=== PATIENT | male | born 1960 | race Caucasian/White ===

== ENCOUNTER 2021-11-17 09:05 | Inpatient (IN) | payer OTHER ==
[2021-11-17 09:16] VITALS: BMI 24.0
[2021-11-17] MEDS ORDERED: ACETAMINOPHEN 1000 MG/100 ML BAG IVPB ONE (09:31)
[2021-11-17] MEDS ORDERED: ALBUTEROL SO4 2.5/IPRATROPIUM 0.5 INH SOL 3 ML VIAL.NEB. NEB ONE (10:02)
[2021-11-17 10:58] LABS: HEMATOCRIT 15.7 % (35.4-49); MCHC 32.1 g/dl (32.0-35.9); MEAN CELL VOLUME 93.3 fl (80-96); MEAN PLT VOLUME 7.9 fl (7.5-11.1); PLATELET COUNT 224 10^3/uL (134-434); RBC 1.69 M/mm3 (4.00-5.60); RDW 16.6 % (11.9-15.9); WHITE BLOOD COUNT 16.8 K/mm3 (4.0-10.0)
[2021-11-17 11:05] LABS: HEMOGLOBIN 5.1 GM/dL (11.7-16.9)
[2021-11-17 11:12] LABS: CHLORIDE 110 mmol/L (98-107); SODIUM 139 mmol/L (136-145)
[2021-11-17 11:15] LABS: ANION GAP 19 MMOL/L (8-16); CO2 11 mmol/L (21-32); GLUCOSE,RANDOM 141 mg/dL (74-106)
[2021-11-17 11:16] LABS: ALBUMIN 2.5 g/dl (3.4-5.0)
[2021-11-17 11:18] LABS: SGPT/ALT 25 U/L (13-61)
[2021-11-17 11:19] LABS: SGOT/AST 21 U/L (15-37)
[2021-11-17 11:20] LABS: BILIRUBIN,TOTAL 0.4 mg/dL (0.2-1); TOT PROT 6.2 g/dl (6.4-8.2)
[2021-11-17 11:21] LABS: ALK PHOS 97 U/L (45-117); BLOOD UREA NITROGEN 132.3 mg/dL (7-18); CALCIUM 6.9 mg/dL (8.5-10.1); CREATININE 11.6 mg/dL (0.55-1.3)
[2021-11-17] MEDS ORDERED: LACTATED RINGERS SOLUTION 1000 ML INFUS.BAG IV ONE (11:25)
[2021-11-17] MEDS ORDERED: VANCOMYCIN 1 GM in D5W (PRE-DOCKED) 1,000 MG/250 ML IVPB ONE (11:25)
[2021-11-17] MEDS ORDERED: CEFEPIME HCL/D5W 2 GM/50 ML BAG IVPB ONE (11:25)
[2021-11-17] MEDS ORDERED: VANCOMYCIN/WATER FOR INJ (PEG) 1,000 MG/200 ML BAG IVPB ONE ×2 (11:27→11:29)
[2021-11-17] MEDS ORDERED: CEFEPIME 2 GM/100 ML BAG IVPB ONE (11:28)
[2021-11-17] MEDS ORDERED: CALCIUM GLUCONATE 10% - 1,000 MG/10 ML VIAL IVPUSH ONE ×2 (11:53→15:20)
[2021-11-17] MEDS ORDERED: SODIUM BICARBONATE 8.4% 50 MEQ/50 ML DISP.SYRIN IVPUSH ONE ×2 (11:54→15:54)
[2021-11-17 11:55] LABS: ERYTHROCYTE SEDIMENTATION RATE 107 mm/hr (0-20)
[2021-11-17] MEDS ORDERED: SODIUM BICARBONATE 8.4% - 50 ML ONE ×2 (12:28→17:28)
[2021-11-17] MEDS ORDERED: CALCIUM GLUCONATE 10% - 1,000 MG/10 ML VIAL ONE ×2 (12:28→16:39)
[2021-11-17 12:29] LABS: ANISOCYTOSIS 2+; MACROCYTOSIS 1+; OVALOCYTE 2+; TEAR DROP CELLS 1+
[2021-11-17] MEDS ORDERED: LACTATED RINGERS SOLUTION 1,000 ML/1,000 ML INFUS.BAG IV STA (12:55)
[2021-11-17] MEDS ORDERED: SODIUM BICARBONATE 8.4% - 50 MEQ in SODIUM CHLORIDE 0.45% 1,000 ML IV SCH (14:00)
[2021-11-17] MEDS ORDERED: SODIUM BICARBONATE 8.4% 50 MEQ/50 ML VIAL ONE ×2 (14:03→17:27)
[2021-11-17 14:05] LABS: HEMATOCRIT 14.6 % (35.4-49); MCH 29.2 pg (25.7-33.7); MCHC 31.2 g/dl (32.0-35.9); MEAN CELL VOLUME 93.7 fl (80-96); MEAN PLT VOLUME 8.3 fl (7.5-11.1); PLATELET COUNT 174 10^3/uL (134-434); RBC 1.56 M/mm3 (4.00-5.60); WHITE BLOOD COUNT 16.9 K/mm3 (4.0-10.0)
[2021-11-17] MEDS ORDERED: ONDANSETRON 4 MG/2 ML VIAL IVPB ONE (14:06)
[2021-11-17 14:11] LABS: HEMOGLOBIN 4.6 GM/dL (11.7-16.9)
[2021-11-17 14:12] LABS: INR 1.25 (0.83-1.09); PROTHROMBIN TIME (PATIENT) 14.4 SEC (9.7-13.0)
[2021-11-17 14:14] LABS: ACTIVATED PTT 30.8 SECONDS (25.2-36.5)
[2021-11-17] MEDS ORDERED: ONDANSETRON 4 MG/2 ML VIAL ONE (14:21)
[2021-11-17 14:23] LABS: CHLORIDE 110 mmol/L (98-107); SODIUM 141 mmol/L (136-145)
[2021-11-17 14:26] LABS: ANION GAP 19 MMOL/L (8-16); CO2 11 mmol/L (21-32); GLUCOSE,RANDOM 154 mg/dL (74-106)
[2021-11-17 15:09] LABS: BLOOD UREA NITROGEN 127.6 mg/dL (7-18); CALCIUM 6.8 mg/dL (8.5-10.1); CREATININE 11.1 mg/dL (0.55-1.3); LDH 225 U/L (87-246)
[2021-11-17 16:02] LABS: HIV INTERPRETATION NEGATIVE (NEGATIVE)
[2021-11-17] MEDS: SODIUM BICARBONATE 8.4% - 75 MEQ in SODIUM CHLORIDE 0.45% 1,000 ML IV SCH (17:30)
[2021-11-17 17:50] LABS: IRON SERUM 10 ug/dL (50-175); TOTAL IRON BINDING CAPACITY 170 ug/dL (250-450)
[2021-11-17] MEDS ORDERED: CLINDAMYCIN 600MG PREMIX IVPB 600 MG/50 ML BAG IVPB SCH (18:00)
[2021-11-17] MEDS: CALCITRIOL 0.25 MCG CAPSULE (FP) PO SCH (18:29)
[2021-11-17] MEDS: CALCIUM 500MG/VIT-D 200 UNITS COMBO TABLET (FP) PO SCH (18:29)
[2021-11-18] MEDS: CALCITRIOL 0.25 MCG CAPSULE (FP) PO SCH ×2 (01:23→10:19)
[2021-11-18] MEDS: SODIUM BICARBONATE 8.4% - 75 MEQ in SODIUM CHLORIDE 0.45% 1,000 ML IV SCH ×3 (01:23→18:17)
[2021-11-18 02:20] LABS: HEMATOCRIT 18.9 % (35.4-49); MCH 29.7 pg (25.7-33.7); MCHC 33.1 g/dl (32.0-35.9); MEAN CELL VOLUME 89.7 fl (80-96); MEAN PLT VOLUME 7.6 fl (7.5-11.1); PLATELET COUNT 186 10^3/uL (134-434); RBC 2.11 M/mm3 (4.00-5.60); RDW 15.3 % (11.9-15.9); WHITE BLOOD COUNT 18.9 K/mm3 (4.0-10.0)
[2021-11-18 02:33] LABS: HEMOGLOBIN 6.3 GM/dL (11.7-16.9)
[2021-11-18] MEDS ORDERED: ALBUTEROL SO4 2.5/IPRATROPIUM 0.5 INH SOL 3 ML VIAL.NEB. NEB ONE (03:18)
[2021-11-18] MEDS ORDERED: ACETAMINOPHEN 1000 MG/100 ML BAG IVPB ONE (03:18)
[2021-11-18] MEDS: CALCIUM 500MG/VIT-D 200 UNITS COMBO TABLET (FP) PO SCH (10:19)
[2021-11-18] MEDS: PANTOPRAZOLE 40 MG TABLET PO SCH (10:19)
[2021-11-18] MEDS: CEFEPIME 0.5 GM in DEXTROSE 5%-WATER - 100 ML IVPB SCH (10:21)
[2021-11-18 10:48] LABS: EPI CELLS 8 /uL (0-25.1); HYALINE CASTS 1 /uL (0-3.1); PH,URINE 7.5 (5.0-8.0); URINE APPEARANCE CLEAR; URINE BACTERIA 20 /uL (0-1359); URINE BILIRUBIN NEGATIVE (NEGATIVE); URINE COLOR YELLOW; URINE GLUCOSE (UA) NEGATIVE (NEGATIVE); URINE KETONE NEGATIVE (NEGATIVE); URINE LEUK ESTERASE NEGATIVE (NEGATIVE); URINE NITRITE NEGATIVE (NEGATIVE); URINE PROTEIN 2+ (NEGATIVE); URINE RBC 34 /uL (0-23.9); URINE UROBILINOGEN 0.2 mg/dL (0.2-1.0); URINE WBC 18 /uL (0-25.8)
[2021-11-18 13:20] LABS: INR 1.22 (0.83-1.09); PROTHROMBIN TIME (PATIENT) 14.1 SEC (9.7-13.0)
[2021-11-18 13:26] LABS: HEMATOCRIT 23.5 % (35.4-49); MCH 31.4 pg (25.7-33.7); MCHC 33.8 g/dl (32.0-35.9); MEAN CELL VOLUME 92.7 fl (80-96); MEAN PLT VOLUME 8.1 fl (7.5-11.1); PLATELET COUNT 204 10^3/uL (134-434); RBC 2.53 M/mm3 (4.00-5.60); RDW 15.5 % (11.9-15.9); WHITE BLOOD COUNT 19.3 K/mm3 (4.0-10.0)
[2021-11-18 13:36] LABS: CHLORIDE 111 mmol/L (98-107); SODIUM 143 mmol/L (136-145)
[2021-11-18 13:38] LABS: CALCIUM 7.2 mg/dL (8.5-10.1)
[2021-11-18 13:39] LABS: ALBUMIN 2.3 g/dl (3.4-5.0); ANION GAP 18 MMOL/L (8-16); CO2 14 mmol/L (21-32); GLUCOSE,RANDOM 116 mg/dL (74-106)
[2021-11-18 13:42] LABS: PHOSPHOROUS 7.8 mg/dL (2.5-4.9); SGOT/AST 20 U/L (15-37); SGPT/ALT 23 U/L (13-61)
[2021-11-18 13:43] LABS: BILIRUBIN,TOTAL 0.6 mg/dL (0.2-1); TOT PROT 5.9 g/dl (6.4-8.2)
[2021-11-18 13:45] LABS: ALK PHOS 87 U/L (45-117)
[2021-11-18 13:46] LABS: BLOOD UREA NITROGEN 125.9 mg/dL (7-18); CREATININE 10.8 mg/dL (0.55-1.3)
[2021-11-18] MEDS ORDERED: SODIUM BICARBONATE 8.4% 50 MEQ/50 ML VIAL IVPUSH ONE (13:54)
[2021-11-18] MEDS ORDERED: CALCIUM GLUCONATE 10% - 1,000 MG/10 ML VIAL IVPUSH ONE (13:54)
[2021-11-18] MEDS: ONDANSETRON 4 MG/2 ML VIAL IVPUSH PRN ×2 (14:26→22:56)
[2021-11-18] MEDS: SODIUM BICARBONATE 650 MG TABLET PO SCH ×2 (14:32→22:55)
[2021-11-18 14:47] LABS: ANISOCYTOSIS 2+; MACROCYTOSIS 0; OVALOCYTE 0
[2021-11-18 16:15] LABS: CHLORIDE 110 mmol/L (98-107); SODIUM 143 mmol/L (136-145)
[2021-11-18 16:17] LABS: ALBUMIN 2.1 g/dl (3.4-5.0); ANION GAP 17 MMOL/L (8-16); CALCIUM 7.1 mg/dL (8.5-10.1); CO2 16 mmol/L (21-32)
[2021-11-18 16:18] LABS: GLUCOSE,RANDOM 176 mg/dL (74-106)
[2021-11-18 16:20] LABS: SGOT/AST 22 U/L (15-37)
[2021-11-18 16:21] LABS: SGPT/ALT 24 U/L (13-61)
[2021-11-18 16:22] LABS: BILIRUBIN,TOTAL 0.6 mg/dL (0.2-1); TOT PROT 5.6 g/dl (6.4-8.2)
[2021-11-18 16:23] LABS: ALK PHOS 88 U/L (45-117)
[2021-11-18 16:31] LABS: BLOOD UREA NITROGEN 123.3 mg/dL (7-18)
[2021-11-18] MEDS ORDERED: PANTOPRAZOLE SODIUM 40 MG VIAL IVPUSH ONE (21:31)
[2021-11-18] MEDS ORDERED: LIDOCAINE HCL 2% JELLY (30 ML/TUBE) TP PRN (21:33)
[2021-11-19] MEDS: SODIUM BICARBONATE 8.4% - 75 MEQ in SODIUM CHLORIDE 0.45% 1,000 ML IV SCH (03:13)
[2021-11-19] MEDS ORDERED: VANCOMYCIN/WATER FOR INJ (PEG) 1,000 MG/200 ML BAG IVPB ONE (06:38)
[2021-11-19] MEDS ORDERED: METOPROLOL TARTRATE 5 MG/5 ML VIAL IVPUSH ONE (06:56)
[2021-11-19 08:12] LABS: HEMATOCRIT 24.2 % (35.4-49); MCH 29.2 pg (25.7-33.7); MCHC 33.1 g/dl (32.0-35.9); MEAN CELL VOLUME 88.4 fl (80-96); MEAN PLT VOLUME 7.5 fl (7.5-11.1); PLATELET COUNT 211 10^3/uL (134-434); RBC 2.74 M/mm3 (4.00-5.60); RDW 15.9 % (11.9-15.9); WHITE BLOOD COUNT 17.5 K/mm3 (4.0-10.0)
[2021-11-19 08:29] LABS: CHLORIDE 107 mmol/L (98-107); SODIUM 142 mmol/L (136-145)
[2021-11-19 08:35] LABS: INR 1.13 (0.83-1.09)
[2021-11-19 08:36] LABS: ANION GAP 17 MMOL/L (8-16); CO2 19 mmol/L (21-32); GLUCOSE,RANDOM 116 mg/dL (74-106); MAGNESIUM 1.9 mg/dL (1.8-2.4)
[2021-11-19 08:37] LABS: ACTIVATED PTT 29.8 SECONDS (25.2-36.5)
[2021-11-19 08:39] LABS: BLOOD UREA NITROGEN 126.5 mg/dL (7-18); CALCIUM 6.9 mg/dL (8.5-10.1); CREATININE 10.5 mg/dL (0.55-1.3)
[2021-11-19] MEDS: CALCIUM ACETATE 667 MG CAPSULE (FP) PO SCH ×3 (09:42→18:38)
[2021-11-19] MEDS: CALCIUM 500MG/VIT-D 200 UNITS COMBO TABLET (FP) PO SCH ×2 (09:44→22:02)
[2021-11-19] MEDS: SODIUM BICARBONATE 650 MG TABLET PO SCH ×2 (09:44→22:02)
[2021-11-19] MEDS: PANTOPRAZOLE 40 MG TABLET PO SCH (09:44)
[2021-11-19] MEDS ORDERED: MIDAZOLAM HCL 2 MG/2 ML SINGLE DOSE VIAL ONE (09:47)
[2021-11-19 10:40] LABS: ANISOCYTOSIS 0; HELMET CELLS 0; HOWELL-JOLLY BODIES 0; MACROCYTOSIS 0; OVALOCYTE 0; ROULEAU 0; SICKELED CELLS 0; TARGET CELLS 0; TEAR DROP CELLS 0; TOXIC GRANULATION 0
[2021-11-19] MEDS: CEFEPIME 0.5 GM in DEXTROSE 5%-WATER - 100 ML IVPB SCH (10:45)
[2021-11-19] MEDS ORDERED: METOPROLOL TARTRATE 25 MG TABLET (FP) PO SCH (11:45)
[2021-11-19] MEDS ORDERED: CALCIUM GLUCONATE 10% - 1,000 MG/10 ML VIAL IVPB ONE (11:59)
[2021-11-19] MEDS ORDERED: SODIUM CHLORIDE 0.45% 1,000 ML IV SCH (12:04)
[2021-11-19] MEDS ORDERED: PROPOFOL 20 ML ONE (14:08)
[2021-11-19] MEDS ORDERED: ROCURONIUM BROMIDE 50 MG/5 ML SYRINGE ONE (14:11)
[2021-11-19] MEDS ORDERED: DEXAMETHASONE SOD PHOSPHATE 4 MG/1 ML VIAL ONE (16:00)
[2021-11-19] MEDS ORDERED: ONDANSETRON 4 MG/2 ML VIAL IVPUSH PRN ×2 (16:03→17:03)
[2021-11-19] MEDS ORDERED: NEOSTIGMINE METHYLSULFATE 0.5 MG/1 ML - 10 ML MDV ONE (16:16)
[2021-11-19] MEDS ORDERED: oxyCODONE HCL 5 MG TABLET PO PRN ×2 (16:36→16:37)
[2021-11-19] MEDS ORDERED: morphine CARPU-JECT 4 MG/1 ML DISP.SYRIN IVPUSH PRN (16:37)
[2021-11-19] MEDS ORDERED: morphine SULFATE 4 MG/ML VIAL IVPUSH PRN (16:58)
[2021-11-19 17:06] LABS: HEMATOCRIT 22.8 % (35.4-49); HEMOGLOBIN 7.5 GM/dL (11.7-16.9); MCH 29.1 pg (25.7-33.7); MCHC 32.7 g/dl (32.0-35.9); MEAN PLT VOLUME 7.3 fl (7.5-11.1); PLATELET COUNT 235 10^3/uL (134-434); RBC 2.56 M/mm3 (4.00-5.60); RDW 15.8 % (11.9-15.9); WHITE BLOOD COUNT 22.7 K/mm3 (4.0-10.0)
[2021-11-19 17:34] LABS: ANISOCYTOSIS 1+; MACROCYTOSIS 1+
[2021-11-19] MEDS ORDERED: CALCIUM 500MG/VIT-D 200 UNITS COMBO TABLET (FP) PO SCH (22:00)
[2021-11-19] MEDS: METOPROLOL TARTRATE 25 MG TABLET (FP) PO SCH (22:03)
[2021-11-19] MEDS: SODIUM CHLORIDE 0.45% 1,000 ML IV SCH (22:03)
[2021-11-19] MEDS: ACETAMINOPHEN 1000 MG/100 ML BAG IVPB SCH (23:52)
[2021-11-20 01:34] LABS: HEMATOCRIT 26.1 % (35.4-49); HEMOGLOBIN 8.3 GM/dL (11.7-16.9); MCH 29.8 pg (25.7-33.7); MCHC 31.7 g/dl (32.0-35.9); MEAN CELL VOLUME 94.1 fl (80-96); MEAN PLT VOLUME 7.9 fl (7.5-11.1); PLATELET COUNT 210 10^3/uL (134-434); RBC 2.77 M/mm3 (4.00-5.60); WHITE BLOOD COUNT 23.4 K/mm3 (4.0-10.0)
[2021-11-20] MEDS: SODIUM CHLORIDE 0.45% 1,000 ML IV SCH ×3 (05:10→21:57)
[2021-11-20] MEDS: ACETAMINOPHEN 1000 MG/100 ML BAG IVPB SCH ×2 (05:11→09:59)
[2021-11-20] MEDS ORDERED: METOPROLOL TARTRATE 5 MG/5 ML VIAL IVPUSH PRN (08:38)
[2021-11-20] MEDS: CALCIUM ACETATE 667 MG CAPSULE (FP) PO SCH ×3 (09:49→17:11)
[2021-11-20] MEDS: CALCIUM 500MG/VIT-D 200 UNITS COMBO TABLET (FP) PO SCH ×2 (09:50→22:11)
[2021-11-20] MEDS: METOPROLOL TARTRATE 25 MG TABLET (FP) PO SCH ×2 (09:50→22:04)
[2021-11-20] MEDS: SODIUM BICARBONATE 650 MG TABLET PO SCH ×2 (09:50→22:11)
[2021-11-20] MEDS: PANTOPRAZOLE 40 MG TABLET PO SCH (09:50)
[2021-11-20] MEDS: CEFEPIME 0.5 GM in DEXTROSE 5%-WATER - 100 ML IVPB SCH (11:00)
[2021-11-20] MEDS: CLINDAMYCIN 600MG PREMIX IVPB 600 MG/50 ML BAG IVPB SCH (18:54)
[2021-11-21] MEDS: CLINDAMYCIN 600MG PREMIX IVPB 600 MG/50 ML BAG IVPB SCH ×2 (01:27→11:38)
[2021-11-21] MEDS: SODIUM CHLORIDE 0.45% 1,000 ML IV SCH (06:02)
[2021-11-21] MEDS: COLLAGENASE CLOSTRIDIUM HIST. 30 GRAMS TUBE TP SCH (09:44)
[2021-11-21] MEDS: CEFEPIME 0.5 GM in DEXTROSE 5%-WATER - 100 ML IVPB SCH (09:45)
[2021-11-21] MEDS: METOPROLOL TARTRATE 25 MG TABLET (FP) PO SCH ×2 (09:55→21:16)
[2021-11-21] MEDS: SODIUM BICARBONATE 650 MG TABLET PO SCH ×2 (10:01→21:16)
[2021-11-21] MEDS: CALCIUM ACETATE 667 MG CAPSULE (FP) PO SCH ×3 (10:02→17:11)
[2021-11-21] MEDS: PANTOPRAZOLE 40 MG TABLET PO SCH (10:02)
[2021-11-21] MEDS: CALCIUM 500MG/VIT-D 200 UNITS COMBO TABLET (FP) PO SCH ×2 (10:02→21:16)
[2021-11-21] MEDS: DAPTOMYCIN 400 MG in SODIUM CHLORIDE 50 ML IVPB SCH (15:54)
[2021-11-21] MEDS: TAMSULOSIN HCL 0.4 MG CAP PO SCH (15:54)
[2021-11-21 16:50] LABS: HEMATOCRIT 21.4 % (35.4-49); MCH 29.3 pg (25.7-33.7); MCHC 32.9 g/dl (32.0-35.9); MEAN CELL VOLUME 88.9 fl (80-96); MEAN PLT VOLUME 6.9 fl (7.5-11.1); PLATELET COUNT 223 10^3/uL (134-434); RDW 16.1 % (11.9-15.9); WHITE BLOOD COUNT 22.9 K/mm3 (4.0-10.0)
[2021-11-21 17:07] LABS: ATYPICAL pANCA <1:20 titer (Neg:<1:20); C-ANCA <1:20 titer (Neg:<1:20)
[2021-11-21 17:07] LABS: ATYPICAL pANCA <1:20 titer (Neg:<1:20); C-ANCA <1:20 titer (Neg:<1:20)
[2021-11-21 17:15] LABS: CHLORIDE 99 mmol/L (98-107); SODIUM 133 mmol/L (136-145)
[2021-11-21 17:17] LABS: ALBUMIN 2.2 g/dl (3.4-5.0); ANION GAP 19 MMOL/L (8-16); CO2 16 mmol/L (21-32); GLUCOSE,RANDOM 185 mg/dL (74-106)
[2021-11-21 17:20] LABS: SGOT/AST 13 U/L (15-37); SGPT/ALT 18 U/L (13-61)
[2021-11-21 17:22] LABS: BILIRUBIN,TOTAL 0.3 mg/dL (0.2-1); TOT PROT 5.8 g/dl (6.4-8.2)
[2021-11-21 17:23] LABS: ALK PHOS 81 U/L (45-117); BLOOD UREA NITROGEN 131.8 mg/dL (7-18); CALCIUM 6.4 mg/dL (8.5-10.1); CREATININE 10.8 mg/dL (0.55-1.3)
[2021-11-21 18:00] LABS: ANISOCYTOSIS 1+; MACROCYTOSIS 1+; OVALOCYTE 1+
[2021-11-22 04:14] LABS: OPIATES, URI NEGATIVE (NEGATIVE); PHENCYCLIDINE,URINE NEGATIVE (NEGATIVE); URINE BARBITURATES NEGATIVE (NEGATIVE)
[2021-11-22 04:15] LABS: METHADONE, UR NEGATIVE (NEGATIVE)
[2021-11-22 04:45] LABS: COCAINE, UR NEGATIVE (NEGATIVE); URINE AMPHETAMINES NEGATIVE (NEGATIVE); URINE BENZODIAZEPINES POSITIVE (NEGATIVE)
[2021-11-22] MEDS ORDERED: CALCIUM GLUCONATE 10% - 1,000 MG/10 ML VIAL IVPUSH ONE (07:55)
[2021-11-22] MEDS ORDERED: LORazepam 1 MG TABLET PO PRN (09:40)
[2021-11-22] MEDS: SODIUM BICARBONATE 650 MG TABLET PO SCH ×2 (10:05→23:30)
[2021-11-22] MEDS: TAMSULOSIN HCL 0.4 MG CAP PO SCH (10:05)
[2021-11-22] MEDS: COLLAGENASE CLOSTRIDIUM HIST. 30 GRAMS TUBE TP SCH (10:05)
[2021-11-22] MEDS: CALCIUM ACETATE 667 MG CAPSULE (FP) PO SCH ×3 (10:05→18:31)
[2021-11-22] MEDS: CALCIUM 500MG/VIT-D 200 UNITS COMBO TABLET (FP) PO SCH ×2 (10:05→23:31)
[2021-11-22] MEDS: PANTOPRAZOLE 40 MG TABLET PO SCH (10:05)
[2021-11-22] MEDS: METOPROLOL TARTRATE 25 MG TABLET (FP) PO SCH ×2 (10:05→23:31)
[2021-11-22] MEDS: LORazepam 2 MG TABLET PO SCH ×3 (11:43→23:41)
[2021-11-22] MEDS ORDERED: SODIUM CHLORIDE 250 ML IV PRN ×2 (12:55→12:56)
[2021-11-22 15:27] LABS: HEMATOCRIT 17.4 % (35.4-49); MCH 29.5 pg (25.7-33.7); MCHC 32.7 g/dl (32.0-35.9); MEAN CELL VOLUME 90.3 fl (80-96); MEAN PLT VOLUME 7.5 fl (7.5-11.1); PLATELET COUNT 150 10^3/uL (134-434); RBC 1.92 M/mm3 (4.00-5.60); RDW 15.7 % (11.9-15.9)
[2021-11-22 15:38] LABS: HEMOGLOBIN 5.7 GM/dL (11.7-16.9)
[2021-11-22 15:56] LABS: CHLORIDE 103 mmol/L (98-107); SODIUM 136 mmol/L (136-145)
[2021-11-22 15:58] LABS: ANION GAP 16 MMOL/L (8-16); CO2 17 mmol/L (21-32); GLUCOSE,RANDOM 193 mg/dL (74-106)
[2021-11-22 16:01] LABS: SGOT/AST 13 U/L (15-37); SGPT/ALT 16 U/L (13-61)
[2021-11-22 16:02] LABS: TOT PROT 5.1 g/dl (6.4-8.2)
[2021-11-22 16:03] LABS: BILIRUBIN,TOTAL 0.3 mg/dL (0.2-1)
[2021-11-22 16:04] LABS: ALK PHOS 70 U/L (45-117)
[2021-11-22 16:05] LABS: BLOOD UREA NITROGEN 135.9 mg/dL (7-18); CALCIUM 5.8 mg/dL (8.5-10.1); CREATININE 11.1 mg/dL (0.55-1.3)
[2021-11-22] MEDS ORDERED: CALCIUM GLUC IN NACL, ISO-OSM 1 GM/50 ML BAG IVPB ONE (16:30)
[2021-11-22] MEDS ORDERED: CALCIUM GLUCONATE 10% - 1,000 MG/10 ML VIAL IVPB ONE (16:45)
[2021-11-22] MEDS: SODIUM CHLORIDE 1,000 ML IV SCH (18:43)
[2021-11-22] MEDS ORDERED: LORazepam 1 MG TABLET PO SCH (23:18)
[2021-11-22] MEDS: LORazepam 1 MG TABLET PO SCH (23:29)
[2021-11-22] MEDS: OLANZapine 5 MG TABLET PO SCH (23:30)
[2021-11-22] MEDS: PANTOPRAZOLE SODIUM 40 MG VIAL IVPUSH SCH (23:30)
[2021-11-23] MEDS: LORazepam 1 MG TABLET PO SCH ×4 (04:24→22:32)
[2021-11-23] MEDS: CALCIUM ACETATE 667 MG CAPSULE (FP) PO SCH ×3 (08:55→18:46)
[2021-11-23] MEDS: TAMSULOSIN HCL 0.4 MG CAP PO SCH (08:55)
[2021-11-23] MEDS: LORazepam 2 MG/ML SDV VIAL IVPUSH PRN (10:46)
[2021-11-23] MEDS: CALCIUM 500MG/VIT-D 200 UNITS COMBO TABLET (FP) PO SCH ×2 (10:50→21:12)
[2021-11-23] MEDS: OLANZapine 5 MG TABLET PO SCH ×2 (10:50→21:12)
[2021-11-23] MEDS: PANTOPRAZOLE SODIUM 40 MG VIAL IVPUSH SCH ×2 (10:55→21:12)
[2021-11-23] MEDS: METOPROLOL TARTRATE 25 MG TABLET (FP) PO SCH ×2 (10:55→21:12)
[2021-11-23] MEDS: COLLAGENASE CLOSTRIDIUM HIST. 30 GRAMS TUBE TP SCH (11:15)
[2021-11-23] MEDS: SODIUM BICARBONATE 650 MG TABLET PO SCH ×2 (12:35→21:12)
[2021-11-23] MEDS: DAPTOMYCIN 400 MG in SODIUM CHLORIDE 50 ML IVPB SCH (13:45)
[2021-11-23 14:44] LABS: HEMATOCRIT 19.6 % (35.4-49); MCH 29.6 pg (25.7-33.7); MCHC 32.6 g/dl (32.0-35.9); MEAN CELL VOLUME 90.8 fl (80-96); MEAN PLT VOLUME 7.4 fl (7.5-11.1); PLATELET COUNT 142 10^3/uL (134-434); RBC 2.16 M/mm3 (4.00-5.60); RDW 16.1 % (11.9-15.9); WHITE BLOOD COUNT 11.3 K/mm3 (4.0-10.0)
[2021-11-23] MEDS ORDERED: SODIUM CHLORIDE 250 ML IV PRN (14:45)
[2021-11-23 14:53] LABS: HEMOGLOBIN 6.4 GM/dL (11.7-16.9)
[2021-11-23 15:31] LABS: ANISOCYTOSIS 1+; MACROCYTOSIS 0; OVALOCYTE 1+; TEAR DROP CELLS 1+
[2021-11-23 16:47] LABS: CHLORIDE 106 mmol/L (98-107); SODIUM 140 mmol/L (136-145)
[2021-11-23 16:51] LABS: ALBUMIN 1.9 g/dl (3.4-5.0); ANION GAP 13 MMOL/L (8-16); CO2 22 mmol/L (21-32); GLUCOSE,RANDOM 89 mg/dL (74-106)
[2021-11-23 16:54] LABS: SGOT/AST 22 U/L (15-37); SGPT/ALT 13 U/L (13-61)
[2021-11-23 16:55] LABS: BILIRUBIN,TOTAL 0.6 mg/dL (0.2-1)
[2021-11-23 16:57] LABS: ALK PHOS 58 U/L (45-117)
[2021-11-23 17:01] LABS: BLOOD UREA NITROGEN 98.6 mg/dL (7-18); CALCIUM 6.4 mg/dL (8.5-10.1); CREATININE 8.3 mg/dL (0.55-1.3)
[2021-11-23] MEDS ORDERED: CALCIUM GLUCONATE 10% - 1,000 MG/10 ML VIAL IVPB ONE ×2 (17:07→20:30)
[2021-11-23] MEDS ORDERED: IRON SUCROSE INJECTION 200 MG in SODIUM CHLORIDE 90 ML IVPB ONE (19:00)
[2021-11-23] MEDS: SODIUM CHLORIDE 1,000 ML IV SCH (21:12)
[2021-11-23] MEDS ORDERED: ALBUTEROL SO4 HFA INHALER IH PRN (21:19)
[2021-11-23] MEDS ORDERED: ALBUTEROL SO4 2.5/IPRATROPIUM 0.5 INH SOL 3 ML VIAL.NEB. NEB ONE (22:12)
[2021-11-24] MEDS ORDERED: ALBUTEROL SO4 2.5/IPRATROPIUM 0.5 INH SOL 3 ML VIAL.NEB. NEB ONE ×2 (03:19→03:30)
[2021-11-24] MEDS: LORazepam 2 MG/ML SDV VIAL IVPUSH PRN ×4 (05:00→22:18)
[2021-11-24] MEDS: LORazepam 1 MG TABLET PO SCH ×5 (05:00→22:07)
[2021-11-24] MEDS: TAMSULOSIN HCL 0.4 MG CAP PO SCH (08:04)
[2021-11-24] MEDS: CALCIUM ACETATE 667 MG CAPSULE (FP) PO SCH ×3 (08:04→18:41)
[2021-11-24] MEDS: PANTOPRAZOLE SODIUM 40 MG VIAL IVPUSH SCH ×2 (10:05→21:03)
[2021-11-24] MEDS: SODIUM BICARBONATE 650 MG TABLET PO SCH ×2 (10:05→21:03)
[2021-11-24] MEDS: CALCIUM 500MG/VIT-D 200 UNITS COMBO TABLET (FP) PO SCH ×2 (10:05→21:03)
[2021-11-24] MEDS: METOPROLOL TARTRATE 25 MG TABLET (FP) PO SCH ×2 (10:05→21:03)
[2021-11-24] MEDS: OLANZapine 5 MG TABLET PO SCH ×2 (10:06→21:03)
[2021-11-24] MEDS: COLLAGENASE CLOSTRIDIUM HIST. 30 GRAMS TUBE TP SCH (10:50)
[2021-11-24 13:10] LABS: HEMATOCRIT 25.3 % (35.4-49); HEMOGLOBIN 8.4 GM/dL (11.7-16.9); MCH 29.5 pg (25.7-33.7); MCHC 33.2 g/dl (32.0-35.9); MEAN PLT VOLUME 7.3 fl (7.5-11.1); PLATELET COUNT 158 10^3/uL (134-434); RBC 2.84 M/mm3 (4.00-5.60); RDW 17.5 % (11.9-15.9); WHITE BLOOD COUNT 13.6 K/mm3 (4.0-10.0)
[2021-11-24 13:27] LABS: CHLORIDE 108 mmol/L (98-107); SODIUM 142 mmol/L (136-145)
[2021-11-24 13:30] LABS: ANION GAP 14 MMOL/L (8-16); BLOOD UREA NITROGEN 84.9 mg/dL (7-18); CO2 21 mmol/L (21-32); GLUCOSE,RANDOM 69 mg/dL (74-106); MAGNESIUM 1.9 mg/dL (1.8-2.4)
[2021-11-24 13:33] LABS: PHOSPHOROUS 5.8 mg/dL (2.5-4.9); SGOT/AST 19 U/L (15-37); SGPT/ALT 15 U/L (13-61)
[2021-11-24 13:35] LABS: BILIRUBIN,TOTAL 0.6 mg/dL (0.2-1); TOT PROT 5.4 g/dl (6.4-8.2)
[2021-11-24 13:36] LABS: ALK PHOS 68 U/L (45-117)
[2021-11-24 13:37] LABS: CALCIUM 6.3 mg/dL (8.5-10.1); CREATININE 8.4 mg/dL (0.55-1.3)
[2021-11-24] MEDS ORDERED: CALCIUM GLUCONATE 10% - 1,000 MG/10 ML VIAL IVPUSH ONE ×2 (14:08→18:30)
[2021-11-24 14:25] LABS: ANISOCYTOSIS 0; MACROCYTOSIS 0
[2021-11-24] MEDS: SODIUM CHLORIDE 1,000 ML IV SCH (17:13)
[2021-11-24] MEDS ORDERED: SODIUM CHLORIDE 250 ML IV PRN (17:41)
[2021-11-25] MEDS ORDERED: LORazepam 0.5 MG TABLET PO PRN
[2021-11-25] MEDS: LORazepam 2 MG/ML SDV VIAL IVPUSH PRN ×4 (02:34→23:11)
[2021-11-25] MEDS ORDERED: HALOPERIDOL LACTATE 5 MG/ML IM ONE (04:57)
[2021-11-25] MEDS: LORazepam 0.5 MG TABLET PO SCH ×4 (05:15→22:32)
[2021-11-25] MEDS: TAMSULOSIN HCL 0.4 MG CAP PO SCH (07:49)
[2021-11-25] MEDS: CALCIUM ACETATE 667 MG CAPSULE (FP) PO SCH ×3 (07:49→18:42)
[2021-11-25] MEDS: METOPROLOL TARTRATE 25 MG TABLET (FP) PO SCH ×2 (09:03→22:32)
[2021-11-25] MEDS: CALCIUM 500MG/VIT-D 200 UNITS COMBO TABLET (FP) PO SCH ×2 (09:03→22:32)
[2021-11-25 09:06] LABS: BASO % 0.1 % (0-2.0); EOS % 0.9 % (0-4.5); HEMATOCRIT 26.1 % (35.4-49); HEMOGLOBIN 8.9 GM/dL (11.7-16.9); LYMPH % 3.8 % (8-40); MCHC 34.1 g/dl (32.0-35.9); MEAN PLT VOLUME 7.1 fl (7.5-11.1); MONO % 4.8 % (3.8-10.2); NEUT % 90.4 % (42.8-82.8); PLATELET COUNT 159 10^3/uL (134-434); RBC 2.97 M/mm3 (4.00-5.60); RDW 17.2 % (11.9-15.9); WHITE BLOOD COUNT 11.8 K/mm3 (4.0-10.0)
[2021-11-25] MEDS: SODIUM BICARBONATE 650 MG TABLET PO SCH ×2 (09:09→22:33)
[2021-11-25] MEDS: OLANZapine 5 MG TABLET PO SCH ×2 (09:09→22:32)
[2021-11-25] MEDS: COLLAGENASE CLOSTRIDIUM HIST. 30 GRAMS TUBE TP SCH (09:15)
[2021-11-25] MEDS: PANTOPRAZOLE SODIUM 40 MG VIAL IVPUSH SCH ×2 (09:16→21:58)
[2021-11-25 09:22] LABS: CHLORIDE 108 mmol/L (98-107); SODIUM 145 mmol/L (136-145)
[2021-11-25 09:28] LABS: ANION GAP 9 MMOL/L (8-16); CO2 27 mmol/L (21-32); GLUCOSE,RANDOM 82 mg/dL (74-106); MAGNESIUM 1.8 mg/dL (1.8-2.4)
[2021-11-25 09:30] LABS: PHOSPHOROUS 4.2 mg/dL (2.5-4.9); SGOT/AST 26 U/L (15-37)
[2021-11-25 09:31] LABS: CREATININE 5.1 mg/dL (0.55-1.3); SGPT/ALT 16 U/L (13-61)
[2021-11-25 09:32] LABS: BILIRUBIN,TOTAL 0.6 mg/dL (0.2-1); TOT PROT 5.3 g/dl (6.4-8.2)
[2021-11-25 09:33] LABS: ALK PHOS 69 U/L (45-117)
[2021-11-25 10:09] LABS: BLOOD UREA NITROGEN 46.3 mg/dL (7-18); CALCIUM 6.7 mg/dL (8.5-10.1)
[2021-11-25 12:01] LABS: ANISOCYTOSIS 1+; MACROCYTOSIS 0
[2021-11-25] MEDS: DAPTOMYCIN 400 MG in SODIUM CHLORIDE 50 ML IVPB SCH (12:56)
[2021-11-25] MEDS ORDERED: EPOETIN ALFA-EPBX 10,000 UNIT/ML VIAL IVPUSH ONE (14:00)
[2021-11-25] MEDS ORDERED: PARICALCITOL 5 MCG/ML VIAL IVPUSH ONE (14:30)
[2021-11-26] MEDS ORDERED: LORazepam 2 MG/ML SDV VIAL IVPUSH ONE (00:31)
[2021-11-26 01:28] LABS: HEMATOCRIT 24.5 % (35.4-49); HEMOGLOBIN 8.2 GM/dL (11.7-16.9); MCH 29.8 pg (25.7-33.7); MCHC 33.2 g/dl (32.0-35.9); MEAN CELL VOLUME 89.7 fl (80-96); MEAN PLT VOLUME 7.1 fl (7.5-11.1); PLATELET COUNT 150 10^3/uL (134-434); RBC 2.74 M/mm3 (4.00-5.60); RDW 17.1 % (11.9-15.9); WHITE BLOOD COUNT 13.3 K/mm3 (4.0-10.0)
[2021-11-26] MEDS ORDERED: LORazepam 0.5 MG TABLET PO ONE (05:00)
[2021-11-26] MEDS: CALCIUM ACETATE 667 MG CAPSULE (FP) PO SCH ×3 (09:56→16:51)
[2021-11-26] MEDS: SODIUM BICARBONATE 650 MG TABLET PO SCH ×2 (09:57→21:22)
[2021-11-26] MEDS: OLANZapine 5 MG TABLET PO SCH ×2 (09:57→21:22)
[2021-11-26] MEDS: PANTOPRAZOLE SODIUM 40 MG VIAL IVPUSH SCH ×2 (09:57→21:22)
[2021-11-26] MEDS: METOPROLOL TARTRATE 25 MG TABLET (FP) PO SCH ×2 (09:57→21:22)
[2021-11-26] MEDS: TAMSULOSIN HCL 0.4 MG CAP PO SCH (09:58)
[2021-11-26] MEDS: CALCIUM 500MG/VIT-D 200 UNITS COMBO TABLET (FP) PO SCH ×2 (09:58→21:21)
[2021-11-26] MEDS: COLLAGENASE CLOSTRIDIUM HIST. 30 GRAMS TUBE TP SCH (10:00)
[2021-11-27] MEDS: CALCIUM ACETATE 667 MG CAPSULE (FP) PO SCH ×3 (09:24→16:56)
[2021-11-27] MEDS: TAMSULOSIN HCL 0.4 MG CAP PO SCH (09:24)
[2021-11-27] MEDS: COLLAGENASE CLOSTRIDIUM HIST. 30 GRAMS TUBE TP SCH (09:24)
[2021-11-27] MEDS: PANTOPRAZOLE SODIUM 40 MG VIAL IVPUSH SCH ×2 (09:24→22:21)
[2021-11-27] MEDS: CALCIUM 500MG/VIT-D 200 UNITS COMBO TABLET (FP) PO SCH ×2 (09:24→22:21)
[2021-11-27] MEDS: METOPROLOL TARTRATE 25 MG TABLET (FP) PO SCH ×2 (09:24→22:21)
[2021-11-27] MEDS: SODIUM BICARBONATE 650 MG TABLET PO SCH ×2 (09:26→22:21)
[2021-11-27] MEDS: OLANZapine 5 MG TABLET PO SCH ×2 (09:26→22:21)
[2021-11-27 09:35] LABS: HEMATOCRIT 24.4 % (35.4-49); HEMOGLOBIN 8.1 GM/dL (11.7-16.9); MCH 29.8 pg (25.7-33.7); MCHC 33.2 g/dl (32.0-35.9); MEAN CELL VOLUME 89.5 fl (80-96); MEAN PLT VOLUME 7.3 fl (7.5-11.1); PLATELET COUNT 156 10^3/uL (134-434); RBC 2.73 M/mm3 (4.00-5.60); RDW 17.3 % (11.9-15.9); WHITE BLOOD COUNT 13.1 K/mm3 (4.0-10.0)
[2021-11-27 10:03] LABS: ALBUMIN 2.2 g/dl (3.4-5.0); BLOOD UREA NITROGEN 34.9 mg/dL (7-18); MAGNESIUM 1.9 mg/dL (1.8-2.4)
[2021-11-27 10:06] LABS: PHOSPHOROUS 3.5 mg/dL (2.5-4.9)
[2021-11-27 10:07] LABS: BILIRUBIN,TOTAL 0.7 mg/dL (0.2-1); TOT PROT 5.5 g/dl (6.4-8.2)
[2021-11-27 10:08] LABS: ANISOCYTOSIS 1+; CALCIUM 7.8 mg/dL (8.5-10.1); MACROCYTOSIS 1+; OVALOCYTE 1+
[2021-11-27] MEDS: DAPTOMYCIN 400 MG in SODIUM CHLORIDE 50 ML IVPB SCH (13:05)
[2021-11-27 18:07] LABS: KAPPA/LAMBDA RATIO, UR 2.2 (1.83-14.26)
[2021-11-28 07:10] LABS: HEMATOCRIT 21.1 % (35.4-49); MCH 30.1 pg (25.7-33.7); MCHC 33.1 g/dl (32.0-35.9); MEAN CELL VOLUME 90.8 fl (80-96); MEAN PLT VOLUME 7.4 fl (7.5-11.1); PLATELET COUNT 142 10^3/uL (134-434); RBC 2.33 M/mm3 (4.00-5.60); RDW 18.4 % (11.9-15.9); WHITE BLOOD COUNT 11.9 K/mm3 (4.0-10.0)
[2021-11-28 07:32] LABS: BLOOD UREA NITROGEN 44.5 mg/dL (7-18); CALCIUM 7.1 mg/dL (8.5-10.1); MAGNESIUM 1.9 mg/dL (1.8-2.4)
[2021-11-28 07:35] LABS: CREATININE 5.4 mg/dL (0.55-1.3); PHOSPHOROUS 3.9 mg/dL (2.5-4.9)
[2021-11-28 07:37] LABS: BILIRUBIN,TOTAL 0.5 mg/dL (0.2-1); TOT PROT 5.2 g/dl (6.4-8.2)
[2021-11-28 08:51] LABS: ANISOCYTOSIS 1+; MACROCYTOSIS 0
[2021-11-28] MEDS: METOPROLOL TARTRATE 25 MG TABLET (FP) PO SCH ×3 (10:02→21:04)
[2021-11-28] MEDS: CALCIUM 500MG/VIT-D 200 UNITS COMBO TABLET (FP) PO SCH ×3 (10:02→21:04)
[2021-11-28] MEDS: OLANZapine 5 MG TABLET PO SCH ×3 (10:02→21:10)
[2021-11-28] MEDS: SODIUM BICARBONATE 650 MG TABLET PO SCH ×4 (10:02→21:04)
[2021-11-28] MEDS: PANTOPRAZOLE SODIUM 40 MG VIAL IVPUSH SCH ×4 (10:03→21:52)
[2021-11-28] MEDS: CALCIUM ACETATE 667 MG CAPSULE (FP) PO SCH ×4 (10:03→18:52)
[2021-11-28] MEDS: TAMSULOSIN HCL 0.4 MG CAP PO SCH ×2 (10:03→10:29)
[2021-11-28] MEDS: COLLAGENASE CLOSTRIDIUM HIST. 30 GRAMS TUBE TP SCH (10:03)
[2021-11-28] MEDS ORDERED: oxyCODONE HCL 5 MG TABLET PO PRN (12:23)
[2021-11-28] MEDS ORDERED: ACETAMINOPHEN 1000 MG/100 ML BAG IVPB PRN (12:23)
[2021-11-28] MEDS ORDERED: EPOETIN ALFA 10,000 UNIT/1 ML VIAL SQ ONE (12:27)
[2021-11-28] MEDS ORDERED: SODIUM CHLORIDE 0.45% 1,000 ML IV SCH (12:30)
[2021-11-28] MEDS ORDERED: IRON SUCROSE INJECTION 100 MG in SODIUM CHLORIDE 95 ML IVPB ONE (12:31)
[2021-11-28] MEDS: FERROUS SO4 325 MG TABLET (FP) PO SCH ×2 (12:50→21:04)
[2021-11-28] MEDS ORDERED: ONDANSETRON 4 MG/2 ML VIAL IVPUSH PRN (19:08)
[2021-11-28] MEDS ORDERED: ALBUTEROL SO4 HFA INHALER IH PRN (19:08)
[2021-11-28] MEDS ORDERED: LORazepam 2 MG/ML SDV VIAL IVPUSH PRN (19:08)
[2021-11-28] MEDS ORDERED: METOPROLOL TARTRATE 5 MG/5 ML VIAL IVPUSH PRN (19:08)
[2021-11-29] MEDS: SODIUM BICARBONATE 650 MG TABLET PO SCH ×3 (05:00→21:59)
[2021-11-29 08:11] LABS: HEMATOCRIT 22.9 % (35.4-49); HEMOGLOBIN 7.6 GM/dL (11.7-16.9); MCH 30.9 pg (25.7-33.7); MCHC 33.3 g/dl (32.0-35.9); MEAN PLT VOLUME 7.6 fl (7.5-11.1); PLATELET COUNT 136 10^3/uL (134-434); RBC 2.46 M/mm3 (4.00-5.60); RDW 18.5 % (11.9-15.9); WHITE BLOOD COUNT 10.2 K/mm3 (4.0-10.0)
[2021-11-29 08:35] LABS: ALBUMIN 2.1 g/dl (3.4-5.0); BLOOD UREA NITROGEN 53.7 mg/dL (7-18); CALCIUM 7.2 mg/dL (8.5-10.1)
[2021-11-29 08:38] LABS: CREATININE 5.9 mg/dL (0.55-1.3); PHOSPHOROUS 4.7 mg/dL (2.5-4.9)
[2021-11-29 08:40] LABS: BILIRUBIN,TOTAL 0.7 mg/dL (0.2-1); TOT PROT 5.4 g/dl (6.4-8.2)
[2021-11-29] MEDS: CALCIUM ACETATE 667 MG CAPSULE (FP) PO SCH ×3 (10:35→18:01)
[2021-11-29] MEDS: TAMSULOSIN HCL 0.4 MG CAP PO SCH (10:36)
[2021-11-29] MEDS: OLANZapine 5 MG TABLET PO SCH ×2 (10:38→21:58)
[2021-11-29] MEDS: METOPROLOL TARTRATE 25 MG TABLET (FP) PO SCH ×2 (10:38→21:59)
[2021-11-29] MEDS: COLLAGENASE CLOSTRIDIUM HIST. 30 GRAMS TUBE TP SCH (10:39)
[2021-11-29] MEDS: PANTOPRAZOLE SODIUM 40 MG VIAL IVPUSH SCH ×2 (10:39→21:59)
[2021-11-29 10:46] LABS: ANISOCYTOSIS 0; HELMET CELLS 0; HOWELL-JOLLY BODIES 0; MACROCYTOSIS 0; OVALOCYTE 0; ROULEAU 0; SICKELED CELLS 0; TARGET CELLS 0; TEAR DROP CELLS 0; TOXIC GRANULATION 0
[2021-11-29] MEDS: FERROUS SO4 325 MG TABLET (FP) PO SCH ×2 (10:55→21:59)
[2021-11-29] MEDS: CALCIUM 500MG/VIT-D 200 UNITS COMBO TABLET (FP) PO SCH ×2 (10:56→21:59)
[2021-11-29] MEDS ORDERED: DAPTOMYCIN 400 MG in SODIUM CHLORIDE 50 ML IVPB SCH (13:00)
[2021-11-30] MEDS: SODIUM BICARBONATE 650 MG TABLET PO SCH ×3 (06:04→21:38)
[2021-11-30] MEDS: METOPROLOL TARTRATE 25 MG TABLET (FP) PO SCH ×3 (06:27→21:37)
[2021-11-30 06:43] LABS: BASO % 0.6 % (0-2.0); EOS % 0.7 % (0-4.5); HEMATOCRIT 21.5 % (35.4-49); HEMOGLOBIN 7.1 GM/dL (11.7-16.9); LYMPH % 6.1 % (8-40); MCH 30.9 pg (25.7-33.7); MCHC 32.9 g/dl (32.0-35.9); MEAN CELL VOLUME 93.7 fl (80-96); MEAN PLT VOLUME 8.1 fl (7.5-11.1); MONO % 4.7 % (3.8-10.2); NEUT % 87.9 % (42.8-82.8); PLATELET COUNT 123 10^3/uL (134-434); RBC 2.29 M/mm3 (4.00-5.60); RDW 18.4 % (11.9-15.9); WHITE BLOOD COUNT 10.3 K/mm3 (4.0-10.0)
[2021-11-30 07:05] LABS: BLOOD UREA NITROGEN 61.6 mg/dL (7-18); CALCIUM 7.2 mg/dL (8.5-10.1)
[2021-11-30 07:06] LABS: MAGNESIUM 2.1 mg/dL (1.8-2.4)
[2021-11-30 07:09] LABS: CREATININE 6.1 mg/dL (0.55-1.3); PHOSPHOROUS 4.6 mg/dL (2.5-4.9)
[2021-11-30] MEDS: CALCIUM ACETATE 667 MG CAPSULE (FP) PO SCH ×3 (09:30→18:16)
[2021-11-30] MEDS: TAMSULOSIN HCL 0.4 MG CAP PO SCH (09:30)
[2021-11-30] MEDS: FERROUS SO4 325 MG TABLET (FP) PO SCH ×2 (09:30→21:38)
[2021-11-30] MEDS: CALCIUM 500MG/VIT-D 200 UNITS COMBO TABLET (FP) PO SCH ×2 (09:31→21:37)
[2021-11-30] MEDS: PANTOPRAZOLE SODIUM 40 MG VIAL IVPUSH SCH ×2 (09:31→21:37)
[2021-11-30] MEDS: OLANZapine 5 MG TABLET PO SCH ×2 (09:31→21:38)
[2021-11-30] MEDS ORDERED: EPOETIN ALFA 10,000 UNIT/1 ML VIAL SQ ONE (11:00)
[2021-11-30] MEDS: KCL 10 MEQ IVPB 10 MEQ/100 ML INFUS.BAG IVPB SCH ×3 (11:05→14:03)
[2021-11-30] MEDS: COLLAGENASE CLOSTRIDIUM HIST. 30 GRAMS TUBE TP SCH (11:13)
[2021-11-30] MEDS ORDERED: IRON SUCROSE INJECTION 100 MG in SODIUM CHLORIDE 95 ML IVPB ONE (11:30)
[2021-11-30] MEDS ORDERED: LIDOCAINE HCL 1%, 10 MG/ML (20ML VIAL) ONE (14:20)
[2021-11-30] MEDS ORDERED: HEPARIN NA (PORCINE) 5,000 UNITS/ML 1ML VIAL ONE (14:21)
[2021-11-30] MEDS ORDERED: PROPOFOL 20 ML ONE (15:34)
[2021-11-30] MEDS ORDERED: MIDAZOLAM HCL 2 MG/2 ML SINGLE DOSE VIAL ONE (15:34)
[2021-11-30] MEDS ORDERED: ceFAZolin SODIUM 1 GM VIAL IVPB ONE (15:52)
[2021-11-30] MEDS ORDERED: ONDANSETRON 4 MG/2 ML VIAL ONE (15:56)
[2021-11-30] MEDS ORDERED: ceFAZolin SODIUM 1 GM VIAL ONE (15:56)
[2021-11-30] MEDS ORDERED: LIDOCAINE HCL 1%, 10 MG/ML (20ML VIAL) NR ONE (16:00)
[2021-11-30] MEDS ORDERED: ONDANSETRON 4 MG/2 ML VIAL IVPUSH PRN ×3 (16:24→16:29)
[2021-11-30] MEDS ORDERED: LORazepam 2 MG/ML SDV VIAL IVPUSH PRN (16:29)
[2021-11-30] MEDS ORDERED: METOPROLOL TARTRATE 5 MG/5 ML VIAL IVPUSH PRN (16:29)
[2021-11-30] MEDS ORDERED: ALBUTEROL SO4 HFA INHALER IH PRN (16:29)
[2021-11-30] MEDS ORDERED: oxyCODONE HCL 5 MG TABLET PO PRN (16:29)
[2021-12-01] MEDS ORDERED: EPOETIN ALFA-EPBX 10,000 UNIT/ML VIAL SQ ONE ×2 (01:16→10:00)
[2021-12-01] MEDS: SODIUM BICARBONATE 650 MG TABLET PO SCH ×3 (05:29→21:20)
[2021-12-01] MEDS ORDERED: SODIUM CHLORIDE 250 ML IV PRN (07:59)
[2021-12-01 09:17] LABS: BASO % 0.7 % (0-2.0); EOS % 0.9 % (0-4.5); HEMATOCRIT 19.9 % (35.4-49); LYMPH % 8.2 % (8-40); MCH 30.6 pg (25.7-33.7); MCHC 33.4 g/dl (32.0-35.9); MEAN CELL VOLUME 91.5 fl (80-96); MONO % 5.8 % (3.8-10.2); NEUT % 84.4 % (42.8-82.8); PLATELET COUNT 115 10^3/uL (134-434); RBC 2.18 M/mm3 (4.00-5.60); RDW 18.5 % (11.9-15.9); WHITE BLOOD COUNT 8.1 K/mm3 (4.0-10.0)
[2021-12-01 09:21] LABS: HEMOGLOBIN 6.7 GM/dL (11.7-16.9)
[2021-12-01 09:36] LABS: CALCIUM 7.5 mg/dL (8.5-10.1)
[2021-12-01] MEDS: CALCIUM 500MG/VIT-D 200 UNITS COMBO TABLET (FP) PO SCH ×2 (09:36→21:20)
[2021-12-01] MEDS: PANTOPRAZOLE SODIUM 40 MG VIAL IVPUSH SCH ×2 (09:36→21:20)
[2021-12-01 09:37] LABS: BLOOD UREA NITROGEN 66.6 mg/dL (7-18)
[2021-12-01] MEDS: CALCIUM ACETATE 667 MG CAPSULE (FP) PO SCH ×3 (09:37→18:46)
[2021-12-01] MEDS: FERROUS SO4 325 MG TABLET (FP) PO SCH ×2 (09:37→21:20)
[2021-12-01] MEDS: TAMSULOSIN HCL 0.4 MG CAP PO SCH (09:37)
[2021-12-01] MEDS: OLANZapine 5 MG TABLET PO SCH ×2 (09:37→21:20)
[2021-12-01] MEDS: METOPROLOL TARTRATE 25 MG TABLET (FP) PO SCH ×2 (09:37→21:20)
[2021-12-01 09:40] LABS: PHOSPHOROUS 4.5 mg/dL (2.5-4.9)
[2021-12-01 09:41] LABS: CREATININE 6.3 mg/dL (0.55-1.3)
[2021-12-01] MEDS: COLLAGENASE CLOSTRIDIUM HIST. 30 GRAMS TUBE TP SCH (10:09)
[2021-12-01] MEDS ORDERED: DAPTOMYCIN 400 MG in SODIUM CHLORIDE 50 ML IVPB SCH (13:00)
[2021-12-02] MEDS: SODIUM BICARBONATE 650 MG TABLET PO SCH ×3 (05:09→21:20)
[2021-12-02 08:50] LABS: BASO % 0.8 % (0-2.0); EOS % 0.9 % (0-4.5); HEMATOCRIT 22.3 % (35.4-49); HEMOGLOBIN 7.3 GM/dL (11.7-16.9); LYMPH % 7.8 % (8-40); MCH 29.4 pg (25.7-33.7); MCHC 32.9 g/dl (32.0-35.9); MEAN CELL VOLUME 89.4 fl (80-96); MEAN PLT VOLUME 8.4 fl (7.5-11.1); MONO % 6.8 % (3.8-10.2); NEUT % 83.7 % (42.8-82.8); PLATELET COUNT 104 10^3/uL (134-434); RDW 17.9 % (11.9-15.9); WHITE BLOOD COUNT 8.7 K/mm3 (4.0-10.0)
[2021-12-02] MEDS: CALCIUM 500MG/VIT-D 200 UNITS COMBO TABLET (FP) PO SCH ×2 (09:10→21:19)
[2021-12-02] MEDS: TAMSULOSIN HCL 0.4 MG CAP PO SCH (09:10)
[2021-12-02] MEDS: FERROUS SO4 325 MG TABLET (FP) PO SCH ×2 (09:10→21:20)
[2021-12-02] MEDS: METOPROLOL TARTRATE 25 MG TABLET (FP) PO SCH ×2 (09:10→21:20)
[2021-12-02] MEDS: OLANZapine 5 MG TABLET PO SCH ×2 (09:10→21:20)
[2021-12-02] MEDS: PANTOPRAZOLE SODIUM 40 MG VIAL IVPUSH SCH ×2 (09:11→21:19)
[2021-12-02] MEDS: CALCIUM ACETATE 667 MG CAPSULE (FP) PO SCH ×3 (09:11→17:01)
[2021-12-02 09:17] LABS: CALCIUM 7.4 mg/dL (8.5-10.1)
[2021-12-02 09:18] LABS: BLOOD UREA NITROGEN 51.6 mg/dL (7-18); MAGNESIUM 1.9 mg/dL (1.8-2.4)
[2021-12-02] MEDS: COLLAGENASE CLOSTRIDIUM HIST. 30 GRAMS TUBE TP SCH (09:18)
[2021-12-02 09:21] LABS: PHOSPHOROUS 3.1 mg/dL (2.5-4.9)
[2021-12-02 09:22] LABS: TOT PROT 5.1 g/dl (6.4-8.2)
[2021-12-02 09:23] LABS: BILIRUBIN,TOTAL 0.7 mg/dL (0.2-1)
[2021-12-03] MEDS: SODIUM BICARBONATE 650 MG TABLET PO SCH ×3 (06:18→21:12)
[2021-12-03] MEDS: METOPROLOL TARTRATE 25 MG TABLET (FP) PO SCH ×2 (09:04→21:12)
[2021-12-03] MEDS: OLANZapine 5 MG TABLET PO SCH ×2 (09:04→21:12)
[2021-12-03] MEDS: CALCIUM 500MG/VIT-D 200 UNITS COMBO TABLET (FP) PO SCH ×2 (09:04→21:12)
[2021-12-03] MEDS: FERROUS SO4 325 MG TABLET (FP) PO SCH ×2 (09:04→21:12)
[2021-12-03] MEDS: CALCIUM ACETATE 667 MG CAPSULE (FP) PO SCH ×3 (09:04→17:10)
[2021-12-03] MEDS: TAMSULOSIN HCL 0.4 MG CAP PO SCH (09:04)
[2021-12-03] MEDS: PANTOPRAZOLE SODIUM 40 MG VIAL IVPUSH SCH ×2 (09:04→21:54)
[2021-12-03] MEDS: COLLAGENASE CLOSTRIDIUM HIST. 30 GRAMS TUBE TP SCH (09:05)
[2021-12-03] MEDS ORDERED: SODIUM CHLORIDE 250 ML IV PRN (20:30)
[2021-12-03] MEDS: PANTOPRAZOLE 40 MG TABLET PO SCH (22:22)
[2021-12-04] MEDS: SODIUM BICARBONATE 650 MG TABLET PO SCH ×3 (05:19→21:24)
[2021-12-04] MEDS: CALCIUM ACETATE 667 MG CAPSULE (FP) PO SCH ×3 (07:54→17:47)
[2021-12-04] MEDS: TAMSULOSIN HCL 0.4 MG CAP PO SCH (07:54)
[2021-12-04 09:18] LABS: BASO % 0.9 % (0-2.0); EOS % 1.5 % (0-4.5); HEMATOCRIT 21.9 % (35.4-49); HEMOGLOBIN 7.3 GM/dL (11.7-16.9); LYMPH % 9.7 % (8-40); MCH 30.9 pg (25.7-33.7); MCHC 33.4 g/dl (32.0-35.9); MEAN CELL VOLUME 92.4 fl (80-96); MEAN PLT VOLUME 8.7 fl (7.5-11.1); MONO % 5.4 % (3.8-10.2); NEUT % 82.5 % (42.8-82.8); PLATELET COUNT 117 10^3/uL (134-434); RBC 2.37 M/mm3 (4.00-5.60); WHITE BLOOD COUNT 6.9 K/mm3 (4.0-10.0)
[2021-12-04] MEDS: CALCIUM 500MG/VIT-D 200 UNITS COMBO TABLET (FP) PO SCH ×2 (09:50→21:24)
[2021-12-04] MEDS: COLLAGENASE CLOSTRIDIUM HIST. 30 GRAMS TUBE TP SCH (09:50)
[2021-12-04] MEDS: OLANZapine 5 MG TABLET PO SCH ×2 (09:50→21:24)
[2021-12-04] MEDS: METOPROLOL TARTRATE 25 MG TABLET (FP) PO SCH ×2 (09:50→21:24)
[2021-12-04] MEDS: PANTOPRAZOLE 40 MG TABLET PO SCH ×2 (09:50→21:24)
[2021-12-04] MEDS: FERROUS SO4 325 MG TABLET (FP) PO SCH ×2 (09:50→21:24)
[2021-12-04 09:54] LABS: BLOOD UREA NITROGEN 69.3 mg/dL (7-18)
[2021-12-04 09:55] LABS: CALCIUM 7.5 mg/dL (8.5-10.1); MAGNESIUM 1.9 mg/dL (1.8-2.4)
[2021-12-04 09:58] LABS: CREATININE 6.3 mg/dL (0.55-1.3); PHOSPHOROUS 3.5 mg/dL (2.5-4.9)
[2021-12-04 09:59] LABS: BILIRUBIN,TOTAL 0.5 mg/dL (0.2-1)
[2021-12-04 10:00] LABS: TOT PROT 5.3 g/dl (6.4-8.2)
[2021-12-05] MEDS: SODIUM BICARBONATE 650 MG TABLET PO SCH ×3 (05:50→21:04)
[2021-12-05] MEDS: TAMSULOSIN HCL 0.4 MG CAP PO SCH (09:13)
[2021-12-05] MEDS: FERROUS SO4 325 MG TABLET (FP) PO SCH ×2 (09:13→21:03)
[2021-12-05] MEDS: PANTOPRAZOLE 40 MG TABLET PO SCH ×2 (09:13→21:02)
[2021-12-05] MEDS: OLANZapine 5 MG TABLET PO SCH ×2 (09:14→21:04)
[2021-12-05] MEDS: CALCIUM ACETATE 667 MG CAPSULE (FP) PO SCH ×3 (09:14→16:36)
[2021-12-05] MEDS: COLLAGENASE CLOSTRIDIUM HIST. 30 GRAMS TUBE TP SCH (09:14)
[2021-12-05] MEDS: CALCIUM 500MG/VIT-D 200 UNITS COMBO TABLET (FP) PO SCH ×2 (09:14→21:03)
[2021-12-05] MEDS: METOPROLOL TARTRATE 25 MG TABLET (FP) PO SCH ×2 (09:15→21:03)
[2021-12-05 10:11] LABS: HEMATOCRIT 21.5 % (35.4-49); HEMOGLOBIN 7.2 GM/dL (11.7-16.9); MCH 30.3 pg (25.7-33.7); MCHC 33.4 g/dl (32.0-35.9); MEAN CELL VOLUME 90.9 fl (80-96); PLATELET COUNT 98 10^3/uL (134-434); RBC 2.36 M/mm3 (4.00-5.60); RDW 18.4 % (11.9-15.9); WHITE BLOOD COUNT 6.4 K/mm3 (4.0-10.0)
[2021-12-05 10:39] LABS: BLOOD UREA NITROGEN 48.9 mg/dL (7-18); CALCIUM 7.5 mg/dL (8.5-10.1); MAGNESIUM 1.8 mg/dL (1.8-2.4)
[2021-12-05 10:41] LABS: CREATININE 4.5 mg/dL (0.55-1.3); PHOSPHOROUS 3.1 mg/dL (2.5-4.9)
[2021-12-05] MEDS ORDERED: NIFEdipine E.R. 30 MG TABLET PO PRN (11:30)
[2021-12-05] MEDS ORDERED: NIFEdipine E.R. 30 MG TABLET PO SCH (11:30)
[2021-12-06] MEDS: SODIUM BICARBONATE 650 MG TABLET PO SCH ×3 (05:44→21:14)
[2021-12-06 08:38] LABS: HEMATOCRIT 19.6 % (35.4-49); MCH 30.4 pg (25.7-33.7); MCHC 32.9 g/dl (32.0-35.9); MEAN CELL VOLUME 92.3 fl (80-96); MEAN PLT VOLUME 9.2 fl (7.5-11.1); PLATELET COUNT 108 10^3/uL (134-434); RBC 2.13 M/mm3 (4.00-5.60); RDW 18.6 % (11.9-15.9); WHITE BLOOD COUNT 5.7 K/mm3 (4.0-10.0)
[2021-12-06] MEDS ORDERED: EPOETIN ALFA-EPBX 10,000 UNIT/ML VIAL IVPUSH ONE (09:00)
[2021-12-06] MEDS ORDERED: IRON SUCROSE INJECTION 100 MG in SODIUM CHLORIDE 95 ML IVPB ONE (09:00)
[2021-12-06] MEDS ORDERED: SODIUM CHLORIDE 250 ML IV PRN (09:00)
[2021-12-06 09:02] LABS: HEMOGLOBIN 6.5 GM/dL (11.7-16.9)
[2021-12-06 09:18] LABS: BLOOD UREA NITROGEN 51.8 mg/dL (7-18); CALCIUM 7.5 mg/dL (8.5-10.1)
[2021-12-06 09:22] LABS: CREATININE 5.2 mg/dL (0.55-1.3)
[2021-12-06] MEDS: PANTOPRAZOLE 40 MG TABLET PO SCH ×2 (11:08→21:14)
[2021-12-06] MEDS: OLANZapine 5 MG TABLET PO SCH ×2 (11:08→21:14)
[2021-12-06] MEDS: FERROUS SO4 325 MG TABLET (FP) PO SCH ×2 (11:08→21:14)
[2021-12-06] MEDS: CALCIUM 500MG/VIT-D 200 UNITS COMBO TABLET (FP) PO SCH ×2 (11:09→21:14)
[2021-12-06] MEDS: NIFEdipine E.R. 30 MG TABLET PO SCH (11:09)
[2021-12-06] MEDS: TAMSULOSIN HCL 0.4 MG CAP PO SCH (11:09)
[2021-12-06] MEDS: METOPROLOL TARTRATE 25 MG TABLET (FP) PO SCH ×2 (11:09→21:14)
[2021-12-06] MEDS: COLLAGENASE CLOSTRIDIUM HIST. 30 GRAMS TUBE TP SCH (11:13)
[2021-12-06] MEDS: CALCIUM ACETATE 667 MG CAPSULE (FP) PO SCH ×3 (12:31→18:12)
[2021-12-06 18:39] LABS: HEMATOCRIT 23.7 % (35.4-49); MCH 30.3 pg (25.7-33.7); MCHC 34.2 g/dl (32.0-35.9); MEAN CELL VOLUME 88.7 fl (80-96); MEAN PLT VOLUME 8.7 fl (7.5-11.1); PLATELET COUNT 95 10^3/uL (134-434); RBC 2.67 M/mm3 (4.00-5.60); RDW 18.3 % (11.9-15.9); WHITE BLOOD COUNT 7.6 K/mm3 (4.0-10.0)
[2021-12-06 18:44] LABS: HEMOGLOBIN 8.1 GM/dL (11.7-16.9)
[2021-12-06] MEDS ORDERED: ALBUTEROL SO4 HFA INHALER IH PRN (23:57)
[2021-12-06] MEDS ORDERED: ONDANSETRON 4 MG/2 ML VIAL IVPUSH PRN (23:57)
[2021-12-06] MEDS ORDERED: METOPROLOL TARTRATE 5 MG/5 ML VIAL IVPUSH PRN (23:57)
[2021-12-07] MEDS: SODIUM BICARBONATE 650 MG TABLET PO SCH ×3 (07:30→22:10)
[2021-12-07] MEDS: CALCIUM ACETATE 667 MG CAPSULE (FP) PO SCH ×3 (07:30→17:13)
[2021-12-07 10:35] LABS: BASO % 0.6 % (0-2.0); EOS % 1.6 % (0-4.5); HEMATOCRIT 24.5 % (35.4-49); HEMOGLOBIN 8.3 GM/dL (11.7-16.9); MCH 30.7 pg (25.7-33.7); MCHC 33.9 g/dl (32.0-35.9); MEAN CELL VOLUME 90.4 fl (80-96); MEAN PLT VOLUME 9.3 fl (7.5-11.1); MONO % 5.8 % (3.8-10.2); PLATELET COUNT 111 10^3/uL (134-434); RBC 2.71 M/mm3 (4.00-5.60); RDW 18.6 % (11.9-15.9); WHITE BLOOD COUNT 7.4 K/mm3 (4.0-10.0)
[2021-12-07] MEDS: FERROUS SO4 325 MG TABLET (FP) PO SCH ×2 (10:47→22:10)
[2021-12-07] MEDS: TAMSULOSIN HCL 0.4 MG CAP PO SCH (10:47)
[2021-12-07] MEDS: OLANZapine 5 MG TABLET PO SCH ×2 (10:48→22:11)
[2021-12-07] MEDS: CALCIUM 500MG/VIT-D 200 UNITS COMBO TABLET (FP) PO SCH ×2 (10:48→22:10)
[2021-12-07] MEDS: PANTOPRAZOLE 40 MG TABLET PO SCH ×2 (10:48→22:10)
[2021-12-07] MEDS: NIFEdipine E.R. 30 MG TABLET PO SCH (10:48)
[2021-12-07] MEDS: METOPROLOL TARTRATE 25 MG TABLET (FP) PO SCH ×2 (10:48→22:10)
[2021-12-07 10:57] LABS: BLOOD UREA NITROGEN 36.3 mg/dL (7-18); MAGNESIUM 1.9 mg/dL (1.8-2.4)
[2021-12-07 11:00] LABS: CREATININE 3.8 mg/dL (0.55-1.3)
[2021-12-07] MEDS: COLLAGENASE CLOSTRIDIUM HIST. 30 GRAMS TUBE TP SCH (11:56)
[2021-12-07] MEDS ORDERED: EPOETIN ALFA-EPBX 10,000 UNIT/ML VIAL SQ ONE (16:22)
[2021-12-08] MEDS: SODIUM BICARBONATE 650 MG TABLET PO SCH ×3 (06:00→21:24)
[2021-12-08] MEDS ORDERED: SODIUM CHLORIDE 250 ML IV PRN (08:30)
[2021-12-08] MEDS ORDERED: EPOETIN ALFA-EPBX 10,000 UNIT, EPOETIN ALFA-EPBX 4,000 UNIT IVPUSH ONE (09:00)
[2021-12-08 09:10] LABS: HEMATOCRIT 22.7 % (35.4-49); HEMOGLOBIN 7.5 GM/dL (11.7-16.9); MCHC 33.2 g/dl (32.0-35.9); MEAN CELL VOLUME 90.3 fl (80-96); MEAN PLT VOLUME 9.4 fl (7.5-11.1); PLATELET COUNT 129 10^3/uL (134-434); RBC 2.52 M/mm3 (4.00-5.60); RDW 18.2 % (11.9-15.9); WHITE BLOOD COUNT 10.1 K/mm3 (4.0-10.0)
[2021-12-08 09:47] LABS: CALCIUM 7.5 mg/dL (8.5-10.1)
[2021-12-08 09:51] LABS: CREATININE 4.9 mg/dL (0.55-1.3)
[2021-12-08] MEDS: VANCOMYCIN 1 GM/200 ML PREMIX BAG IVPB SCH (10:28)
[2021-12-08] MEDS: FERROUS SO4 325 MG TABLET (FP) PO SCH ×2 (10:54→21:23)
[2021-12-08] MEDS: CALCIUM ACETATE 667 MG CAPSULE (FP) PO SCH ×3 (10:54→17:17)
[2021-12-08] MEDS: TAMSULOSIN HCL 0.4 MG CAP PO SCH (10:54)
[2021-12-08] MEDS: CALCIUM 500MG/VIT-D 200 UNITS COMBO TABLET (FP) PO SCH ×2 (10:55→21:23)
[2021-12-08] MEDS: PANTOPRAZOLE 40 MG TABLET PO SCH ×2 (10:55→21:23)
[2021-12-08] MEDS: NIFEdipine E.R. 30 MG TABLET PO SCH (10:55)
[2021-12-08] MEDS: METOPROLOL TARTRATE 25 MG TABLET (FP) PO SCH ×2 (10:55→21:24)
[2021-12-08] MEDS: OLANZapine 5 MG TABLET PO SCH ×2 (10:56→21:24)
[2021-12-08] MEDS: COLLAGENASE CLOSTRIDIUM HIST. 30 GRAMS TUBE TP SCH (10:56)
[2021-12-08] MEDS ORDERED: VANCOMYCIN/WATER 1,250 MG/250 ML BAG IVPB SCH (14:39)
[2021-12-08] MEDS ORDERED: VANCOMYCIN 1 GM/200 ML PREMIX BAG IVPB SCH (15:44)
[2021-12-09] MEDS: SODIUM BICARBONATE 650 MG TABLET PO SCH ×3 (05:49→22:18)
[2021-12-09] MEDS: CALCIUM 500MG/VIT-D 200 UNITS COMBO TABLET (FP) PO SCH ×2 (09:25→22:18)
[2021-12-09] MEDS: PANTOPRAZOLE 40 MG TABLET PO SCH ×2 (09:25→22:18)
[2021-12-09] MEDS: CALCIUM ACETATE 667 MG CAPSULE (FP) PO SCH ×3 (09:25→18:25)
[2021-12-09] MEDS: NIFEdipine E.R. 30 MG TABLET PO SCH (09:26)
[2021-12-09] MEDS: OLANZapine 5 MG TABLET PO SCH ×2 (09:27→22:18)
[2021-12-09] MEDS: TAMSULOSIN HCL 0.4 MG CAP PO SCH (09:27)
[2021-12-09] MEDS: FERROUS SO4 325 MG TABLET (FP) PO SCH ×2 (09:27→22:18)
[2021-12-09] MEDS: METOPROLOL TARTRATE 25 MG TABLET (FP) PO SCH ×2 (09:27→22:18)
[2021-12-09] MEDS: COLLAGENASE CLOSTRIDIUM HIST. 30 GRAMS TUBE TP SCH (10:09)
[2021-12-09 10:47] LABS: BILIRUBIN,TOTAL 0.6 mg/dL (0.2-1)
[2021-12-09 10:48] LABS: ALBUMIN 2.2 g/dl (3.4-5.0); CALCIUM 7.9 mg/dL (8.5-10.1); TOT PROT 5.8 g/dl (6.4-8.2)
[2021-12-09 10:50] LABS: MAGNESIUM 1.6 mg/dL (1.8-2.4)
[2021-12-09 10:51] LABS: PHOSPHOROUS 1.8 mg/dL (2.5-4.9)
[2021-12-09 12:24] LABS: HEMATOCRIT 23.9 % (35.4-49); HEMOGLOBIN 8.1 GM/dL (11.7-16.9); MCH 31.2 pg (25.7-33.7); MCHC 33.8 g/dl (32.0-35.9); MEAN CELL VOLUME 92.4 fl (80-96); MEAN PLT VOLUME 8.9 fl (7.5-11.1); PLATELET COUNT 119 10^3/uL (134-434); RBC 2.58 M/mm3 (4.00-5.60); RDW 17.8 % (11.9-15.9); WHITE BLOOD COUNT 8.2 K/mm3 (4.0-10.0)
[2021-12-09] MEDS ORDERED: MAGNESIUM OXIDE 400 MG TABLET (FP) PO ONE (12:31)
[2021-12-09] MEDS ORDERED: INSULIN (NOVOLOG) ASPART 100 UNITS/ML 10ML VIAL ONE (16:30)
[2021-12-10] MEDS: SODIUM BICARBONATE 650 MG TABLET PO SCH ×4 (06:37→21:06)
[2021-12-10] MEDS: TAMSULOSIN HCL 0.4 MG CAP PO SCH (08:30)
[2021-12-10] MEDS: CALCIUM ACETATE 667 MG CAPSULE (FP) PO SCH ×3 (08:30→17:19)
[2021-12-10] MEDS: CALCIUM 500MG/VIT-D 200 UNITS COMBO TABLET (FP) PO SCH ×3 (09:56→21:06)
[2021-12-10] MEDS: PANTOPRAZOLE 40 MG TABLET PO SCH ×3 (09:56→21:06)
[2021-12-10] MEDS: NIFEdipine E.R. 30 MG TABLET PO SCH (09:56)
[2021-12-10] MEDS: METOPROLOL TARTRATE 25 MG TABLET (FP) PO SCH ×3 (09:56→21:06)
[2021-12-10] MEDS: FERROUS SO4 325 MG TABLET (FP) PO SCH ×3 (09:56→21:06)
[2021-12-10] MEDS: OLANZapine 5 MG TABLET PO SCH ×3 (09:56→21:06)
[2021-12-10] MEDS: COLLAGENASE CLOSTRIDIUM HIST. 30 GRAMS TUBE TP SCH (09:59)
[2021-12-10 10:34] LABS: BASO % 1.1 % (0-2.0); EOS % 2.8 % (0-4.5); HEMATOCRIT 27.1 % (35.4-49); HEMOGLOBIN 9.1 GM/dL (11.7-16.9); MCH 31.6 pg (25.7-33.7); MCHC 33.4 g/dl (32.0-35.9); MEAN CELL VOLUME 94.5 fl (80-96); MEAN PLT VOLUME 9.2 fl (7.5-11.1); MONO % 5.6 % (3.8-10.2); NEUT % 82.5 % (42.8-82.8); PLATELET COUNT 154 10^3/uL (134-434); RBC 2.87 M/mm3 (4.00-5.60); RDW 18.9 % (11.9-15.9); WHITE BLOOD COUNT 7.3 K/mm3 (4.0-10.0)
[2021-12-10 10:36] LABS: ALBUMIN 2.2 g/dl (3.4-5.0); CALCIUM 7.7 mg/dL (8.5-10.1); MAGNESIUM 1.9 mg/dL (1.8-2.4)
[2021-12-10 10:37] LABS: BLOOD UREA NITROGEN 44.2 mg/dL (7-18)
[2021-12-10 10:39] LABS: CREATININE 5.1 mg/dL (0.55-1.3)
[2021-12-10 10:40] LABS: PHOSPHOROUS 2.2 mg/dL (2.5-4.9)
[2021-12-10 10:41] LABS: BILIRUBIN,TOTAL 0.5 mg/dL (0.2-1); TOT PROT 5.8 g/dl (6.4-8.2)
[2021-12-11] MEDS: SODIUM BICARBONATE 650 MG TABLET PO SCH ×3 (06:49→21:27)
[2021-12-11 09:13] LABS: HEMATOCRIT 23.2 % (35.4-49); HEMOGLOBIN 7.7 GM/dL (11.7-16.9); MCH 31.7 pg (25.7-33.7); MCHC 33.2 g/dl (32.0-35.9); MEAN CELL VOLUME 95.5 fl (80-96); MEAN PLT VOLUME 9.1 fl (7.5-11.1); PLATELET COUNT 179 10^3/uL (134-434); RBC 2.43 M/mm3 (4.00-5.60); RDW 18.2 % (11.9-15.9); WHITE BLOOD COUNT 6.9 K/mm3 (4.0-10.0)
[2021-12-11 09:31] LABS: CALCIUM 7.6 mg/dL (8.5-10.1)
[2021-12-11 09:32] LABS: BLOOD UREA NITROGEN 48.3 mg/dL (7-18)
[2021-12-11 09:35] LABS: CREATININE 5.7 mg/dL (0.55-1.3)
[2021-12-11] MEDS: TAMSULOSIN HCL 0.4 MG CAP PO SCH ×2 (09:41→12:22)
[2021-12-11] MEDS: CALCIUM ACETATE 667 MG CAPSULE (FP) PO SCH ×3 (09:41→16:53)
[2021-12-11] MEDS: FERROUS SO4 325 MG TABLET (FP) PO SCH ×2 (09:41→21:26)
[2021-12-11] MEDS: PANTOPRAZOLE 40 MG TABLET PO SCH ×2 (09:42→21:29)
[2021-12-11] MEDS: CALCIUM 500MG/VIT-D 200 UNITS COMBO TABLET (FP) PO SCH ×2 (09:42→21:27)
[2021-12-11] MEDS: NIFEdipine E.R. 30 MG TABLET PO SCH ×2 (09:42→15:46)
[2021-12-11] MEDS: METOPROLOL TARTRATE 25 MG TABLET (FP) PO SCH ×2 (09:42→21:27)
[2021-12-11] MEDS: OLANZapine 5 MG TABLET PO SCH ×2 (09:43→21:26)
[2021-12-11] MEDS: VANCOMYCIN 1 GM/200 ML PREMIX BAG IVPB SCH (10:30)
[2021-12-11] MEDS ORDERED: EPOETIN ALFA-EPBX 10,000 UNIT/ML VIAL IVPUSH ONE (12:00)
[2021-12-11] MEDS ORDERED: SODIUM CHLORIDE 250 ML IV PRN (12:00)
[2021-12-11] MEDS: COLLAGENASE CLOSTRIDIUM HIST. 30 GRAMS TUBE TP SCH (12:10)
[2021-12-12] MEDS: SODIUM BICARBONATE 650 MG TABLET PO SCH ×3 (05:56→21:50)
[2021-12-12] MEDS: TAMSULOSIN HCL 0.4 MG CAP PO SCH (08:22)
[2021-12-12] MEDS: CALCIUM ACETATE 667 MG CAPSULE (FP) PO SCH ×3 (08:22→17:21)
[2021-12-12] MEDS: FERROUS SO4 325 MG TABLET (FP) PO SCH ×2 (09:07→21:46)
[2021-12-12] MEDS: METOPROLOL TARTRATE 25 MG TABLET (FP) PO SCH ×2 (09:08→21:47)
[2021-12-12] MEDS: NIFEdipine E.R. 30 MG TABLET PO SCH (09:08)
[2021-12-12] MEDS: CALCIUM 500MG/VIT-D 200 UNITS COMBO TABLET (FP) PO SCH ×2 (09:08→21:49)
[2021-12-12] MEDS: OLANZapine 5 MG TABLET PO SCH ×2 (09:08→21:50)
[2021-12-12] MEDS: PANTOPRAZOLE 40 MG TABLET PO SCH ×2 (09:09→21:50)
[2021-12-12] MEDS: COLLAGENASE CLOSTRIDIUM HIST. 30 GRAMS TUBE TP SCH (09:09)
[2021-12-12 09:18] LABS: HEMATOCRIT 23.2 % (35.4-49); HEMOGLOBIN 7.8 GM/dL (11.7-16.9); MCH 31.5 pg (25.7-33.7); MCHC 33.7 g/dl (32.0-35.9); MEAN CELL VOLUME 93.3 fl (80-96); MEAN PLT VOLUME 8.8 fl (7.5-11.1); PLATELET COUNT 155 10^3/uL (134-434); RBC 2.48 M/mm3 (4.00-5.60); RDW 18.3 % (11.9-15.9); WHITE BLOOD COUNT 7.5 K/mm3 (4.0-10.0)
[2021-12-12 09:57] LABS: ALBUMIN 2.2 g/dl (3.4-5.0); BLOOD UREA NITROGEN 32.1 mg/dL (7-18); CALCIUM 7.7 mg/dL (8.5-10.1)
[2021-12-12 09:58] LABS: MAGNESIUM 1.7 mg/dL (1.8-2.4)
[2021-12-12 10:00] LABS: CREATININE 4.4 mg/dL (0.55-1.3)
[2021-12-12 10:01] LABS: TOT PROT 5.6 g/dl (6.4-8.2)
[2021-12-12 10:02] LABS: BILIRUBIN,TOTAL 0.4 mg/dL (0.2-1)
[2021-12-12] MEDS ORDERED: MAGNESIUM SULF 50% (8.12 MEQ/2 ML-1 GM VIAL) IVPB ONE (15:07)
[2021-12-13] MEDS: SODIUM BICARBONATE 650 MG TABLET PO SCH ×2 (06:35→12:52)
[2021-12-13 08:36] LABS: HEMATOCRIT 23.1 % (35.4-49); HEMOGLOBIN 7.9 GM/dL (11.7-16.9); MCH 32.1 pg (25.7-33.7); MCHC 34.3 g/dl (32.0-35.9); MEAN CELL VOLUME 93.6 fl (80-96); MEAN PLT VOLUME 8.3 fl (7.5-11.1); PLATELET COUNT 151 10^3/uL (134-434); RBC 2.47 M/mm3 (4.00-5.60); RDW 17.5 % (11.9-15.9); WHITE BLOOD COUNT 7.6 K/mm3 (4.0-10.0)
[2021-12-13 09:11] LABS: ALBUMIN 2.3 g/dl (3.4-5.0); CALCIUM 7.7 mg/dL (8.5-10.1)
[2021-12-13 09:12] LABS: BLOOD UREA NITROGEN 39.6 mg/dL (7-18)
[2021-12-13 09:14] LABS: PHOSPHOROUS 2.2 mg/dL (2.5-4.9)
[2021-12-13 09:16] LABS: BILIRUBIN,TOTAL 0.5 mg/dL (0.2-1); TOT PROT 5.8 g/dl (6.4-8.2)
[2021-12-13] MEDS: CALCIUM 500MG/VIT-D 200 UNITS COMBO TABLET (FP) PO SCH ×2 (09:29→21:37)
[2021-12-13] MEDS: CALCIUM ACETATE 667 MG CAPSULE (FP) PO SCH ×3 (09:29→17:37)
[2021-12-13] MEDS: FERROUS SO4 325 MG TABLET (FP) PO SCH ×2 (09:29→21:37)
[2021-12-13] MEDS: OLANZapine 5 MG TABLET PO SCH ×2 (09:29→21:37)
[2021-12-13] MEDS: TAMSULOSIN HCL 0.4 MG CAP PO SCH (09:29)
[2021-12-13] MEDS: PANTOPRAZOLE 40 MG TABLET PO SCH ×2 (09:30→21:37)
[2021-12-13] MEDS: VANCOMYCIN 1 GM/200 ML PREMIX BAG IVPB SCH ×2 (09:30→15:28)
[2021-12-13] MEDS: METOPROLOL TARTRATE 25 MG TABLET (FP) PO SCH ×2 (09:34→21:37)
[2021-12-13] MEDS: NIFEdipine E.R. 30 MG TABLET PO SCH (09:34)
[2021-12-13] MEDS: COLLAGENASE CLOSTRIDIUM HIST. 30 GRAMS TUBE TP SCH (12:38)
[2021-12-13] MEDS ORDERED: SODIUM CHLORIDE 250 ML IV PRN (14:00)
[2021-12-13] MEDS ORDERED: EPOETIN ALFA-EPBX 10,000 UNIT/ML VIAL SQ ONE (14:00)
[2021-12-13] MEDS: ACETAMINOPHEN 325 MG TABLET (FP) PO PRN (21:38)
[2021-12-14] MEDS: TAMSULOSIN HCL 0.4 MG CAP PO SCH (08:44)
[2021-12-14] MEDS: CALCIUM ACETATE 667 MG CAPSULE (FP) PO SCH ×3 (08:44→16:49)
[2021-12-14 09:03] LABS: HEMATOCRIT 25.6 % (35.4-49); HEMOGLOBIN 8.8 GM/dL (11.7-16.9); MCH 32.1 pg (25.7-33.7); MCHC 34.3 g/dl (32.0-35.9); MEAN CELL VOLUME 93.7 fl (80-96); MEAN PLT VOLUME 8.2 fl (7.5-11.1); PLATELET COUNT 132 10^3/uL (134-434); RBC 2.74 M/mm3 (4.00-5.60); RDW 18.2 % (11.9-15.9); WHITE BLOOD COUNT 8.6 K/mm3 (4.0-10.0)
[2021-12-14 09:35] LABS: CALCIUM 7.8 mg/dL (8.5-10.1)
[2021-12-14 09:36] LABS: ALBUMIN 2.4 g/dl (3.4-5.0); BLOOD UREA NITROGEN 31.5 mg/dL (7-18)
[2021-12-14] MEDS: PANTOPRAZOLE 40 MG TABLET PO SCH ×2 (09:40→22:02)
[2021-12-14] MEDS: CALCIUM 500MG/VIT-D 200 UNITS COMBO TABLET (FP) PO SCH ×2 (09:40→22:02)
[2021-12-14] MEDS: FERROUS SO4 325 MG TABLET (FP) PO SCH ×2 (09:40→22:02)
[2021-12-14] MEDS: OLANZapine 5 MG TABLET PO SCH ×2 (09:40→22:02)
[2021-12-14] MEDS: METOPROLOL TARTRATE 25 MG TABLET (FP) PO SCH ×2 (09:40→22:02)
[2021-12-14] MEDS: NIFEdipine E.R. 30 MG TABLET PO SCH (09:40)
[2021-12-14] MEDS: COLLAGENASE CLOSTRIDIUM HIST. 30 GRAMS TUBE TP SCH (09:40)
[2021-12-14 09:46] LABS: BILIRUBIN,TOTAL 0.4 mg/dL (0.2-1); CREATININE 4.1 mg/dL (0.55-1.3); PHOSPHOROUS 2.1 mg/dL (2.5-4.9); TOT PROT 6.2 g/dl (6.4-8.2)
[2021-12-14 17:06] LABS: EPI CELLS 10 /uL (0-25.1); HYALINE CASTS 1 /uL (0-3.1); URINE APPEARANCE CLEAR; URINE BACTERIA 131 /uL (0-1359); URINE BILIRUBIN NEGATIVE (NEGATIVE); URINE COLOR YELLOW; URINE GLUCOSE (UA) TRACE (NEGATIVE); URINE KETONE NEGATIVE (NEGATIVE); URINE LEUK ESTERASE NEGATIVE (NEGATIVE); URINE NITRITE NEGATIVE (NEGATIVE); URINE PROTEIN 3+ (NEGATIVE); URINE RBC 7 /uL (0-23.9); URINE UROBILINOGEN 0.2 mg/dL (0.2-1.0); URINE WBC 9 /uL (0-25.8)
[2021-12-15 09:54] LABS: CALCIUM 7.7 mg/dL (8.5-10.1)
[2021-12-15 09:55] LABS: BLOOD UREA NITROGEN 42.2 mg/dL (7-18); MAGNESIUM 2.1 mg/dL (1.8-2.4)
[2021-12-15 09:58] LABS: CREATININE 4.9 mg/dL (0.55-1.3); PHOSPHOROUS 2.4 mg/dL (2.5-4.9)
[2021-12-15] MEDS: TAMSULOSIN HCL 0.4 MG CAP PO SCH (10:02)
[2021-12-15] MEDS: PANTOPRAZOLE 40 MG TABLET PO SCH ×2 (10:02→22:45)
[2021-12-15] MEDS: CALCIUM ACETATE 667 MG CAPSULE (FP) PO SCH ×3 (10:02→18:35)
[2021-12-15] MEDS: CALCIUM 500MG/VIT-D 200 UNITS COMBO TABLET (FP) PO SCH ×2 (10:03→22:45)
[2021-12-15] MEDS: FERROUS SO4 325 MG TABLET (FP) PO SCH ×2 (10:03→22:45)
[2021-12-15] MEDS: METOPROLOL TARTRATE 25 MG TABLET (FP) PO SCH ×2 (10:03→22:45)
[2021-12-15] MEDS: OLANZapine 5 MG TABLET PO SCH ×2 (10:03→22:45)
[2021-12-15] MEDS: NIFEdipine E.R. 30 MG TABLET PO SCH (10:04)
[2021-12-15 10:13] LABS: HEMATOCRIT 24.6 % (35.4-49); HEMOGLOBIN 8.3 GM/dL (11.7-16.9); MCH 30.3 pg (25.7-33.7); MCHC 33.7 g/dl (32.0-35.9); MEAN PLT VOLUME 8.8 fl (7.5-11.1); PLATELET COUNT 150 10^3/uL (134-434); RBC 2.74 M/mm3 (4.00-5.60); RDW 17.7 % (11.9-15.9)
[2021-12-15] MEDS: COLLAGENASE CLOSTRIDIUM HIST. 30 GRAMS TUBE TP SCH (10:51)
[2021-12-15] MEDS ORDERED: SODIUM CHLORIDE 250 ML IV PRN (13:00)
[2021-12-15] MEDS ORDERED: EPOETIN ALFA-EPBX 10,000 UNIT/ML VIAL SQ ONE (14:06)
[2021-12-15] MEDS: VANCOMYCIN 1 GM/200 ML PREMIX BAG IVPB SCH (15:40)
[2021-12-16] MEDS: NIFEdipine E.R. 30 MG TABLET PO SCH (10:17)
[2021-12-16] MEDS: FERROUS SO4 325 MG TABLET (FP) PO SCH ×2 (10:17→21:36)
[2021-12-16] MEDS: METOPROLOL TARTRATE 25 MG TABLET (FP) PO SCH ×2 (10:17→21:36)
[2021-12-16] MEDS: PANTOPRAZOLE 40 MG TABLET PO SCH ×2 (10:17→21:36)
[2021-12-16] MEDS: CALCIUM 500MG/VIT-D 200 UNITS COMBO TABLET (FP) PO SCH ×2 (10:17→21:36)
[2021-12-16] MEDS: OLANZapine 5 MG TABLET PO SCH ×2 (10:18→21:36)
[2021-12-16] MEDS: TAMSULOSIN HCL 0.4 MG CAP PO SCH (10:18)
[2021-12-16] MEDS: CALCIUM ACETATE 667 MG CAPSULE (FP) PO SCH ×3 (10:18→16:54)
[2021-12-16 11:32] LABS: HEMATOCRIT 27.4 % (35.4-49); HEMOGLOBIN 9.2 GM/dL (11.7-16.9); MCH 30.5 pg (25.7-33.7); MCHC 33.5 g/dl (32.0-35.9); MEAN CELL VOLUME 91.2 fl (80-96); MEAN PLT VOLUME 9.1 fl (7.5-11.1); PLATELET COUNT 133 10^3/uL (134-434); RBC 3.01 M/mm3 (4.00-5.60); RDW 17.9 % (11.9-15.9); WHITE BLOOD COUNT 9.3 K/mm3 (4.0-10.0)
[2021-12-16 11:48] LABS: BLOOD UREA NITROGEN 29.6 mg/dL (7-18); CALCIUM 7.6 mg/dL (8.5-10.1)
[2021-12-16 11:49] LABS: ALBUMIN 2.3 g/dl (3.4-5.0); MAGNESIUM 1.9 mg/dL (1.8-2.4)
[2021-12-16 11:52] LABS: CREATININE 4.2 mg/dL (0.55-1.3); PHOSPHOROUS 1.6 mg/dL (2.5-4.9)
[2021-12-16 11:53] LABS: BILIRUBIN,TOTAL 0.4 mg/dL (0.2-1); TOT PROT 5.8 g/dl (6.4-8.2)
[2021-12-16] MEDS ORDERED: POTASSIUM CHLORIDE TABS 20 MEQ TABLET.ER (FP) PO ONE (12:29)
[2021-12-17] MEDS: CALCIUM ACETATE 667 MG CAPSULE (FP) PO SCH ×3 (08:55→16:54)
[2021-12-17] MEDS: TAMSULOSIN HCL 0.4 MG CAP PO SCH (08:56)
[2021-12-17] MEDS: CALCIUM 500MG/VIT-D 200 UNITS COMBO TABLET (FP) PO SCH ×2 (09:03→21:44)
[2021-12-17] MEDS: PANTOPRAZOLE 40 MG TABLET PO SCH ×2 (09:03→21:44)
[2021-12-17] MEDS: FERROUS SO4 325 MG TABLET (FP) PO SCH ×2 (09:03→21:45)
[2021-12-17] MEDS: OLANZapine 5 MG TABLET PO SCH ×2 (09:03→21:45)
[2021-12-17] MEDS: NIFEdipine E.R. 30 MG TABLET PO SCH (09:04)
[2021-12-17] MEDS: METOPROLOL TARTRATE 25 MG TABLET (FP) PO SCH ×2 (09:04→21:44)
[2021-12-17 09:35] LABS: BASO % 1.2 % (0-2.0); HEMATOCRIT 25.9 % (35.4-49); HEMOGLOBIN 8.6 GM/dL (11.7-16.9); LYMPH % 8.7 % (8-40); MCH 31.2 pg (25.7-33.7); MCHC 33.3 g/dl (32.0-35.9); MEAN CELL VOLUME 93.7 fl (80-96); MEAN PLT VOLUME 9.1 fl (7.5-11.1); MONO % 5.4 % (3.8-10.2); NEUT % 82.7 % (42.8-82.8); PLATELET COUNT 138 10^3/uL (134-434); RBC 2.76 M/mm3 (4.00-5.60); RDW 17.2 % (11.9-15.9); WHITE BLOOD COUNT 10.1 K/mm3 (4.0-10.0)
[2021-12-17 09:54] LABS: CALCIUM 7.6 mg/dL (8.5-10.1)
[2021-12-17 09:55] LABS: BLOOD UREA NITROGEN 37.2 mg/dL (7-18)
[2021-12-17 09:58] LABS: CREATININE 5.1 mg/dL (0.55-1.3)
[2021-12-18] MEDS: OLANZapine 5 MG TABLET PO SCH ×2 (09:23→21:05)
[2021-12-18] MEDS: PANTOPRAZOLE 40 MG TABLET PO SCH ×2 (09:23→21:05)
[2021-12-18] MEDS: CALCIUM ACETATE 667 MG CAPSULE (FP) PO SCH ×3 (09:23→19:09)
[2021-12-18] MEDS: NIFEdipine E.R. 30 MG TABLET PO SCH (09:23)
[2021-12-18] MEDS: TAMSULOSIN HCL 0.4 MG CAP PO SCH (09:23)
[2021-12-18] MEDS: CALCIUM 500MG/VIT-D 200 UNITS COMBO TABLET (FP) PO SCH ×2 (09:24→21:05)
[2021-12-18] MEDS: METOPROLOL TARTRATE 25 MG TABLET (FP) PO SCH ×2 (09:24→21:05)
[2021-12-18] MEDS: FERROUS SO4 325 MG TABLET (FP) PO SCH ×2 (09:24→21:05)
[2021-12-18 10:11] LABS: BLOOD UREA NITROGEN 46.1 mg/dL (7-18); CALCIUM 7.8 mg/dL (8.5-10.1)
[2021-12-18 10:12] LABS: ALBUMIN 2.4 g/dl (3.4-5.0)
[2021-12-18 10:14] LABS: CREATININE 5.9 mg/dL (0.55-1.3)
[2021-12-18 10:16] LABS: BILIRUBIN,TOTAL 0.5 mg/dL (0.2-1); TOT PROT 5.8 g/dl (6.4-8.2)
[2021-12-18] MEDS: VANCOMYCIN 1 GM/200 ML PREMIX BAG IVPB SCH (19:07)
[2021-12-19] MEDS: TAMSULOSIN HCL 0.4 MG CAP PO SCH (08:18)
[2021-12-19] MEDS: CALCIUM ACETATE 667 MG CAPSULE (FP) PO SCH ×3 (08:19→17:40)
[2021-12-19] MEDS ORDERED: SODIUM CHLORIDE 250 ML IV PRN (08:30)
[2021-12-19] MEDS ORDERED: EPOETIN ALFA-EPBX 10,000 UNIT/ML VIAL SQ ONE (09:00)
[2021-12-19] MEDS ORDERED: EPOETIN ALFA-EPBX 10,000 UNIT/ML VIAL IVPUSH ONE (10:00)
[2021-12-19 10:04] LABS: HEMATOCRIT 25.5 % (35.4-49); HEMOGLOBIN 8.3 GM/dL (11.7-16.9); MCH 29.4 pg (25.7-33.7); MCHC 32.7 g/dl (32.0-35.9); MEAN CELL VOLUME 90.1 fl (80-96); MEAN PLT VOLUME 8.7 fl (7.5-11.1); PLATELET COUNT 131 10^3/uL (134-434); RBC 2.83 M/mm3 (4.00-5.60); RDW 17.8 % (11.9-15.9); WHITE BLOOD COUNT 8.5 K/mm3 (4.0-10.0)
[2021-12-19 10:22] LABS: BLOOD UREA NITROGEN 46.5 mg/dL (7-18); CALCIUM 7.6 mg/dL (8.5-10.1)
[2021-12-19 10:26] LABS: CREATININE 5.6 mg/dL (0.55-1.3)
[2021-12-19] MEDS: VANCOMYCIN 1 GM/200 ML PREMIX BAG IVPB SCH (12:12)
[2021-12-19] MEDS: NIFEdipine E.R. 30 MG TABLET PO SCH (13:32)
[2021-12-19] MEDS: PANTOPRAZOLE 40 MG TABLET PO SCH ×2 (13:32→21:28)
[2021-12-19] MEDS: FERROUS SO4 325 MG TABLET (FP) PO SCH ×2 (13:32→21:21)
[2021-12-19] MEDS: METOPROLOL TARTRATE 25 MG TABLET (FP) PO SCH ×2 (13:32→21:22)
[2021-12-19] MEDS: OLANZapine 5 MG TABLET PO SCH ×2 (13:32→21:29)
[2021-12-19] MEDS: CALCIUM 500MG/VIT-D 200 UNITS COMBO TABLET (FP) PO SCH ×2 (13:32→21:28)
[2021-12-20] MEDS: NIFEdipine E.R. 30 MG TABLET PO SCH (10:03)
[2021-12-20] MEDS: METOPROLOL TARTRATE 25 MG TABLET (FP) PO SCH ×2 (10:03→21:46)
[2021-12-20] MEDS: PANTOPRAZOLE 40 MG TABLET PO SCH ×2 (10:03→21:46)
[2021-12-20] MEDS: CALCIUM ACETATE 667 MG CAPSULE (FP) PO SCH ×3 (10:03→16:54)
[2021-12-20] MEDS: TAMSULOSIN HCL 0.4 MG CAP PO SCH (10:03)
[2021-12-20] MEDS: CALCIUM 500MG/VIT-D 200 UNITS COMBO TABLET (FP) PO SCH ×2 (10:03→21:46)
[2021-12-20] MEDS: OLANZapine 5 MG TABLET PO SCH ×2 (10:03→21:46)
[2021-12-20] MEDS: FERROUS SO4 325 MG TABLET (FP) PO SCH ×2 (10:03→21:45)
[2021-12-21] MEDS: CALCIUM ACETATE 667 MG CAPSULE (FP) PO SCH ×3 (08:09→17:54)
[2021-12-21] MEDS: TAMSULOSIN HCL 0.4 MG CAP PO SCH (08:09)
[2021-12-21] MEDS ORDERED: SODIUM CHLORIDE 250 ML IV PRN (09:00)
[2021-12-21] MEDS ORDERED: EPOETIN ALFA-EPBX 10,000 UNIT/ML VIAL SQ ONE (09:00)
[2021-12-21 09:31] LABS: BASO % 1.3 % (0-2.0); EOS % 3.3 % (0-4.5); HEMATOCRIT 25.7 % (35.4-49); HEMOGLOBIN 8.3 GM/dL (11.7-16.9); MCH 29.6 pg (25.7-33.7); MCHC 32.5 g/dl (32.0-35.9); MEAN CELL VOLUME 91.1 fl (80-96); MEAN PLT VOLUME 9.3 fl (7.5-11.1); MONO % 5.3 % (3.8-10.2); NEUT % 82.1 % (42.8-82.8); PLATELET COUNT 113 10^3/uL (134-434); RBC 2.82 M/mm3 (4.00-5.60); RDW 17.1 % (11.9-15.9); WHITE BLOOD COUNT 7.3 K/mm3 (4.0-10.0)
[2021-12-21 09:57] LABS: CALCIUM 7.5 mg/dL (8.5-10.1)
[2021-12-21 09:58] LABS: ALBUMIN 2.2 g/dl (3.4-5.0); BLOOD UREA NITROGEN 44.8 mg/dL (7-18); MAGNESIUM 1.9 mg/dL (1.8-2.4)
[2021-12-21 10:01] LABS: CREATININE 5.5 mg/dL (0.55-1.3); PHOSPHOROUS 3.1 mg/dL (2.5-4.9)
[2021-12-21 10:03] LABS: BILIRUBIN,TOTAL 0.4 mg/dL (0.2-1); TOT PROT 5.5 g/dl (6.4-8.2)
[2021-12-21] MEDS: VANCOMYCIN 1 GM/200 ML PREMIX BAG IVPB SCH (12:40)
[2021-12-21] MEDS: CALCIUM 500MG/VIT-D 200 UNITS COMBO TABLET (FP) PO SCH ×2 (12:45→21:19)
[2021-12-21] MEDS: NIFEdipine E.R. 30 MG TABLET PO SCH (12:45)
[2021-12-21] MEDS: FERROUS SO4 325 MG TABLET (FP) PO SCH ×2 (12:45→21:18)
[2021-12-21] MEDS: PANTOPRAZOLE 40 MG TABLET PO SCH ×2 (12:45→21:20)
[2021-12-21] MEDS: METOPROLOL TARTRATE 25 MG TABLET (FP) PO SCH ×2 (12:46→21:19)
[2021-12-21] MEDS: OLANZapine 5 MG TABLET PO SCH ×2 (12:50→21:20)
[2021-12-22] MEDS: CALCIUM 500MG/VIT-D 200 UNITS COMBO TABLET (FP) PO SCH ×2 (09:45→21:15)
[2021-12-22] MEDS: NIFEdipine E.R. 30 MG TABLET PO SCH (09:46)
[2021-12-22] MEDS: CALCIUM ACETATE 667 MG CAPSULE (FP) PO SCH ×3 (09:46→17:29)
[2021-12-22] MEDS: TAMSULOSIN HCL 0.4 MG CAP PO SCH (09:46)
[2021-12-22] MEDS: PANTOPRAZOLE 40 MG TABLET PO SCH ×2 (09:46→21:15)
[2021-12-22] MEDS: METOPROLOL TARTRATE 25 MG TABLET (FP) PO SCH ×2 (09:46→21:14)
[2021-12-22] MEDS: FERROUS SO4 325 MG TABLET (FP) PO SCH ×2 (09:46→21:13)
[2021-12-22] MEDS ORDERED: SODIUM CHLORIDE 250 ML IV PRN (13:49)
[2021-12-22] MEDS: OLANZapine 5 MG TABLET PO SCH (21:16)
[2021-12-23] MEDS: CALCIUM 500MG/VIT-D 200 UNITS COMBO TABLET (FP) PO SCH ×2 (09:10→21:40)
[2021-12-23] MEDS: NIFEdipine E.R. 30 MG TABLET PO SCH (09:10)
[2021-12-23] MEDS: FERROUS SO4 325 MG TABLET (FP) PO SCH ×2 (09:10→21:40)
[2021-12-23] MEDS: CALCIUM ACETATE 667 MG CAPSULE (FP) PO SCH ×3 (09:10→17:30)
[2021-12-23] MEDS: TAMSULOSIN HCL 0.4 MG CAP PO SCH (09:10)
[2021-12-23] MEDS: PANTOPRAZOLE 40 MG TABLET PO SCH ×2 (09:11→21:40)
[2021-12-23] MEDS: METOPROLOL TARTRATE 25 MG TABLET (FP) PO SCH ×2 (09:11→21:40)
[2021-12-23] MEDS ORDERED: EPOETIN ALFA-EPBX 10,000 UNIT/ML VIAL SQ ONE (15:00)
[2021-12-23 15:30] LABS: HEMATOCRIT 25.4 % (35.4-49); HEMOGLOBIN 8.2 GM/dL (11.7-16.9); MCH 28.9 pg (25.7-33.7); MCHC 32.3 g/dl (32.0-35.9); MEAN CELL VOLUME 89.5 fl (80-96); MEAN PLT VOLUME 9.7 fl (7.5-11.1); PLATELET COUNT 98 10^3/uL (134-434); RBC 2.83 M/mm3 (4.00-5.60); RDW 17.4 % (11.9-15.9); WHITE BLOOD COUNT 7.6 K/mm3 (4.0-10.0)
[2021-12-23 15:51] LABS: CALCIUM 7.3 mg/dL (8.5-10.1)
[2021-12-23 15:52] LABS: BLOOD UREA NITROGEN 29.8 mg/dL (7-18)
[2021-12-23 15:54] LABS: CREATININE 4.6 mg/dL (0.55-1.3)
[2021-12-23] MEDS: OLANZapine 5 MG TABLET PO SCH (21:40)
[2021-12-24] MEDS: CALCIUM 500MG/VIT-D 200 UNITS COMBO TABLET (FP) PO SCH ×2 (09:34→21:45)
[2021-12-24] MEDS: METOPROLOL TARTRATE 25 MG TABLET (FP) PO SCH ×2 (09:35→21:45)
[2021-12-24] MEDS: CALCIUM ACETATE 667 MG CAPSULE (FP) PO SCH ×3 (09:35→17:39)
[2021-12-24] MEDS: FERROUS SO4 325 MG TABLET (FP) PO SCH ×2 (09:35→21:45)
[2021-12-24] MEDS: PANTOPRAZOLE 40 MG TABLET PO SCH ×2 (09:35→21:45)
[2021-12-24] MEDS: TAMSULOSIN HCL 0.4 MG CAP PO SCH (09:35)
[2021-12-24] MEDS: NIFEdipine E.R. 30 MG TABLET PO SCH (09:35)
[2021-12-24] MEDS: OLANZapine 5 MG TABLET PO SCH (21:45)
[2021-12-25] MEDS: CALCIUM ACETATE 667 MG CAPSULE (FP) PO SCH ×3 (08:18→17:26)
[2021-12-25] MEDS: TAMSULOSIN HCL 0.4 MG CAP PO SCH (08:19)
[2021-12-25] MEDS: CALCIUM 500MG/VIT-D 200 UNITS COMBO TABLET (FP) PO SCH ×2 (10:07→21:17)
[2021-12-25] MEDS: FERROUS SO4 325 MG TABLET (FP) PO SCH ×2 (10:07→21:16)
[2021-12-25] MEDS: PANTOPRAZOLE 40 MG TABLET PO SCH ×2 (10:07→21:18)
[2021-12-25] MEDS: METOPROLOL TARTRATE 25 MG TABLET (FP) PO SCH ×2 (10:07→21:17)
[2021-12-25] MEDS: NIFEdipine E.R. 30 MG TABLET PO SCH (10:09)
[2021-12-25] MEDS ORDERED: PHENYLEPHRINE HCL/COCOA BUTTER SUPPOSITORY RC PRN (10:33)
[2021-12-25] MEDS ORDERED: PHENYLEPH/MINERAL OIL/PETROLAT 28 GM OINTMENT RC PRN (10:42)
[2021-12-25] MEDS: OLANZapine 5 MG TABLET PO SCH (21:18)
[2021-12-26] MEDS: CALCIUM ACETATE 667 MG CAPSULE (FP) PO SCH ×3 (08:24→18:05)
[2021-12-26] MEDS: TAMSULOSIN HCL 0.4 MG CAP PO SCH (08:24)
[2021-12-26] MEDS: CALCIUM 500MG/VIT-D 200 UNITS COMBO TABLET (FP) PO SCH ×2 (09:45→21:27)
[2021-12-26] MEDS: PANTOPRAZOLE 40 MG TABLET PO SCH ×2 (09:45→21:27)
[2021-12-26] MEDS: FERROUS SO4 325 MG TABLET (FP) PO SCH ×2 (09:45→21:26)
[2021-12-26] MEDS: NIFEdipine E.R. 30 MG TABLET PO SCH (09:46)
[2021-12-26] MEDS: METOPROLOL TARTRATE 25 MG TABLET (FP) PO SCH ×2 (09:46→21:26)
[2021-12-26 12:52] LABS: HEMOGLOBIN 9.1 GM/dL (11.7-16.9); MCH 28.8 pg (25.7-33.7); MCHC 31.4 g/dl (32.0-35.9); MEAN CELL VOLUME 91.7 fl (80-96); MEAN PLT VOLUME 8.9 fl (7.5-11.1); PLATELET COUNT 105 10^3/uL (134-434); RBC 3.16 M/mm3 (4.00-5.60); RDW 18.2 % (11.9-15.9); WHITE BLOOD COUNT 6.7 K/mm3 (4.0-10.0)
[2021-12-26 13:58] LABS: BLOOD UREA NITROGEN 46.2 mg/dL (7-18); CALCIUM 7.7 mg/dL (8.5-10.1)
[2021-12-26 13:59] LABS: ALBUMIN 2.2 g/dl (3.4-5.0)
[2021-12-26 14:04] LABS: BILIRUBIN,TOTAL 0.3 mg/dL (0.2-1); TOT PROT 5.6 g/dl (6.4-8.2)
[2021-12-26] MEDS ORDERED: EPOETIN ALFA-EPBX 10,000 UNIT/ML VIAL SQ ONE (16:00)
[2021-12-26] MEDS ORDERED: SODIUM CHLORIDE 250 ML IV PRN (16:00)
[2021-12-26] MEDS: OLANZapine 5 MG TABLET PO SCH (21:28)
[2021-12-27] MEDS: PANTOPRAZOLE 40 MG TABLET PO SCH ×2 (10:19→22:25)
[2021-12-27] MEDS: CALCIUM 500MG/VIT-D 200 UNITS COMBO TABLET (FP) PO SCH ×2 (10:19→22:24)
[2021-12-27] MEDS: NIFEdipine E.R. 30 MG TABLET PO SCH (10:19)
[2021-12-27] MEDS: CALCIUM ACETATE 667 MG CAPSULE (FP) PO SCH ×3 (10:20→17:17)
[2021-12-27] MEDS: METOPROLOL TARTRATE 25 MG TABLET (FP) PO SCH ×2 (10:20→22:25)
[2021-12-27] MEDS: FERROUS SO4 325 MG TABLET (FP) PO SCH ×2 (10:26→22:25)
[2021-12-27] MEDS: TAMSULOSIN HCL 0.4 MG CAP PO SCH (10:26)
[2021-12-27] MEDS ORDERED: SODIUM CHLORIDE 250 ML IV PRN (11:36)
[2021-12-27] MEDS: OLANZapine 5 MG TABLET PO SCH (22:25)
[2021-12-28] MEDS: PANTOPRAZOLE 40 MG TABLET PO SCH ×2 (10:19→21:25)
[2021-12-28] MEDS: FERROUS SO4 325 MG TABLET (FP) PO SCH ×2 (10:20→21:22)
[2021-12-28] MEDS: CALCIUM ACETATE 667 MG CAPSULE (FP) PO SCH ×3 (10:20→17:30)
[2021-12-28] MEDS: TAMSULOSIN HCL 0.4 MG CAP PO SCH (10:20)
[2021-12-28] MEDS: CALCIUM 500MG/VIT-D 200 UNITS COMBO TABLET (FP) PO SCH ×2 (10:20→21:23)
[2021-12-28] MEDS ORDERED: EPOETIN ALFA-EPBX 10,000 UNIT/ML VIAL IVPUSH ONE (11:36)
[2021-12-28 13:54] LABS: MCH 28.9 pg (25.7-33.7); MCHC 31.9 g/dl (32.0-35.9); MEAN CELL VOLUME 90.8 fl (80-96); MEAN PLT VOLUME 9.8 fl (7.5-11.1); PLATELET COUNT 96 10^3/uL (134-434); RBC 2.75 M/mm3 (4.00-5.60); RDW 17.8 % (11.9-15.9); WHITE BLOOD COUNT 6.1 K/mm3 (4.0-10.0)
[2021-12-28 14:11] LABS: CALCIUM 7.7 mg/dL (8.5-10.1)
[2021-12-28 14:12] LABS: BLOOD UREA NITROGEN 40.1 mg/dL (7-18)
[2021-12-28 14:15] LABS: CREATININE 5.4 mg/dL (0.55-1.3)
[2021-12-28] MEDS: NIFEdipine E.R. 30 MG TABLET PO SCH (16:21)
[2021-12-28] MEDS: METOPROLOL TARTRATE 25 MG TABLET (FP) PO SCH ×2 (16:21→21:24)
[2021-12-28] MEDS: OLANZapine 5 MG TABLET PO SCH (21:25)
[2021-12-29] MEDS: METOPROLOL TARTRATE 25 MG TABLET (FP) PO SCH ×2 (10:00→22:28)
[2021-12-29] MEDS: FERROUS SO4 325 MG TABLET (FP) PO SCH ×2 (10:00→22:29)
[2021-12-29] MEDS: TAMSULOSIN HCL 0.4 MG CAP PO SCH (10:00)
[2021-12-29] MEDS: NIFEdipine E.R. 30 MG TABLET PO SCH (10:01)
[2021-12-29] MEDS: PANTOPRAZOLE 40 MG TABLET PO SCH ×2 (10:01→22:29)
[2021-12-29] MEDS: CALCIUM ACETATE 667 MG CAPSULE (FP) PO SCH ×3 (10:01→17:09)
[2021-12-29] MEDS: CALCIUM 500MG/VIT-D 200 UNITS COMBO TABLET (FP) PO SCH ×2 (10:01→22:25)
[2021-12-29] MEDS: BACITRACIN 15 GM TUBE TOPICAL OINTMENT TP SCH (12:07)
[2021-12-29] MEDS: OLANZapine 5 MG TABLET PO SCH (22:29)
[2021-12-30] MEDS ORDERED: SODIUM CHLORIDE 250 ML IV PRN (08:00)
[2021-12-30] MEDS: TAMSULOSIN HCL 0.4 MG CAP PO SCH ×2 (08:47→12:16)
[2021-12-30] MEDS: CALCIUM ACETATE 667 MG CAPSULE (FP) PO SCH ×3 (08:47→17:14)
[2021-12-30] MEDS ORDERED: EPOETIN ALFA-EPBX 4,000 UNIT/ML VIAL SQ ONE ×2 (09:15→15:21)
[2021-12-30 09:24] LABS: HEMATOCRIT 24.3 % (35.4-49); HEMOGLOBIN 7.8 GM/dL (11.7-16.9); MCHC 32.1 g/dl (32.0-35.9); MEAN CELL VOLUME 90.3 fl (80-96); MEAN PLT VOLUME 9.4 fl (7.5-11.1); PLATELET COUNT 94 10^3/uL (134-434); RBC 2.69 M/mm3 (4.00-5.60); RDW 17.7 % (11.9-15.9); WHITE BLOOD COUNT 6.2 K/mm3 (4.0-10.0)
[2021-12-30 09:45] LABS: CALCIUM 7.7 mg/dL (8.5-10.1)
[2021-12-30 09:46] LABS: BLOOD UREA NITROGEN 41.4 mg/dL (7-18)
[2021-12-30 09:49] LABS: CREATININE 5.1 mg/dL (0.55-1.3)
[2021-12-30] MEDS: BACITRACIN 15 GM TUBE TOPICAL OINTMENT TP SCH (09:54)
[2021-12-30] MEDS: METOPROLOL TARTRATE 25 MG TABLET (FP) PO SCH ×2 (09:55→21:20)
[2021-12-30] MEDS: FERROUS SO4 325 MG TABLET (FP) PO SCH ×2 (09:55→21:20)
[2021-12-30] MEDS: CALCIUM 500MG/VIT-D 200 UNITS COMBO TABLET (FP) PO SCH ×2 (09:55→21:20)
[2021-12-30] MEDS: PANTOPRAZOLE 40 MG TABLET PO SCH ×2 (09:55→21:20)
[2021-12-30] MEDS: NIFEdipine E.R. 30 MG TABLET PO SCH ×2 (09:55→12:17)
[2021-12-30] MEDS: OLANZapine 5 MG TABLET PO SCH (21:20)
[2021-12-31] MEDS: CALCIUM 500MG/VIT-D 200 UNITS COMBO TABLET (FP) PO SCH ×2 (09:10→21:14)
[2021-12-31] MEDS: CALCIUM ACETATE 667 MG CAPSULE (FP) PO SCH ×3 (09:10→17:30)
[2021-12-31] MEDS: NIFEdipine E.R. 30 MG TABLET PO SCH (09:10)
[2021-12-31] MEDS: PANTOPRAZOLE 40 MG TABLET PO SCH ×2 (09:11→21:13)
[2021-12-31] MEDS: METOPROLOL TARTRATE 25 MG TABLET (FP) PO SCH ×2 (09:11→21:13)
[2021-12-31] MEDS: TAMSULOSIN HCL 0.4 MG CAP PO SCH (09:12)
[2021-12-31] MEDS: BACITRACIN 15 GM TUBE TOPICAL OINTMENT TP SCH (09:12)
[2021-12-31] MEDS: FERROUS SO4 325 MG TABLET (FP) PO SCH ×2 (09:12→21:13)
[2021-12-31] MEDS ORDERED: FUROSEMIDE 40 MG/4 ML INJECTABLE VIAL IVPUSH ONE (12:15)
[2021-12-31] MEDS ORDERED: FUROSEMIDE 40 MG TABLET (FP) PO ONE (14:45)
[2021-12-31] MEDS: OLANZapine 5 MG TABLET PO SCH (21:13)
[2021-12-31] MEDS: ACETAMINOPHEN 325 MG TABLET (FP) PO PRN (21:13)
[2022-01-01 04:09] LABS: BASO % 1.1 % (0-2.0); EOS % 4.2 % (0-4.5); HEMATOCRIT 24.4 % (35.4-49); HEMOGLOBIN 7.8 GM/dL (11.7-16.9); LYMPH % 14.9 % (8-40); MCH 28.7 pg (25.7-33.7); MCHC 32.2 g/dl (32.0-35.9); MEAN CELL VOLUME 89.2 fl (80-96); MEAN PLT VOLUME 9.6 fl (7.5-11.1); MONO % 7.7 % (3.8-10.2); NEUT % 72.1 % (42.8-82.8); PLATELET COUNT 92 10^3/uL (134-434); RBC 2.73 M/mm3 (4.00-5.60); RDW 17.4 % (11.9-15.9)
[2022-01-01] MEDS: CALCIUM ACETATE 667 MG CAPSULE (FP) PO SCH ×3 (10:20→17:15)
[2022-01-01] MEDS: CALCIUM 500MG/VIT-D 200 UNITS COMBO TABLET (FP) PO SCH ×2 (10:20→21:22)
[2022-01-01] MEDS: PANTOPRAZOLE 40 MG TABLET PO SCH ×2 (10:20→21:21)
[2022-01-01] MEDS: FERROUS SO4 325 MG TABLET (FP) PO SCH ×2 (10:21→21:21)
[2022-01-01] MEDS: NIFEdipine E.R. 30 MG TABLET PO SCH (10:21)
[2022-01-01] MEDS: TAMSULOSIN HCL 0.4 MG CAP PO SCH (10:21)
[2022-01-01] MEDS: METOPROLOL TARTRATE 25 MG TABLET (FP) PO SCH ×2 (10:21→21:22)
[2022-01-01] MEDS: BACITRACIN 15 GM TUBE TOPICAL OINTMENT TP SCH (10:22)
[2022-01-01] MEDS: TORSEMIDE 20 MG TABLET (FP) PO SCH (12:34)
[2022-01-01] MEDS: OLANZapine 5 MG TABLET PO SCH (21:21)
[2022-01-02] MEDS ORDERED: HEPARIN NA (PORCINE) 5,000 UNITS/ML 1ML VIAL IVPUSH PRN ×2 (08:04)
[2022-01-02] MEDS ORDERED: HEPARIN NA (PORCINE) 5,000 UNITS/ML 1ML VIAL IVPUSH ONE (08:04)
[2022-01-02] MEDS ORDERED: HEPARIN INFUSION - 25,000 UNITS/500 ML INFUS.BAG IVPB SCH (08:15)
[2022-01-02] MEDS: CALCIUM ACETATE 667 MG CAPSULE (FP) PO SCH ×3 (08:53→18:13)
[2022-01-02] MEDS: TAMSULOSIN HCL 0.4 MG CAP PO SCH (08:53)
[2022-01-02] MEDS: FERROUS SO4 325 MG TABLET (FP) PO SCH ×2 (09:09→21:35)
[2022-01-02] MEDS: METOPROLOL TARTRATE 25 MG TABLET (FP) PO SCH ×2 (09:09→21:35)
[2022-01-02] MEDS: CALCIUM 500MG/VIT-D 200 UNITS COMBO TABLET (FP) PO SCH ×2 (09:10→21:35)
[2022-01-02] MEDS: PANTOPRAZOLE 40 MG TABLET PO SCH ×2 (09:10→21:35)
[2022-01-02] MEDS: NIFEdipine E.R. 30 MG TABLET PO SCH (09:10)
[2022-01-02] MEDS: TORSEMIDE 20 MG TABLET (FP) PO SCH (09:10)
[2022-01-02] MEDS: BACITRACIN 15 GM TUBE TOPICAL OINTMENT TP SCH (12:24)
[2022-01-02] MEDS ORDERED: SODIUM CHLORIDE 250 ML IV PRN (16:06)
[2022-01-02] MEDS: APIXABAN 2.5 MG TABLET PO SCH (21:35)
[2022-01-02] MEDS: OLANZapine 5 MG TABLET PO SCH (21:35)
[2022-01-03] MEDS: BACITRACIN 15 GM TUBE TOPICAL OINTMENT TP SCH (10:30)
[2022-01-03] MEDS: CALCIUM ACETATE 667 MG CAPSULE (FP) PO SCH ×3 (11:34→17:31)
[2022-01-03] MEDS: TAMSULOSIN HCL 0.4 MG CAP PO SCH (11:34)
[2022-01-03] MEDS: TORSEMIDE 20 MG TABLET (FP) PO SCH (11:34)
[2022-01-03] MEDS: FERROUS SO4 325 MG TABLET (FP) PO SCH ×2 (11:35→21:25)
[2022-01-03] MEDS: APIXABAN 2.5 MG TABLET PO SCH ×3 (11:35→21:25)
[2022-01-03] MEDS: METOPROLOL TARTRATE 25 MG TABLET (FP) PO SCH ×3 (11:35→22:09)
[2022-01-03] MEDS: CALCIUM 500MG/VIT-D 200 UNITS COMBO TABLET (FP) PO SCH ×2 (11:35→21:24)
[2022-01-03 11:36] LABS: HEMATOCRIT 29.5 % (35.4-49); HEMOGLOBIN 9.1 GM/dL (11.7-16.9); MCHC 30.7 g/dl (32.0-35.9); MEAN CELL VOLUME 90.9 fl (80-96); MEAN PLT VOLUME 9.6 fl (7.5-11.1); PLATELET COUNT 112 10^3/uL (134-434); RBC 3.24 M/mm3 (4.00-5.60); RDW 17.6 % (11.9-15.9); WHITE BLOOD COUNT 3.3 K/mm3 (4.0-10.0)
[2022-01-03] MEDS: NIFEdipine E.R. 30 MG TABLET PO SCH ×2 (11:36→16:26)
[2022-01-03] MEDS: PANTOPRAZOLE 40 MG TABLET PO SCH ×2 (11:36→21:25)
[2022-01-03 11:43] LABS: INR 1.12 (0.83-1.09); PROTHROMBIN TIME (PATIENT) 12.9 SEC (9.7-13.0)
[2022-01-03 11:46] LABS: ACTIVATED PTT 41.6 SECONDS (25.2-36.5)
[2022-01-03 11:56] LABS: CHLORIDE 112 mmol/L (98-107); SODIUM 145 mmol/L (136-145)
[2022-01-03 11:58] LABS: CALCIUM 7.8 mg/dL (8.5-10.1)
[2022-01-03 11:59] LABS: ALBUMIN 2.2 g/dl (3.4-5.0); ANION GAP 7 MMOL/L (8-16); CO2 25 mmol/L (21-32); GLUCOSE,RANDOM 83 mg/dL (74-106)
[2022-01-03 12:02] LABS: SGOT/AST 39 U/L (15-37); SGPT/ALT 30 U/L (13-61)
[2022-01-03 12:03] LABS: BILIRUBIN,TOTAL 0.3 mg/dL (0.2-1); TOT PROT 5.4 g/dl (6.4-8.2)
[2022-01-03 12:05] LABS: ALK PHOS 146 U/L (45-117)
[2022-01-03 12:08] LABS: BLOOD UREA NITROGEN 70.1 mg/dL (7-18); CREATININE 7.6 mg/dL (0.55-1.3)
[2022-01-03] MEDS ORDERED: EPOETIN ALFA-EPBX 10,000 UNIT/ML VIAL SQ ONE (16:06)
[2022-01-03] MEDS: OLANZapine 5 MG TABLET PO SCH (21:25)
[2022-01-04] MEDS ORDERED: LIDOCAINE HCL 1%, 10 MG/ML (20ML VIAL) ONE (08:37)
[2022-01-04] MEDS ORDERED: HEPARIN NA (PORCINE) 5,000 UNITS/ML 1ML VIAL ONE (09:03)
[2022-01-04] MEDS: CALCIUM ACETATE 667 MG CAPSULE (FP) PO SCH ×3 (09:11→18:09)
[2022-01-04] MEDS ORDERED: PROPOFOL 20 ML ONE (09:26)
[2022-01-04] MEDS ORDERED: ceFAZolin SODIUM 1 GM VIAL ONE (09:27)
[2022-01-04] MEDS: APIXABAN 2.5 MG TABLET PO SCH (09:31)
[2022-01-04] MEDS: BACITRACIN 15 GM TUBE TOPICAL OINTMENT TP SCH (09:31)
[2022-01-04] MEDS: FERROUS SO4 325 MG TABLET (FP) PO SCH (09:31)
[2022-01-04] MEDS: TORSEMIDE 20 MG TABLET (FP) PO SCH (09:31)
[2022-01-04] MEDS: METOPROLOL TARTRATE 25 MG TABLET (FP) PO SCH (09:31)
[2022-01-04] MEDS: TAMSULOSIN HCL 0.4 MG CAP PO SCH (09:31)
[2022-01-04] MEDS: PANTOPRAZOLE 40 MG TABLET PO SCH (09:32)
[2022-01-04] MEDS: NIFEdipine E.R. 30 MG TABLET PO SCH (09:32)
[2022-01-04] MEDS: CALCIUM 500MG/VIT-D 200 UNITS COMBO TABLET (FP) PO SCH (09:32)
[2022-01-04] MEDS ORDERED: ceFAZolin SODIUM 1 GM VIAL IVPB ONE (09:32)
[2022-01-04] MEDS ORDERED: LIDOCAINE HCL 1%, 10 MG/ML (20ML VIAL) NR ONE (09:50)
[2022-01-04] MEDS ORDERED: ACETAMINOPHEN 325 MG TABLET (FP) PO PRN (10:19)
[2022-01-04] MEDS ORDERED: ONDANSETRON 4 MG/2 ML VIAL IVPUSH PRN (10:19)
[2022-01-04] MEDS ORDERED: ALBUTEROL SO4 HFA INHALER IH PRN (10:19)
[2022-01-04] MEDS ORDERED: LACTATED RINGERS SOLUTION 1,000 ML IV SCH (11:00)
[2022-01-04] MEDS ORDERED: SODIUM CHLORIDE 250 ML IV PRN (14:00)
[2022-01-04] MEDS ORDERED: EPOETIN ALFA-EPBX 10,000 UNIT/ML VIAL SQ ONE (14:00)
[2022-01-04] MEDS ORDERED: CALCIUM 500MG/VIT-D 200 UNITS COMBO TABLET (FP) PO SCH (22:00)
[2022-01-04] MEDS ORDERED: FERROUS SO4 325 MG TABLET (FP) PO SCH (22:00)
[2022-01-04] MEDS ORDERED: OLANZapine 5 MG TABLET PO SCH (22:00)
[2022-01-04] MEDS ORDERED: METOPROLOL TARTRATE 25 MG TABLET (FP) PO SCH (22:00)
[2022-01-04] MEDS ORDERED: APIXABAN 2.5 MG TABLET PO SCH (22:00)
[2022-01-04] MEDS ORDERED: PANTOPRAZOLE 40 MG TABLET PO SCH (22:00)
[2022-01-05 01:46] LABS: BASO % 0.8 % (0-2.0); EOS % 4.2 % (0-4.5); HEMATOCRIT 24.1 % (35.4-49); HEMOGLOBIN 7.8 GM/dL (11.7-16.9); LYMPH % 25.6 % (8-40); MCH 30.1 pg (25.7-33.7); MCHC 32.4 g/dl (32.0-35.9); MEAN CELL VOLUME 93.1 fl (80-96); MEAN PLT VOLUME 9.1 fl (7.5-11.1); MONO % 4.6 % (3.8-10.2); NEUT % 64.8 % (42.8-82.8); PLATELET COUNT 77 10^3/uL (134-434); RBC 2.59 M/mm3 (4.00-5.60); RDW 16.6 % (11.9-15.9); WHITE BLOOD COUNT 3.9 K/mm3 (4.0-10.0)
[2022-01-05 01:59] LABS: INR 1.14 (0.83-1.09); PROTHROMBIN TIME (PATIENT) 13.1 SEC (9.7-13.0)
[2022-01-05 02:02] LABS: ACTIVATED PTT 37.8 SECONDS (25.2-36.5)
[2022-01-05 02:08] LABS: ALBUMIN 2.1 g/dl (3.4-5.0); CALCIUM 7.1 mg/dL (8.5-10.1); MAGNESIUM 1.8 mg/dL (1.8-2.4)
[2022-01-05 02:11] LABS: PHOSPHOROUS 2.7 mg/dL (2.5-4.9)
[2022-01-05 02:13] LABS: BILIRUBIN,TOTAL 0.3 mg/dL (0.2-1); TOT PROT 5.3 g/dl (6.4-8.2)
[2022-01-05] MEDS ORDERED: LACTATED RINGERS SOLUTION 1,000 ML IV SCH (02:30)
[2022-01-05] MEDS ORDERED: ONDANSETRON 4 MG/2 ML VIAL IVPUSH PRN (02:30)
[2022-01-05] MEDS ORDERED: SODIUM CHLORIDE 250 ML IV PRN (02:30)
[2022-01-05] MEDS ORDERED: ACETAMINOPHEN 325 MG TABLET (FP) PO PRN (02:30)
[2022-01-05] MEDS ORDERED: ALBUTEROL SO4 HFA INHALER IH PRN (02:30)
[2022-01-05 02:46] LABS: BLOOD UREA NITROGEN 41.1 mg/dL (7-18)
[2022-01-05] MEDS: TAMSULOSIN HCL 0.4 MG CAP PO SCH (08:12)
[2022-01-05] MEDS: CALCIUM ACETATE 667 MG CAPSULE (FP) PO SCH ×3 (08:12→17:32)
[2022-01-05] MEDS ORDERED: TAMSULOSIN HCL 0.4 MG CAP PO SCH (08:30)
[2022-01-05] MEDS ORDERED: BACITRACIN 15 GM TUBE TOPICAL OINTMENT TP SCH (10:00)
[2022-01-05] MEDS ORDERED: TORSEMIDE 20 MG TABLET (FP) PO SCH ×2 (10:00)
[2022-01-05] MEDS ORDERED: NIFEdipine E.R 60 MG TABLET PO SCH (10:00)
[2022-01-05] MEDS: BACITRACIN 15 GM TUBE TOPICAL OINTMENT TP SCH (10:26)
[2022-01-05] MEDS: FERROUS SO4 325 MG TABLET (FP) PO SCH ×2 (10:27→21:28)
[2022-01-05] MEDS: CALCIUM 500MG/VIT-D 200 UNITS COMBO TABLET (FP) PO SCH ×2 (10:27→21:27)
[2022-01-05] MEDS: NIFEdipine E.R 60 MG TABLET PO SCH (10:27)
[2022-01-05] MEDS: PANTOPRAZOLE 40 MG TABLET PO SCH ×2 (10:28→21:29)
[2022-01-05] MEDS: METOPROLOL TARTRATE 50 MG TABLET (FP) PO SCH ×2 (10:28→21:33)
[2022-01-05] MEDS: ATORVASTATIN CA 80 MG TABLET (FP) PO SCH (21:27)
[2022-01-05] MEDS: APIXABAN 2.5 MG TABLET PO SCH (21:29)
[2022-01-05] MEDS: OLANZapine 5 MG TABLET PO SCH (21:30)
[2022-01-05] MEDS ORDERED: ATORVASTATIN CA 80 MG TABLET (FP) PO SCH (22:00)
[2022-01-06] MEDS ORDERED: EPOETIN ALFA-EPBX 10,000 UNIT/ML VIAL IVPUSH ONE (08:00)
[2022-01-06] MEDS ORDERED: SODIUM CHLORIDE 250 ML IV PRN (08:00)
[2022-01-06] MEDS: FERROUS SO4 325 MG TABLET (FP) PO SCH ×2 (09:02→22:30)
[2022-01-06] MEDS: CALCIUM ACETATE 667 MG CAPSULE (FP) PO SCH ×2 (09:02→17:47)
[2022-01-06] MEDS: APIXABAN 2.5 MG TABLET PO SCH (09:02)
[2022-01-06] MEDS: CALCIUM 500MG/VIT-D 200 UNITS COMBO TABLET (FP) PO SCH ×2 (09:02→22:30)
[2022-01-06] MEDS: TAMSULOSIN HCL 0.4 MG CAP PO SCH (09:02)
[2022-01-06] MEDS: PANTOPRAZOLE 40 MG TABLET PO SCH ×2 (09:04→22:31)
[2022-01-06 09:12] LABS: CALCIUM 7.3 mg/dL (8.5-10.1)
[2022-01-06 09:13] LABS: ALBUMIN 2.3 g/dl (3.4-5.0); BLOOD UREA NITROGEN 52.6 mg/dL (7-18)
[2022-01-06 09:16] LABS: CREATININE 5.8 mg/dL (0.55-1.3)
[2022-01-06 09:17] LABS: TOT PROT 5.5 g/dl (6.4-8.2)
[2022-01-06 09:19] LABS: BILIRUBIN,TOTAL 0.4 mg/dL (0.2-1)
[2022-01-06] MEDS: NIFEdipine E.R 60 MG TABLET PO SCH (10:24)
[2022-01-06] MEDS: METOPROLOL TARTRATE 50 MG TABLET (FP) PO SCH ×2 (10:24→22:30)
[2022-01-06] MEDS: BACITRACIN 15 GM TUBE TOPICAL OINTMENT TP SCH (10:24)
[2022-01-06 17:10] LABS: BASO % 0.5 % (0-2.0); EOS % 1.9 % (0-4.5); HEMATOCRIT 26.1 % (35.4-49); HEMOGLOBIN 8.5 GM/dL (11.7-16.9); LYMPH % 18.2 % (8-40); MCH 28.8 pg (25.7-33.7); MCHC 32.7 g/dl (32.0-35.9); MEAN CELL VOLUME 88.1 fl (80-96); MEAN PLT VOLUME 8.8 fl (7.5-11.1); MONO % 5.6 % (3.8-10.2); NEUT % 73.8 % (42.8-82.8); PLATELET COUNT 68 10^3/uL (134-434); RBC 2.97 M/mm3 (4.00-5.60); RDW 16.9 % (11.9-15.9); WHITE BLOOD COUNT 4.6 K/mm3 (4.0-10.0)
[2022-01-06 17:32] LABS: ALBUMIN 2.3 g/dl (3.4-5.0); CALCIUM 7.2 mg/dL (8.5-10.1)
[2022-01-06 17:36] LABS: BILIRUBIN,TOTAL 0.4 mg/dL (0.2-1); CREATININE 3.8 mg/dL (0.55-1.3); TOT PROT 5.8 g/dl (6.4-8.2)
[2022-01-06] MEDS: ATORVASTATIN CA 80 MG TABLET (FP) PO SCH (22:30)
[2022-01-06] MEDS: APIXABAN 5 MG TABLET PO SCH (22:30)
[2022-01-06] MEDS: OLANZapine 5 MG TABLET PO SCH (22:31)
[2022-01-07] MEDS: NIFEdipine E.R 60 MG TABLET PO SCH (09:19)
[2022-01-07] MEDS: METOPROLOL TARTRATE 50 MG TABLET (FP) PO SCH ×2 (09:19→21:17)
[2022-01-07] MEDS: FERROUS SO4 325 MG TABLET (FP) PO SCH ×2 (09:19→21:17)
[2022-01-07] MEDS: CALCIUM 500MG/VIT-D 200 UNITS COMBO TABLET (FP) PO SCH ×2 (09:19→21:17)
[2022-01-07] MEDS: TAMSULOSIN HCL 0.4 MG CAP PO SCH (09:19)
[2022-01-07] MEDS: PANTOPRAZOLE 40 MG TABLET PO SCH ×2 (09:19→21:17)
[2022-01-07] MEDS: APIXABAN 5 MG TABLET PO SCH ×2 (09:20→21:17)
[2022-01-07] MEDS: BACITRACIN 15 GM TUBE TOPICAL OINTMENT TP SCH (09:20)
[2022-01-07] MEDS: CALCIUM ACETATE 667 MG CAPSULE (FP) PO SCH ×4 (09:20→17:14)
[2022-01-07] MEDS: OLANZapine 5 MG TABLET PO SCH (21:17)
[2022-01-07] MEDS: ATORVASTATIN CA 80 MG TABLET (FP) PO SCH (21:17)
[2022-01-08] MEDS: CALCIUM 500MG/VIT-D 200 UNITS COMBO TABLET (FP) PO SCH ×2 (10:17→21:20)
[2022-01-08] MEDS: APIXABAN 5 MG TABLET PO SCH ×2 (10:17→21:20)
[2022-01-08] MEDS: NIFEdipine E.R 60 MG TABLET PO SCH (10:17)
[2022-01-08] MEDS: FERROUS SO4 325 MG TABLET (FP) PO SCH ×2 (10:18→21:20)
[2022-01-08] MEDS: METOPROLOL TARTRATE 50 MG TABLET (FP) PO SCH ×2 (10:18→21:20)
[2022-01-08] MEDS: PANTOPRAZOLE 40 MG TABLET PO SCH ×2 (10:18→21:21)
[2022-01-08] MEDS: TAMSULOSIN HCL 0.4 MG CAP PO SCH (10:19)
[2022-01-08] MEDS: BACITRACIN 15 GM TUBE TOPICAL OINTMENT TP SCH (11:41)
[2022-01-08] MEDS: CALCIUM ACETATE 667 MG CAPSULE (FP) PO SCH ×3 (11:41→17:36)
[2022-01-08] MEDS ORDERED: SODIUM CHLORIDE 250 ML IV PRN (14:04)
[2022-01-08] MEDS: OLANZapine 5 MG TABLET PO SCH (21:20)
[2022-01-08] MEDS: ATORVASTATIN CA 80 MG TABLET (FP) PO SCH (21:20)
[2022-01-09] MEDS ORDERED: EPOETIN ALFA-EPBX 10,000 UNIT/ML VIAL IVPUSH ONE (07:30)
[2022-01-09 08:30] LABS: HEMATOCRIT 23.6 % (35.4-49); HEMOGLOBIN 7.4 GM/dL (11.7-16.9); MCHC 31.5 g/dl (32.0-35.9); MEAN CELL VOLUME 88.9 fl (80-96); MEAN PLT VOLUME 8.8 fl (7.5-11.1); PLATELET COUNT 97 10^3/uL (134-434); RBC 2.66 M/mm3 (4.00-5.60); RDW 16.7 % (11.9-15.9); WHITE BLOOD COUNT 4.6 K/mm3 (4.0-10.0)
[2022-01-09 09:05] LABS: CALCIUM 7.3 mg/dL (8.5-10.1)
[2022-01-09 09:06] LABS: ALBUMIN 2.1 g/dl (3.4-5.0)
[2022-01-09 09:08] LABS: BILIRUBIN,TOTAL 0.3 mg/dL (0.2-1); TOT PROT 5.1 g/dl (6.4-8.2)
[2022-01-09 09:09] LABS: CREATININE 6.3 mg/dL (0.55-1.3)
[2022-01-09] MEDS: FERROUS SO4 325 MG TABLET (FP) PO SCH ×2 (09:43→21:19)
[2022-01-09] MEDS: METOPROLOL TARTRATE 50 MG TABLET (FP) PO SCH ×2 (09:44→21:19)
[2022-01-09] MEDS: TAMSULOSIN HCL 0.4 MG CAP PO SCH (09:44)
[2022-01-09] MEDS: BACITRACIN 15 GM TUBE TOPICAL OINTMENT TP SCH (09:44)
[2022-01-09] MEDS: CALCIUM 500MG/VIT-D 200 UNITS COMBO TABLET (FP) PO SCH ×2 (09:44→21:22)
[2022-01-09] MEDS: PANTOPRAZOLE 40 MG TABLET PO SCH ×2 (09:44→21:19)
[2022-01-09] MEDS: APIXABAN 5 MG TABLET PO SCH ×2 (09:44→21:19)
[2022-01-09] MEDS: NIFEdipine E.R 60 MG TABLET PO SCH (09:44)
[2022-01-09] MEDS: CALCIUM ACETATE 667 MG CAPSULE (FP) PO SCH ×3 (09:45→17:51)
[2022-01-09] MEDS: OLANZapine 5 MG TABLET PO SCH (21:20)
[2022-01-09] MEDS: ATORVASTATIN CA 80 MG TABLET (FP) PO SCH (21:20)
[2022-01-10] MEDS: FERROUS SO4 325 MG TABLET (FP) PO SCH ×2 (10:22→21:04)
[2022-01-10] MEDS: CALCIUM 500MG/VIT-D 200 UNITS COMBO TABLET (FP) PO SCH ×2 (10:22→21:04)
[2022-01-10] MEDS: PANTOPRAZOLE 40 MG TABLET PO SCH ×2 (10:22→21:05)
[2022-01-10] MEDS: CALCIUM ACETATE 667 MG CAPSULE (FP) PO SCH ×3 (10:22→17:23)
[2022-01-10] MEDS: TAMSULOSIN HCL 0.4 MG CAP PO SCH (10:22)
[2022-01-10] MEDS: METOPROLOL TARTRATE 50 MG TABLET (FP) PO SCH ×2 (10:22→21:04)
[2022-01-10] MEDS: APIXABAN 5 MG TABLET PO SCH ×2 (10:22→21:05)
[2022-01-10] MEDS: NIFEdipine E.R 60 MG TABLET PO SCH (10:22)
[2022-01-10] MEDS: BACITRACIN 15 GM TUBE TOPICAL OINTMENT TP SCH (10:23)
[2022-01-10] MEDS: ATORVASTATIN CA 80 MG TABLET (FP) PO SCH (21:04)
[2022-01-10] MEDS: OLANZapine 5 MG TABLET PO SCH (21:05)
[2022-01-11] MEDS ORDERED: SODIUM CHLORIDE 250 ML IV PRN (08:30)
[2022-01-11] MEDS ORDERED: EPOETIN ALFA-EPBX 10,000 UNIT/ML VIAL IVPUSH ONE (08:30)
[2022-01-11 09:44] LABS: CHLORIDE 107 mmol/L (98-107); SODIUM 142 mmol/L (136-145)
[2022-01-11 10:02] LABS: ALBUMIN 2.1 g/dl (3.4-5.0)
[2022-01-11 10:03] LABS: ANION GAP 10 MMOL/L (8-16); BLOOD UREA NITROGEN 51.8 mg/dL (7-18); CO2 26 mmol/L (21-32); GLUCOSE,RANDOM 129 mg/dL (74-106)
[2022-01-11 10:04] LABS: CREATININE 5.6 mg/dL (0.55-1.3)
[2022-01-11 10:05] LABS: SGOT/AST 36 U/L (15-37)
[2022-01-11 10:06] LABS: BILIRUBIN,TOTAL 0.3 mg/dL (0.2-1); SGPT/ALT 22 U/L (13-61); TOT PROT 5.4 g/dl (6.4-8.2)
[2022-01-11 10:07] LABS: ALK PHOS 107 U/L (45-117)
[2022-01-11 10:12] LABS: CALCIUM 6.9 mg/dL (8.5-10.1)
[2022-01-11] MEDS ORDERED: CALCIUM GLUCONATE 10% - 1,000 MG/10 ML VIAL IVPB ONE (10:22)
[2022-01-11] MEDS: CALCITRIOL 0.25 MCG CAPSULE (FP) PO SCH (11:50)
[2022-01-11] MEDS: CALCIUM 500MG/VIT-D 200 UNITS COMBO TABLET (FP) PO SCH ×2 (11:50→21:10)
[2022-01-11] MEDS: APIXABAN 5 MG TABLET PO SCH ×2 (11:51→21:11)
[2022-01-11] MEDS: FERROUS SO4 325 MG TABLET (FP) PO SCH ×2 (11:51→21:11)
[2022-01-11] MEDS: METOPROLOL TARTRATE 50 MG TABLET (FP) PO SCH ×2 (11:51→21:11)
[2022-01-11] MEDS: PANTOPRAZOLE 40 MG TABLET PO SCH ×2 (11:51→21:10)
[2022-01-11] MEDS: TAMSULOSIN HCL 0.4 MG CAP PO SCH (11:52)
[2022-01-11] MEDS: BACITRACIN 15 GM TUBE TOPICAL OINTMENT TP SCH (11:52)
[2022-01-11] MEDS: CALCIUM ACETATE 667 MG CAPSULE (FP) PO SCH ×3 (11:52→17:20)
[2022-01-11] MEDS: NIFEdipine E.R 60 MG TABLET PO SCH (12:11)
[2022-01-11] MEDS ORDERED: ACETAMINOPHEN 325 MG TABLET (FP) PO ONE (14:15)
[2022-01-11 15:05] LABS: BASO % 0.7 % (0-2.0); EOS % 2.7 % (0-4.5); HEMATOCRIT 25.6 % (35.4-49); HEMOGLOBIN 8.2 GM/dL (11.7-16.9); LYMPH % 12.8 % (8-40); MEAN CELL VOLUME 87.4 fl (80-96); MONO % 6.2 % (3.8-10.2); NEUT % 77.6 % (42.8-82.8); PLATELET COUNT 75 10^3/uL (134-434); RBC 2.93 M/mm3 (4.00-5.60); RDW 16.4 % (11.9-15.9); WHITE BLOOD COUNT 4.5 K/mm3 (4.0-10.0)
[2022-01-11] MEDS ORDERED: VANCOMYCIN 1 GM in D5W (PRE-DOCKED) 1,000 MG/250 ML IVPB SCH (16:00)
[2022-01-11] MEDS ORDERED: VANCOMYCIN 1 GM/200 ML PREMIX BAG IVPB SCH (16:00)
[2022-01-11] MEDS: PIPERACILLIN/TAZOB 2.25 GM 2.25 GM in DEXTROSE 5%-WATER - 50 ML IVPB SCH (17:18)
[2022-01-11] MEDS: ATORVASTATIN CA 80 MG TABLET (FP) PO SCH (21:10)
[2022-01-11] MEDS: OLANZapine 5 MG TABLET PO SCH (21:11)
[2022-01-12] MEDS: PIPERACILLIN/TAZOB 2.25 GM 2.25 GM in DEXTROSE 5%-WATER - 50 ML IVPB SCH ×3 (01:39→22:31)
[2022-01-12] MEDS ORDERED: ONDANSETRON 4 MG/2 ML VIAL IVPUSH PRN (02:02)
[2022-01-12] MEDS ORDERED: ACETAMINOPHEN 325 MG TABLET (FP) PO PRN (02:02)
[2022-01-12] MEDS ORDERED: ALBUTEROL SO4 HFA INHALER IH PRN (02:02)
[2022-01-12] MEDS ORDERED: METOPROLOL TARTRATE 50 MG TABLET (FP) PO SCH (10:00)
[2022-01-12] MEDS: BACITRACIN 15 GM TUBE TOPICAL OINTMENT TP SCH (10:45)
[2022-01-12] MEDS: TAMSULOSIN HCL 0.4 MG CAP PO SCH (10:45)
[2022-01-12] MEDS: CALCIUM ACETATE 667 MG CAPSULE (FP) PO SCH ×3 (10:45→17:44)
[2022-01-12] MEDS: CALCITRIOL 0.25 MCG CAPSULE (FP) PO SCH (10:46)
[2022-01-12] MEDS: APIXABAN 5 MG TABLET PO SCH ×2 (10:46→21:31)
[2022-01-12] MEDS: FERROUS SO4 325 MG TABLET (FP) PO SCH ×2 (10:46→21:31)
[2022-01-12] MEDS: NIFEdipine E.R. 90 MG TABLET PO SCH (10:47)
[2022-01-12] MEDS: CALCIUM 500MG/VIT-D 200 UNITS COMBO TABLET (FP) PO SCH ×2 (10:47→21:31)
[2022-01-12] MEDS: PANTOPRAZOLE 40 MG TABLET PO SCH ×2 (10:47→21:31)
[2022-01-12] MEDS ORDERED: REMDESIVIR 200 MG in SODIUM CHLORIDE 250 ML IVPB ONE (11:45)
[2022-01-12] MEDS ORDERED: REMDESIVIR 100 MG in SODIUM CHLORIDE 250 ML IVPB SCH (12:00)
[2022-01-12] MEDS: ATORVASTATIN CA 80 MG TABLET (FP) PO SCH (21:31)
[2022-01-12] MEDS: METOPROLOL TARTRATE 25 MG TABLET (FP) PO SCH (21:32)
[2022-01-12] MEDS: OLANZapine 5 MG TABLET PO SCH (21:32)
[2022-01-13] MEDS: CALCIUM 500MG/VIT-D 200 UNITS COMBO TABLET (FP) PO SCH ×2 (09:56→21:01)
[2022-01-13] MEDS: METOPROLOL TARTRATE 25 MG TABLET (FP) PO SCH ×2 (09:56→21:02)
[2022-01-13] MEDS: APIXABAN 5 MG TABLET PO SCH ×2 (09:56→21:01)
[2022-01-13] MEDS: BACITRACIN 15 GM TUBE TOPICAL OINTMENT TP SCH (09:57)
[2022-01-13] MEDS: FERROUS SO4 325 MG TABLET (FP) PO SCH ×2 (09:57→21:02)
[2022-01-13] MEDS: TAMSULOSIN HCL 0.4 MG CAP PO SCH (09:57)
[2022-01-13] MEDS ORDERED: EPOETIN ALFA-EPBX 10,000 UNIT/ML VIAL IVPUSH ONE (10:00)
[2022-01-13] MEDS ORDERED: SODIUM CHLORIDE 250 ML IV PRN (10:00)
[2022-01-13] MEDS: NIFEdipine E.R. 90 MG TABLET PO SCH (10:00)
[2022-01-13] MEDS: PANTOPRAZOLE 40 MG TABLET PO SCH ×2 (10:02→21:02)
[2022-01-13] MEDS: CALCIUM ACETATE 667 MG CAPSULE (FP) PO SCH ×3 (10:03→17:49)
[2022-01-13 10:14] LABS: EPI CELLS 6 /uL (0-25.1); HYALINE CASTS 0 /uL (0-3.1); PH,URINE 7.5 (5.0-8.0); URINE APPEARANCE CLEAR; URINE BACTERIA 257 /uL (0-1359); URINE BILIRUBIN NEGATIVE (NEGATIVE); URINE COLOR YELLOW; URINE GLUCOSE (UA) TRACE (NEGATIVE); URINE KETONE NEGATIVE (NEGATIVE); URINE LEUK ESTERASE NEGATIVE (NEGATIVE); URINE NITRITE NEGATIVE (NEGATIVE); URINE PROTEIN 3+ (NEGATIVE); URINE RBC 12 /uL (0-23.9); URINE UROBILINOGEN 0.2 mg/dL (0.2-1.0); URINE WBC 2 /uL (0-25.8)
[2022-01-13] MEDS: CALCITRIOL 0.25 MCG CAPSULE (FP) PO SCH (10:45)
[2022-01-13] MEDS: REMDESIVIR 100 MG in SODIUM CHLORIDE 250 ML IVPB SCH (13:38)
[2022-01-13] MEDS: ATORVASTATIN CA 80 MG TABLET (FP) PO SCH (21:01)
[2022-01-13] MEDS: OLANZapine 5 MG TABLET PO SCH (21:01)
[2022-01-14] MEDS: METOPROLOL TARTRATE 25 MG TABLET (FP) PO SCH ×2 (10:15→22:32)
[2022-01-14] MEDS: TAMSULOSIN HCL 0.4 MG CAP PO SCH (10:16)
[2022-01-14] MEDS: PANTOPRAZOLE 40 MG TABLET PO SCH ×2 (10:16→22:32)
[2022-01-14] MEDS: APIXABAN 5 MG TABLET PO SCH ×2 (10:16→22:31)
[2022-01-14] MEDS: CALCIUM 500MG/VIT-D 200 UNITS COMBO TABLET (FP) PO SCH ×2 (10:16→22:32)
[2022-01-14] MEDS: FERROUS SO4 325 MG TABLET (FP) PO SCH ×2 (10:16→22:32)
[2022-01-14] MEDS: NIFEdipine E.R. 90 MG TABLET PO SCH (10:18)
[2022-01-14] MEDS: CALCIUM ACETATE 667 MG CAPSULE (FP) PO SCH ×3 (10:18→17:27)
[2022-01-14] MEDS: BACITRACIN 15 GM TUBE TOPICAL OINTMENT TP SCH (10:19)
[2022-01-14] MEDS: CALCITRIOL 0.25 MCG CAPSULE (FP) PO SCH (10:19)
[2022-01-14] MEDS: REMDESIVIR 100 MG in SODIUM CHLORIDE 250 ML IVPB SCH (12:01)
[2022-01-14] MEDS: ATORVASTATIN CA 80 MG TABLET (FP) PO SCH (22:32)
[2022-01-14] MEDS: OLANZapine 5 MG TABLET PO SCH (22:32)
[2022-01-15 08:27] LABS: HEMATOCRIT 24.9 % (35.4-49); HEMOGLOBIN 7.9 GM/dL (11.7-16.9); MCHC 31.9 g/dl (32.0-35.9); MEAN PLT VOLUME 9.7 fl (7.5-11.1); PLATELET COUNT 75 10^3/uL (134-434); RBC 2.83 M/mm3 (4.00-5.60); WHITE BLOOD COUNT 3.8 K/mm3 (4.0-10.0)
[2022-01-15 08:38] LABS: BLOOD UREA NITROGEN 59.4 mg/dL (7-18); CALCIUM 7.1 mg/dL (8.5-10.1)
[2022-01-15 08:40] LABS: CREATININE 5.8 mg/dL (0.55-1.3)
[2022-01-15 08:41] LABS: BILIRUBIN,TOTAL 0.3 mg/dL (0.2-1); PHOSPHOROUS 2.9 mg/dL (2.5-4.9); TOT PROT 5.1 g/dl (6.4-8.2)
[2022-01-15] MEDS: CALCIUM ACETATE 667 MG CAPSULE (FP) PO SCH ×3 (08:55→16:45)
[2022-01-15] MEDS: APIXABAN 5 MG TABLET PO SCH ×2 (09:13→21:41)
[2022-01-15] MEDS: BACITRACIN 15 GM TUBE TOPICAL OINTMENT TP SCH (09:13)
[2022-01-15] MEDS: TAMSULOSIN HCL 0.4 MG CAP PO SCH (09:13)
[2022-01-15] MEDS: CALCITRIOL 0.25 MCG CAPSULE (FP) PO SCH (09:14)
[2022-01-15] MEDS: FERROUS SO4 325 MG TABLET (FP) PO SCH ×2 (09:14→21:41)
[2022-01-15] MEDS: METOPROLOL TARTRATE 25 MG TABLET (FP) PO SCH ×2 (09:14→21:41)
[2022-01-15] MEDS: CALCIUM 500MG/VIT-D 200 UNITS COMBO TABLET (FP) PO SCH ×2 (09:14→21:41)
[2022-01-15] MEDS: PANTOPRAZOLE 40 MG TABLET PO SCH ×2 (09:14→21:41)
[2022-01-15] MEDS ORDERED: NIFEdipine E.R. 30 MG TABLET PO SCH (10:04)
[2022-01-15] MEDS: NIFEdipine E.R. 90 MG TABLET PO SCH (11:01)
[2022-01-15] MEDS: NIFEdipine E.R. 30 MG TABLET PO SCH (11:02)
[2022-01-15] MEDS: ATORVASTATIN CA 80 MG TABLET (FP) PO SCH (21:41)
[2022-01-15] MEDS: OLANZapine 5 MG TABLET PO SCH (21:41)
[2022-01-16] MEDS ORDERED: SODIUM CHLORIDE 250 ML IV PRN (07:01)
[2022-01-16] MEDS ORDERED: EPOETIN ALFA-EPBX 10,000 UNIT/ML VIAL SQ ONE (07:01)
[2022-01-16 07:35] LABS: HEMATOCRIT 26.7 % (35.4-49); HEMOGLOBIN 8.5 GM/dL (11.7-16.9); MCH 28.5 pg (25.7-33.7); MCHC 31.7 g/dl (32.0-35.9); MEAN CELL VOLUME 89.8 fl (80-96); MEAN PLT VOLUME 9.3 fl (7.5-11.1); PLATELET COUNT 85 10^3/uL (134-434); RBC 2.97 M/mm3 (4.00-5.60); RDW 16.2 % (11.9-15.9); WHITE BLOOD COUNT 3.4 K/mm3 (4.0-10.0)
[2022-01-16 08:05] LABS: CALCIUM 7.5 mg/dL (8.5-10.1)
[2022-01-16 08:06] LABS: ALBUMIN 2.1 g/dl (3.4-5.0); BLOOD UREA NITROGEN 69.8 mg/dL (7-18); MAGNESIUM 1.9 mg/dL (1.8-2.4)
[2022-01-16 08:09] LABS: CREATININE 6.3 mg/dL (0.55-1.3); PHOSPHOROUS 2.9 mg/dL (2.5-4.9)
[2022-01-16 08:10] LABS: BILIRUBIN,TOTAL 0.4 mg/dL (0.2-1); TOT PROT 5.3 g/dl (6.4-8.2)
[2022-01-16] MEDS ORDERED: EPOETIN ALFA EPBX SQ ONE (10:00)
[2022-01-16] MEDS: CALCIUM 500MG/VIT-D 200 UNITS COMBO TABLET (FP) PO SCH ×2 (11:06→22:58)
[2022-01-16] MEDS: PANTOPRAZOLE 40 MG TABLET PO SCH ×2 (11:06→22:58)
[2022-01-16] MEDS: FERROUS SO4 325 MG TABLET (FP) PO SCH ×2 (11:06→22:58)
[2022-01-16] MEDS: TAMSULOSIN HCL 0.4 MG CAP PO SCH (11:07)
[2022-01-16] MEDS: CALCITRIOL 0.25 MCG CAPSULE (FP) PO SCH (11:07)
[2022-01-16] MEDS: METOPROLOL TARTRATE 25 MG TABLET (FP) PO SCH ×2 (11:07→22:58)
[2022-01-16] MEDS: APIXABAN 5 MG TABLET PO SCH ×2 (11:07→22:58)
[2022-01-16] MEDS: NIFEdipine E.R. 30 MG TABLET PO SCH (11:07)
[2022-01-16] MEDS: CALCIUM ACETATE 667 MG CAPSULE (FP) PO SCH ×3 (11:09→17:27)
[2022-01-16] MEDS: BACITRACIN 15 GM TUBE TOPICAL OINTMENT TP SCH (11:09)
[2022-01-16] MEDS: ATORVASTATIN CA 80 MG TABLET (FP) PO SCH (22:58)
[2022-01-16] MEDS: OLANZapine 5 MG TABLET PO SCH (22:58)
[2022-01-17] MEDS: CALCIUM ACETATE 667 MG CAPSULE (FP) PO SCH ×3 (08:10→17:11)
[2022-01-17] MEDS: TAMSULOSIN HCL 0.4 MG CAP PO SCH (08:10)
[2022-01-17 08:40] LABS: HEMATOCRIT 27.5 % (35.4-49); HEMOGLOBIN 8.9 GM/dL (11.7-16.9); MCH 29.9 pg (25.7-33.7); MCHC 32.3 g/dl (32.0-35.9); MEAN CELL VOLUME 92.7 fl (80-96); MEAN PLT VOLUME 9.1 fl (7.5-11.1); PLATELET COUNT 82 10^3/uL (134-434); RBC 2.97 M/mm3 (4.00-5.60); RDW 16.4 % (11.9-15.9)
[2022-01-17 09:10] LABS: ALBUMIN 2.4 g/dl (3.4-5.0); BLOOD UREA NITROGEN 46.4 mg/dL (7-18); CALCIUM 7.9 mg/dL (8.5-10.1); MAGNESIUM 1.9 mg/dL (1.8-2.4)
[2022-01-17 09:13] LABS: CREATININE 4.6 mg/dL (0.55-1.3)
[2022-01-17 09:14] LABS: PHOSPHOROUS 2.4 mg/dL (2.5-4.9)
[2022-01-17 09:15] LABS: BILIRUBIN,TOTAL 0.4 mg/dL (0.2-1); TOT PROT 6.1 g/dl (6.4-8.2)
[2022-01-17] MEDS: CALCITRIOL 0.25 MCG CAPSULE (FP) PO SCH (10:27)
[2022-01-17] MEDS: NIFEdipine E.R. 30 MG TABLET PO SCH (10:27)
[2022-01-17] MEDS: FERROUS SO4 325 MG TABLET (FP) PO SCH ×2 (10:27→21:39)
[2022-01-17] MEDS: APIXABAN 5 MG TABLET PO SCH ×2 (10:27→21:39)
[2022-01-17] MEDS: PANTOPRAZOLE 40 MG TABLET PO SCH ×2 (10:27→21:41)
[2022-01-17] MEDS: CALCIUM 500MG/VIT-D 200 UNITS COMBO TABLET (FP) PO SCH ×2 (10:28→21:39)
[2022-01-17] MEDS: BACITRACIN 15 GM TUBE TOPICAL OINTMENT TP SCH (10:28)
[2022-01-17] MEDS: METOPROLOL TARTRATE 25 MG TABLET (FP) PO SCH ×2 (10:36→21:40)
[2022-01-17] MEDS: ATORVASTATIN CA 80 MG TABLET (FP) PO SCH (21:38)
[2022-01-17] MEDS: OLANZapine 5 MG TABLET PO SCH (21:41)
[2022-01-18] MEDS: CALCIUM ACETATE 667 MG CAPSULE (FP) PO SCH ×3 (08:27→16:59)
[2022-01-18] MEDS: TAMSULOSIN HCL 0.4 MG CAP PO SCH (08:27)
[2022-01-18 09:27] LABS: HEMATOCRIT 25.7 % (35.4-49); MCH 27.1 pg (25.7-33.7); MEAN CELL VOLUME 87.6 fl (80-96); PLATELET COUNT 99 10^3/uL (134-434); RBC 2.94 M/mm3 (4.00-5.60); RDW 16.5 % (11.9-15.9); WHITE BLOOD COUNT 3.9 K/mm3 (4.0-10.0)
[2022-01-18] MEDS ORDERED: EPOETIN ALFA EPBX IVPUSH ONE (09:30)
[2022-01-18] MEDS ORDERED: SODIUM CHLORIDE 250 ML IV PRN (09:30)
[2022-01-18] MEDS ORDERED: EPOETIN ALFA-EPBX 10,000 UNIT/ML VIAL SQ ONE (09:30)
[2022-01-18 09:52] LABS: CALCIUM 8.2 mg/dL (8.5-10.1)
[2022-01-18 09:53] LABS: ALBUMIN 2.3 g/dl (3.4-5.0); BLOOD UREA NITROGEN 58.4 mg/dL (7-18)
[2022-01-18 09:56] LABS: CREATININE 5.3 mg/dL (0.55-1.3)
[2022-01-18 09:57] LABS: BILIRUBIN,TOTAL 0.4 mg/dL (0.2-1); TOT PROT 5.5 g/dl (6.4-8.2)
[2022-01-18] MEDS ORDERED: IRON SUCROSE INJECTION 100 MG in SODIUM CHLORIDE 95 ML IVPB ONE (10:00)
[2022-01-18] MEDS: APIXABAN 5 MG TABLET PO SCH ×2 (11:00→21:25)
[2022-01-18] MEDS: CALCIUM 500MG/VIT-D 200 UNITS COMBO TABLET (FP) PO SCH ×2 (11:00→21:25)
[2022-01-18] MEDS: CALCITRIOL 0.25 MCG CAPSULE (FP) PO SCH (11:00)
[2022-01-18] MEDS: BACITRACIN 15 GM TUBE TOPICAL OINTMENT TP SCH (11:00)
[2022-01-18] MEDS: FERROUS SO4 325 MG TABLET (FP) PO SCH ×2 (11:00→21:25)
[2022-01-18] MEDS: PANTOPRAZOLE 40 MG TABLET PO SCH ×2 (11:47→21:25)
[2022-01-18] MEDS: METOPROLOL TARTRATE 25 MG TABLET (FP) PO SCH (16:07)
[2022-01-18] MEDS: metoPROLOL SUCCINATE 25 MG TAB.SR.24H (FP) PO SCH (16:08)
[2022-01-18] MEDS: NIFEdipine E.R. 30 MG TABLET PO SCH (16:08)
[2022-01-18] MEDS: ATORVASTATIN CA 80 MG TABLET (FP) PO SCH (21:25)
[2022-01-18] MEDS: OLANZapine 5 MG TABLET PO SCH (21:25)
[2022-01-19] MEDS: TAMSULOSIN HCL 0.4 MG CAP PO SCH (08:13)
[2022-01-19] MEDS: CALCIUM ACETATE 667 MG CAPSULE (FP) PO SCH ×2 (08:13→13:02)
[2022-01-19 08:33] LABS: HEMATOCRIT 24.7 % (35.4-49); MCH 30.8 pg (25.7-33.7); MCHC 32.5 g/dl (32.0-35.9); MEAN CELL VOLUME 94.8 fl (80-96); MEAN PLT VOLUME 8.9 fl (7.5-11.1); PLATELET COUNT 86 10^3/uL (134-434); RDW 16.9 % (11.9-15.9); WHITE BLOOD COUNT 3.3 K/mm3 (4.0-10.0)
[2022-01-19 08:54] LABS: BLOOD UREA NITROGEN 36.5 mg/dL (7-18); CALCIUM 8.3 mg/dL (8.5-10.1); MAGNESIUM 1.8 mg/dL (1.8-2.4)
[2022-01-19 08:55] LABS: ALBUMIN 2.3 g/dl (3.4-5.0)
[2022-01-19 08:57] LABS: PHOSPHOROUS 1.8 mg/dL (2.5-4.9)
[2022-01-19 08:58] LABS: CREATININE 4.1 mg/dL (0.55-1.3)
[2022-01-19 08:59] LABS: BILIRUBIN,TOTAL 0.4 mg/dL (0.2-1); TOT PROT 5.4 g/dl (6.4-8.2)
[2022-01-19] MEDS: CALCITRIOL 0.25 MCG CAPSULE (FP) PO SCH (09:15)
[2022-01-19] MEDS: CALCIUM 500MG/VIT-D 200 UNITS COMBO TABLET (FP) PO SCH (09:15)
[2022-01-19] MEDS: APIXABAN 5 MG TABLET PO SCH ×2 (09:15→21:07)
[2022-01-19] MEDS: metoPROLOL SUCCINATE 25 MG TAB.SR.24H (FP) PO SCH (09:15)
[2022-01-19] MEDS: FERROUS SO4 325 MG TABLET (FP) PO SCH ×2 (09:15→21:07)
[2022-01-19] MEDS: NIFEdipine E.R. 30 MG TABLET PO SCH (09:16)
[2022-01-19] MEDS: PANTOPRAZOLE 40 MG TABLET PO SCH ×2 (09:18→21:07)
[2022-01-19] MEDS: BACITRACIN 15 GM TUBE TOPICAL OINTMENT TP SCH (09:22)
[2022-01-19] MEDS ORDERED: ACETAMINOPHEN 325 MG TABLET (FP) PO PRN (12:10)
[2022-01-19] MEDS ORDERED: ALBUTEROL SO4 HFA INHALER IH PRN (12:10)
[2022-01-19] MEDS ORDERED: ONDANSETRON 4 MG/2 ML VIAL IVPUSH PRN (12:10)
[2022-01-19] MEDS ORDERED: EPOETIN ALFA-EPBX 10,000 UNIT/ML VIAL SQ ONE (12:10)
[2022-01-19] MEDS ORDERED: CALCIUM ACETATE 667 MG CAPSULE (FP) PO SCH (17:30)
[2022-01-19] MEDS: ATORVASTATIN CA 80 MG TABLET (FP) PO SCH (21:07)
[2022-01-19] MEDS: OLANZapine 5 MG TABLET PO SCH (21:07)
[2022-01-19] MEDS ORDERED: CALCIUM 500MG/VIT-D 200 UNITS COMBO TABLET (FP) PO SCH (22:00)
[2022-01-20] MEDS: CALCIUM 500MG/VIT-D 200 UNITS COMBO TABLET (FP) PO SCH (06:02)
[2022-01-20 08:54] LABS: HEMATOCRIT 23.2 % (35.4-49); HEMOGLOBIN 7.3 GM/dL (11.7-16.9); MCH 28.6 pg (25.7-33.7); MCHC 31.6 g/dl (32.0-35.9); MEAN CELL VOLUME 90.6 fl (80-96); MEAN PLT VOLUME 9.1 fl (7.5-11.1); PLATELET COUNT 111 10^3/uL (134-434); RBC 2.57 M/mm3 (4.00-5.60); WHITE BLOOD COUNT 4.4 K/mm3 (4.0-10.0)
[2022-01-20 09:15] LABS: BLOOD UREA NITROGEN 54.1 mg/dL (7-18)
[2022-01-20 09:19] LABS: CREATININE 5.4 mg/dL (0.55-1.3)
[2022-01-20 09:53] LABS: MAGNESIUM 1.8 mg/dL (1.8-2.4)
[2022-01-20 09:54] LABS: ALBUMIN 2.5 g/dl (3.4-5.0)
[2022-01-20 09:57] LABS: PHOSPHOROUS 1.7 mg/dL (2.5-4.9)
[2022-01-20 09:58] LABS: BILIRUBIN,TOTAL 0.3 mg/dL (0.2-1); TOT PROT 5.6 g/dl (6.4-8.2)
[2022-01-20] MEDS ORDERED: CALCITRIOL 0.25 MCG CAPSULE (FP) PO SCH (10:00)
[2022-01-20] MEDS ORDERED: IRON SUCROSE INJECTION 100 MG in SODIUM CHLORIDE 95 ML IVPB ONE (10:00)
[2022-01-20] MEDS ORDERED: EPOETIN ALFA-EPBX 10,000 UNIT, EPOETIN ALFA-EPBX 2,000 UNIT SQ ONE (10:00)
[2022-01-20] MEDS: NIFEdipine E.R. 90 MG TABLET PO SCH (12:28)
[2022-01-20] MEDS: CALCITRIOL 0.25 MCG CAPSULE (FP) PO SCH (12:28)
[2022-01-20] MEDS: APIXABAN 5 MG TABLET PO SCH ×2 (12:28→21:43)
[2022-01-20] MEDS: PANTOPRAZOLE 40 MG TABLET PO SCH ×2 (12:28→21:43)
[2022-01-20] MEDS: FERROUS SO4 325 MG TABLET (FP) PO SCH ×2 (12:28→21:42)
[2022-01-20] MEDS: metoPROLOL SUCCINATE 25 MG TAB.SR.24H (FP) PO SCH (12:28)
[2022-01-20] MEDS: TAMSULOSIN HCL 0.4 MG CAP PO SCH (12:28)
[2022-01-20] MEDS: BACITRACIN 15 GM TUBE TOPICAL OINTMENT TP SCH ×2 (12:29→19:34)
[2022-01-20] MEDS ORDERED: EPOETIN ALFA-EPBX 10,000 UNIT/ML VIAL SQ ONE (13:05)
[2022-01-20] MEDS ORDERED: SODIUM CHLORIDE 250 ML IV PRN (13:05)
[2022-01-20] MEDS: OLANZapine 5 MG TABLET PO SCH (21:43)
[2022-01-20] MEDS: ATORVASTATIN CA 80 MG TABLET (FP) PO SCH (21:43)
[2022-01-21] MEDS: CALCIUM 500MG/VIT-D 200 UNITS COMBO TABLET (FP) PO SCH (07:02)
[2022-01-21] MEDS: APIXABAN 5 MG TABLET PO SCH ×2 (09:55→21:50)
[2022-01-21] MEDS: FERROUS SO4 325 MG TABLET (FP) PO SCH ×2 (09:55→21:50)
[2022-01-21] MEDS: CALCITRIOL 0.25 MCG CAPSULE (FP) PO SCH (09:55)
[2022-01-21] MEDS: metoPROLOL SUCCINATE 25 MG TAB.SR.24H (FP) PO SCH (09:55)
[2022-01-21] MEDS: TAMSULOSIN HCL 0.4 MG CAP PO SCH (09:56)
[2022-01-21] MEDS: PANTOPRAZOLE 40 MG TABLET PO SCH ×2 (09:56→21:51)
[2022-01-21] MEDS: NIFEdipine E.R. 90 MG TABLET PO SCH (09:56)
[2022-01-21 10:25] LABS: HEMATOCRIT 23.4 % (35.4-49); HEMOGLOBIN 7.5 GM/dL (11.7-16.9); MCH 28.6 pg (25.7-33.7); MEAN CELL VOLUME 89.4 fl (80-96); MEAN PLT VOLUME 8.7 fl (7.5-11.1); PLATELET COUNT 97 10^3/uL (134-434); RBC 2.62 M/mm3 (4.00-5.60); RDW 18.8 % (11.9-15.9); WHITE BLOOD COUNT 4.5 K/mm3 (4.0-10.0)
[2022-01-21 10:45] LABS: ALBUMIN 2.4 g/dl (3.4-5.0); BLOOD UREA NITROGEN 43.4 mg/dL (7-18); CALCIUM 7.9 mg/dL (8.5-10.1)
[2022-01-21 10:48] LABS: CREATININE 4.4 mg/dL (0.55-1.3)
[2022-01-21 10:50] LABS: BILIRUBIN,TOTAL 0.4 mg/dL (0.2-1); TOT PROT 5.5 g/dl (6.4-8.2)
[2022-01-21 11:15] LABS: ANISOCYTOSIS 2+; MACROCYTOSIS 0; PLATELET ESTIMATE DECREASED
[2022-01-21] MEDS: BACITRACIN 15 GM TUBE TOPICAL OINTMENT TP SCH (12:06)
[2022-01-21] MEDS: OLANZapine 5 MG TABLET PO SCH (21:51)
[2022-01-21] MEDS: ATORVASTATIN CA 80 MG TABLET (FP) PO SCH (21:51)
[2022-01-22] MEDS: CALCIUM 500MG/VIT-D 200 UNITS COMBO TABLET (FP) PO SCH (07:03)
[2022-01-22] MEDS: PANTOPRAZOLE 40 MG TABLET PO SCH ×2 (10:06→21:34)
[2022-01-22] MEDS: NIFEdipine E.R. 90 MG TABLET PO SCH (10:06)
[2022-01-22] MEDS: metoPROLOL SUCCINATE 25 MG TAB.SR.24H (FP) PO SCH (10:06)
[2022-01-22] MEDS: CALCITRIOL 0.25 MCG CAPSULE (FP) PO SCH (10:06)
[2022-01-22] MEDS: BACITRACIN 15 GM TUBE TOPICAL OINTMENT TP SCH (10:06)
[2022-01-22] MEDS: FERROUS SO4 325 MG TABLET (FP) PO SCH ×2 (10:06→21:34)
[2022-01-22] MEDS: APIXABAN 5 MG TABLET PO SCH ×2 (10:06→21:34)
[2022-01-22] MEDS: TAMSULOSIN HCL 0.4 MG CAP PO SCH (10:06)
[2022-01-22] MEDS ORDERED: SODIUM CHLORIDE 250 ML IV PRN (12:11)
[2022-01-22] MEDS ORDERED: EPOETIN ALFA-EPBX 10,000 UNIT/ML VIAL SQ ONE (12:11)
[2022-01-22] MEDS: ATORVASTATIN CA 80 MG TABLET (FP) PO SCH (21:34)
[2022-01-22] MEDS: OLANZapine 5 MG TABLET PO SCH (21:34)
[2022-01-23] MEDS: CALCIUM 500MG/VIT-D 200 UNITS COMBO TABLET (FP) PO SCH (06:45)
[2022-01-23] MEDS: FERROUS SO4 325 MG TABLET (FP) PO SCH ×2 (09:16→21:27)
[2022-01-23] MEDS: NIFEdipine E.R. 90 MG TABLET PO SCH (09:16)
[2022-01-23] MEDS: metoPROLOL SUCCINATE 25 MG TAB.SR.24H (FP) PO SCH (09:16)
[2022-01-23] MEDS: TAMSULOSIN HCL 0.4 MG CAP PO SCH (09:16)
[2022-01-23] MEDS: APIXABAN 5 MG TABLET PO SCH ×2 (09:16→21:27)
[2022-01-23] MEDS: PANTOPRAZOLE 40 MG TABLET PO SCH ×2 (09:16→21:27)
[2022-01-23] MEDS: CALCITRIOL 0.25 MCG CAPSULE (FP) PO SCH (09:16)
[2022-01-23] MEDS ORDERED: EPOETIN ALFA-EPBX 10,000 UNIT, EPOETIN ALFA-EPBX 2,000 UNIT IVPUSH ONE (14:00)
[2022-01-23 14:45] LABS: HEMATOCRIT 18.6 % (35.4-49); MCH 27.7 pg (25.7-33.7); MCHC 30.8 g/dl (32.0-35.9); MEAN CELL VOLUME 89.7 fl (80-96); MEAN PLT VOLUME 8.6 fl (7.5-11.1); PLATELET COUNT 90 10^3/uL (134-434); RBC 2.07 M/mm3 (4.00-5.60); RDW 19.6 % (11.9-15.9); WHITE BLOOD COUNT 2.8 K/mm3 (4.0-10.0)
[2022-01-23 14:54] LABS: HEMOGLOBIN 5.7 GM/dL (11.7-16.9)
[2022-01-23 15:05] LABS: BLOOD UREA NITROGEN 60.1 mg/dL (7-18); CALCIUM 7.4 mg/dL (8.5-10.1)
[2022-01-23 15:08] LABS: PHOSPHOROUS 3.1 mg/dL (2.5-4.9)
[2022-01-23 15:09] LABS: CREATININE 5.2 mg/dL (0.55-1.3)
[2022-01-23 15:10] LABS: BILIRUBIN,TOTAL 0.3 mg/dL (0.2-1); TOT PROT 4.2 g/dl (6.4-8.2)
[2022-01-23 15:11] LABS: ALBUMIN 1.8 g/dl (3.4-5.0)
[2022-01-23] MEDS: BACITRACIN 15 GM TUBE TOPICAL OINTMENT TP SCH (17:19)
[2022-01-23] MEDS ORDERED: IRON SUCROSE INJECTION 100 MG in SODIUM CHLORIDE 95 ML IVPB ONE (17:30)
[2022-01-23] MEDS: ATORVASTATIN CA 80 MG TABLET (FP) PO SCH (21:27)
[2022-01-23] MEDS: OLANZapine 5 MG TABLET PO SCH (21:27)
[2022-01-24] MEDS: CALCIUM 500MG/VIT-D 200 UNITS COMBO TABLET (FP) PO SCH (06:07)
[2022-01-24] MEDS: FERROUS SO4 325 MG TABLET (FP) PO SCH ×2 (10:09→21:41)
[2022-01-24] MEDS: CALCITRIOL 0.25 MCG CAPSULE (FP) PO SCH (10:09)
[2022-01-24] MEDS: PANTOPRAZOLE 40 MG TABLET PO SCH ×2 (10:09→21:40)
[2022-01-24] MEDS: TAMSULOSIN HCL 0.4 MG CAP PO SCH (10:09)
[2022-01-24] MEDS: APIXABAN 5 MG TABLET PO SCH (10:09)
[2022-01-24] MEDS: NIFEdipine E.R. 90 MG TABLET PO SCH (10:10)
[2022-01-24] MEDS: metoPROLOL SUCCINATE 25 MG TAB.SR.24H (FP) PO SCH (10:10)
[2022-01-24] MEDS: BACITRACIN 15 GM TUBE TOPICAL OINTMENT TP SCH (10:17)
[2022-01-24] MEDS ORDERED: SODIUM CHLORIDE 250 ML IV PRN (13:59)
[2022-01-24] MEDS: ATORVASTATIN CA 80 MG TABLET (FP) PO SCH (21:41)
[2022-01-24] MEDS: OLANZapine 5 MG TABLET PO SCH (21:41)
[2022-01-25] MEDS: CALCIUM 500MG/VIT-D 200 UNITS COMBO TABLET (FP) PO SCH (06:04)
[2022-01-25] MEDS: FERROUS SO4 325 MG TABLET (FP) PO SCH ×2 (09:37→23:21)
[2022-01-25] MEDS: PANTOPRAZOLE 40 MG TABLET PO SCH ×2 (09:37→23:24)
[2022-01-25] MEDS: CALCITRIOL 0.25 MCG CAPSULE (FP) PO SCH (09:37)
[2022-01-25] MEDS: metoPROLOL SUCCINATE 25 MG TAB.SR.24H (FP) PO SCH (09:37)
[2022-01-25] MEDS: NIFEdipine E.R. 90 MG TABLET PO SCH (09:37)
[2022-01-25] MEDS: TAMSULOSIN HCL 0.4 MG CAP PO SCH (09:37)
[2022-01-25] MEDS: BACITRACIN 15 GM TUBE TOPICAL OINTMENT TP SCH (09:38)
[2022-01-25 10:14] LABS: HEMOGLOBIN 10.3 GM/dL (11.7-16.9); MCH 28.5 pg (25.7-33.7); MCHC 32.3 g/dl (32.0-35.9); MEAN CELL VOLUME 88.3 fl (80-96); MEAN PLT VOLUME 8.1 fl (7.5-11.1); PLATELET COUNT 88 10^3/uL (134-434); RBC 3.63 M/mm3 (4.00-5.60); RDW 18.7 % (11.9-15.9); WHITE BLOOD COUNT 3.8 K/mm3 (4.0-10.0)
[2022-01-25 10:55] LABS: MAGNESIUM 1.9 mg/dL (1.8-2.4)
[2022-01-25 10:58] LABS: BLOOD UREA NITROGEN 48.8 mg/dL (7-18); CALCIUM 7.8 mg/dL (8.5-10.1); CREATININE 5.1 mg/dL (0.55-1.3)
[2022-01-25 11:00] LABS: PHOSPHOROUS 3.6 mg/dL (2.5-4.9); TOT PROT 5.6 g/dl (6.4-8.2)
[2022-01-25 11:04] LABS: ALBUMIN 2.4 g/dl (3.4-5.0); BILIRUBIN,TOTAL 0.5 mg/dL (0.2-1)
[2022-01-25] MEDS ORDERED: EPOETIN ALFA-EPBX 20,000 UNIT/ML VIAL IVPUSH ONE (13:59)
[2022-01-25] MEDS ORDERED: IRON SUCROSE INJECTION 100 MG in SODIUM CHLORIDE 95 ML IVPB ONE (14:00)
[2022-01-25] MEDS: ATORVASTATIN CA 80 MG TABLET (FP) PO SCH (23:23)
[2022-01-25] MEDS: OLANZapine 5 MG TABLET PO SCH (23:24)
[2022-01-26] MEDS: CALCIUM 500MG/VIT-D 200 UNITS COMBO TABLET (FP) PO SCH (06:26)
[2022-01-26] MEDS: TAMSULOSIN HCL 0.4 MG CAP PO SCH (08:19)
[2022-01-26 08:27] LABS: HEMATOCRIT 30.2 % (35.4-49); HEMOGLOBIN 9.7 GM/dL (11.7-16.9); MCH 28.4 pg (25.7-33.7); MEAN CELL VOLUME 88.7 fl (80-96); MEAN PLT VOLUME 8.1 fl (7.5-11.1); PLATELET COUNT 65 10^3/uL (134-434); RBC 3.41 M/mm3 (4.00-5.60); RDW 18.3 % (11.9-15.9); WHITE BLOOD COUNT 3.7 K/mm3 (4.0-10.0)
[2022-01-26 09:02] LABS: ALBUMIN 2.2 g/dl (3.4-5.0); BLOOD UREA NITROGEN 31.5 mg/dL (7-18); MAGNESIUM 1.9 mg/dL (1.8-2.4)
[2022-01-26 09:06] LABS: BILIRUBIN,TOTAL 0.7 mg/dL (0.2-1)
[2022-01-26 09:07] LABS: TOT PROT 5.3 g/dl (6.4-8.2)
[2022-01-26] MEDS: FERROUS SO4 325 MG TABLET (FP) PO SCH ×2 (09:26→21:29)
[2022-01-26] MEDS: metoPROLOL SUCCINATE 25 MG TAB.SR.24H (FP) PO SCH (09:26)
[2022-01-26] MEDS: BACITRACIN 15 GM TUBE TOPICAL OINTMENT TP SCH (09:26)
[2022-01-26] MEDS: CALCITRIOL 0.25 MCG CAPSULE (FP) PO SCH (09:26)
[2022-01-26] MEDS: NIFEdipine E.R. 90 MG TABLET PO SCH (09:26)
[2022-01-26] MEDS: PANTOPRAZOLE 40 MG TABLET PO SCH ×2 (09:26→21:29)
[2022-01-26] MEDS: APIXABAN 5 MG TABLET PO SCH ×2 (09:26→21:29)
[2022-01-26] MEDS: ATORVASTATIN CA 80 MG TABLET (FP) PO SCH (21:29)
[2022-01-26] MEDS: OLANZapine 5 MG TABLET PO SCH (21:29)
[2022-01-27] MEDS: CALCIUM 500MG/VIT-D 200 UNITS COMBO TABLET (FP) PO SCH (06:25)
[2022-01-27] MEDS: PANTOPRAZOLE 40 MG TABLET PO SCH ×2 (09:45→21:52)
[2022-01-27] MEDS: metoPROLOL SUCCINATE 25 MG TAB.SR.24H (FP) PO SCH (09:45)
[2022-01-27] MEDS: FERROUS SO4 325 MG TABLET (FP) PO SCH ×2 (09:45→21:53)
[2022-01-27] MEDS: APIXABAN 5 MG TABLET PO SCH ×2 (09:45→21:53)
[2022-01-27] MEDS: NIFEdipine E.R. 90 MG TABLET PO SCH (09:45)
[2022-01-27] MEDS: CALCITRIOL 0.25 MCG CAPSULE (FP) PO SCH (09:45)
[2022-01-27] MEDS: TAMSULOSIN HCL 0.4 MG CAP PO SCH (09:45)
[2022-01-27] MEDS ORDERED: SODIUM CHLORIDE 250 ML IV PRN (10:55)
[2022-01-27] MEDS ORDERED: EPOETIN ALFA-EPBX 20,000 UNIT/ML VIAL SQ ONE (12:00)
[2022-01-27] MEDS: BACITRACIN 15 GM TUBE TOPICAL OINTMENT TP SCH (14:20)
[2022-01-27 18:02] LABS: BLOOD UREA NITROGEN 42.1 mg/dL (7-18); CALCIUM 7.7 mg/dL (8.5-10.1)
[2022-01-27 18:05] LABS: HEMATOCRIT 29.4 % (35.4-49); HEMOGLOBIN 9.1 GM/dL (11.7-16.9); MCH 28.1 pg (25.7-33.7); MEAN CELL VOLUME 90.6 fl (80-96); PLATELET COUNT 68 10^3/uL (134-434); RBC 3.24 M/mm3 (4.00-5.60); RDW 19.1 % (11.9-15.9); WHITE BLOOD COUNT 3.6 K/mm3 (4.0-10.0)
[2022-01-27 18:06] LABS: CREATININE 4.8 mg/dL (0.55-1.3)
[2022-01-27] MEDS: ATORVASTATIN CA 80 MG TABLET (FP) PO SCH (21:52)
[2022-01-27] MEDS: OLANZapine 5 MG TABLET PO SCH (21:53)
[2022-01-28] MEDS: CALCIUM 500MG/VIT-D 200 UNITS COMBO TABLET (FP) PO SCH (06:35)
[2022-01-28] MEDS: metoPROLOL SUCCINATE 25 MG TAB.SR.24H (FP) PO SCH (09:57)
[2022-01-28] MEDS: PANTOPRAZOLE 40 MG TABLET PO SCH ×2 (09:57→21:28)
[2022-01-28] MEDS: FERROUS SO4 325 MG TABLET (FP) PO SCH ×2 (09:57→21:28)
[2022-01-28] MEDS: NIFEdipine E.R. 90 MG TABLET PO SCH (09:57)
[2022-01-28] MEDS: TAMSULOSIN HCL 0.4 MG CAP PO SCH (09:57)
[2022-01-28] MEDS: APIXABAN 5 MG TABLET PO SCH ×2 (09:57→21:28)
[2022-01-28] MEDS: CALCITRIOL 0.25 MCG CAPSULE (FP) PO SCH (09:57)
[2022-01-28] MEDS: BACITRACIN 15 GM TUBE TOPICAL OINTMENT TP SCH (10:04)
[2022-01-28] MEDS: OLANZapine 5 MG TABLET PO SCH (21:28)
[2022-01-28] MEDS: ATORVASTATIN CA 80 MG TABLET (FP) PO SCH (21:28)
[2022-01-29] MEDS: CALCIUM 500MG/VIT-D 200 UNITS COMBO TABLET (FP) PO SCH (06:41)
[2022-01-29] MEDS: FERROUS SO4 325 MG TABLET (FP) PO SCH ×2 (09:10→22:52)
[2022-01-29] MEDS: APIXABAN 5 MG TABLET PO SCH ×2 (09:10→22:52)
[2022-01-29] MEDS: CALCITRIOL 0.25 MCG CAPSULE (FP) PO SCH (09:10)
[2022-01-29] MEDS: TAMSULOSIN HCL 0.4 MG CAP PO SCH (09:10)
[2022-01-29] MEDS: PANTOPRAZOLE 40 MG TABLET PO SCH ×2 (09:11→22:52)
[2022-01-29] MEDS: NIFEdipine E.R. 90 MG TABLET PO SCH (09:11)
[2022-01-29] MEDS: metoPROLOL SUCCINATE 25 MG TAB.SR.24H (FP) PO SCH (09:11)
[2022-01-29] MEDS ORDERED: SODIUM CHLORIDE 250 ML IV PRN (12:41)
[2022-01-29] MEDS ORDERED: EPOETIN ALFA-EPBX 20,000 UNIT/ML VIAL IVPUSH ONE (13:00)
[2022-01-29] MEDS: BACITRACIN 15 GM TUBE TOPICAL OINTMENT TP SCH (14:16)
[2022-01-29] MEDS: ATORVASTATIN CA 80 MG TABLET (FP) PO SCH (22:52)
[2022-01-29] MEDS: OLANZapine 5 MG TABLET PO SCH (22:52)
[2022-01-30] MEDS: CALCIUM 500MG/VIT-D 200 UNITS COMBO TABLET (FP) PO SCH (06:36)
[2022-01-30] MEDS: APIXABAN 5 MG TABLET PO SCH ×2 (10:00→22:45)
[2022-01-30] MEDS ORDERED: EPOETIN ALFA-EPBX 20,000 UNIT/ML VIAL SQ ONE (12:41)
[2022-01-30] MEDS ORDERED: IRON SUCROSE INJECTION 100 MG in SODIUM CHLORIDE 95 ML IVPB ONE (12:41)
[2022-01-30] MEDS ORDERED: EPOETIN ALFA-EPBX 20,000 UNIT/ML VIAL IVPUSH ONE (13:00)
[2022-01-30 16:11] LABS: CALCIUM 7.8 mg/dL (8.5-10.1)
[2022-01-30 16:12] LABS: BLOOD UREA NITROGEN 52.9 mg/dL (7-18)
[2022-01-30 16:15] LABS: CREATININE 6.2 mg/dL (0.55-1.3)
[2022-01-30 16:17] LABS: HEMATOCRIT 31.2 % (35.4-49); HEMOGLOBIN 9.8 GM/dL (11.7-16.9); MCH 28.3 pg (25.7-33.7); MCHC 31.3 g/dl (32.0-35.9); MEAN CELL VOLUME 90.5 fl (80-96); MEAN PLT VOLUME 8.7 fl (7.5-11.1); PLATELET COUNT 79 10^3/uL (134-434); RBC 3.44 M/mm3 (4.00-5.60); RDW 19.8 % (11.9-15.9); WHITE BLOOD COUNT 3.5 K/mm3 (4.0-10.0)
[2022-01-30] MEDS: TAMSULOSIN HCL 0.4 MG CAP PO SCH (17:09)
[2022-01-30] MEDS: NIFEdipine E.R. 90 MG TABLET PO SCH ×2 (17:10→17:11)
[2022-01-30] MEDS: PANTOPRAZOLE 40 MG TABLET PO SCH ×2 (17:12→22:45)
[2022-01-30] MEDS: FERROUS SO4 325 MG TABLET (FP) PO SCH ×2 (17:12→22:44)
[2022-01-30] MEDS: CALCITRIOL 0.25 MCG CAPSULE (FP) PO SCH (17:12)
[2022-01-30] MEDS: metoPROLOL SUCCINATE 25 MG TAB.SR.24H (FP) PO SCH (17:13)
[2022-01-30] MEDS: BACITRACIN 15 GM TUBE TOPICAL OINTMENT TP SCH (17:15)
[2022-01-30] MEDS: OLANZapine 5 MG TABLET PO SCH (22:44)
[2022-01-30] MEDS: ATORVASTATIN CA 80 MG TABLET (FP) PO SCH (22:45)
[2022-01-31] MEDS: CALCIUM 500MG/VIT-D 200 UNITS COMBO TABLET (FP) PO SCH (06:39)
[2022-01-31] MEDS: metoPROLOL SUCCINATE 25 MG TAB.SR.24H (FP) PO SCH (09:41)
[2022-01-31] MEDS: NIFEdipine E.R. 90 MG TABLET PO SCH (09:41)
[2022-01-31] MEDS: CALCITRIOL 0.25 MCG CAPSULE (FP) PO SCH (09:41)
[2022-01-31] MEDS: PANTOPRAZOLE 40 MG TABLET PO SCH ×2 (09:41→21:18)
[2022-01-31] MEDS: APIXABAN 5 MG TABLET PO SCH ×2 (09:41→21:18)
[2022-01-31] MEDS: FERROUS SO4 325 MG TABLET (FP) PO SCH ×2 (09:41→21:18)
[2022-01-31] MEDS: TAMSULOSIN HCL 0.4 MG CAP PO SCH (09:41)
[2022-01-31] MEDS: BACITRACIN 15 GM TUBE TOPICAL OINTMENT TP SCH (09:46)
[2022-01-31 10:18] LABS: HEMATOCRIT 33.3 % (35.4-49); HEMOGLOBIN 10.6 GM/dL (11.7-16.9); MCH 28.3 pg (25.7-33.7); MCHC 31.8 g/dl (32.0-35.9); MEAN PLT VOLUME 8.8 fl (7.5-11.1); PLATELET COUNT 58 10^3/uL (134-434); RBC 3.75 M/mm3 (4.00-5.60); RDW 18.8 % (11.9-15.9); WHITE BLOOD COUNT 3.9 K/mm3 (4.0-10.0)
[2022-01-31 10:44] LABS: CALCIUM 8.2 mg/dL (8.5-10.1); MAGNESIUM 1.9 mg/dL (1.8-2.4)
[2022-01-31 10:45] LABS: BLOOD UREA NITROGEN 35.7 mg/dL (7-18)
[2022-01-31 10:48] LABS: CREATININE 4.8 mg/dL (0.55-1.3); PHOSPHOROUS 3.4 mg/dL (2.5-4.9)
[2022-01-31 10:49] LABS: BILIRUBIN,TOTAL 0.4 mg/dL (0.2-1); TOT PROT 6.2 g/dl (6.4-8.2)
[2022-01-31 10:57] LABS: ALBUMIN 2.8 g/dl (3.4-5.0)
[2022-01-31] MEDS: ATORVASTATIN CA 80 MG TABLET (FP) PO SCH (21:18)
[2022-01-31] MEDS: OLANZapine 5 MG TABLET PO SCH (21:18)
[2022-02-01] MEDS: CALCIUM 500MG/VIT-D 200 UNITS COMBO TABLET (FP) PO SCH (06:56)
[2022-02-01] MEDS ORDERED: EPOETIN ALFA-EPBX 20,000 UNIT/ML VIAL SQ ONE (09:30)
[2022-02-01] MEDS ORDERED: SODIUM CHLORIDE 250 ML IV PRN (09:30)
[2022-02-01] MEDS: TAMSULOSIN HCL 0.4 MG CAP PO SCH (09:58)
[2022-02-01] MEDS: BACITRACIN 15 GM TUBE TOPICAL OINTMENT TP SCH (09:58)
[2022-02-01] MEDS: NIFEdipine E.R. 90 MG TABLET PO SCH ×2 (09:59→12:40)
[2022-02-01] MEDS: FERROUS SO4 325 MG TABLET (FP) PO SCH (09:59)
[2022-02-01] MEDS: APIXABAN 5 MG TABLET PO SCH (09:59)
[2022-02-01] MEDS: PANTOPRAZOLE 40 MG TABLET PO SCH (10:00)
[2022-02-01] MEDS ORDERED: IRON SUCROSE INJECTION 100 MG in SODIUM CHLORIDE 95 ML IVPB ONE (10:00)
[2022-02-01] MEDS: CALCITRIOL 0.25 MCG CAPSULE (FP) PO SCH (10:04)
[2022-02-01 11:04] LABS: HEMATOCRIT 31.6 % (35.4-49); MCH 28.2 pg (25.7-33.7); MCHC 31.6 g/dl (32.0-35.9); MEAN CELL VOLUME 89.1 fl (80-96); MEAN PLT VOLUME 8.9 fl (7.5-11.1); PLATELET COUNT 67 10^3/uL (134-434); RBC 3.55 M/mm3 (4.00-5.60); RDW 18.6 % (11.9-15.9); WHITE BLOOD COUNT 3.7 K/mm3 (4.0-10.0)
[2022-02-01 11:34] LABS: ALBUMIN 2.6 g/dl (3.4-5.0); BLOOD UREA NITROGEN 48.3 mg/dL (7-18); CALCIUM 7.6 mg/dL (8.5-10.1)
[2022-02-01 11:37] LABS: CREATININE 5.7 mg/dL (0.55-1.3)
[2022-02-01 11:39] LABS: BILIRUBIN,TOTAL 0.4 mg/dL (0.2-1); TOT PROT 5.7 g/dl (6.4-8.2)
[2022-02-01] MEDS ORDERED: HEPARIN NA (PORCINE) 5,000 UNITS/ML 1ML VIAL IVPUSH ONE (12:14)
[2022-02-01] MEDS: metoPROLOL SUCCINATE 25 MG TAB.SR.24H (FP) PO SCH (12:39)
[2022-02-01 14:47] VITALS: BP 166/93; PULSE 60; RESP 20; TEMP 98.3
[2022-02-01] MEDS ORDERED: metoPROLOL SUCCINATE 25 MG TAB.SR.24H (FP) PO SCH (15:16)
== END 2022-02-01 19:46 | disposition home or self-care (01) | DRG 383 ==
LOC: JER 09:05 → JERBED 11:27 → J4S 11-18 02:43 → J8W 12-06 23:31 → J4S 01-05 02:22 → J8W 01-19 11:51
PROVIDERS: ADMIT Internal Medicine
PROC: 30233N1 Transfusion of Nonautologous Red Blood Cells into Peripheral Vein, Percutaneous Approach (ICD-10-PCS; 2021-11-17)
PROC: 0X9C0ZZ Drainage of Left Elbow Region, Open Approach (ICD-10-PCS; 2021-11-19)
PROC: 0JB70ZZ Excision of Back Subcutaneous Tissue and Fascia, Open Approach (ICD-10-PCS; principal; 2021-11-19 13:00)
PROC: 06HY33Z Insertion of Infusion Device into Lower Vein, Percutaneous Approach (ICD-10-PCS; 2021-11-22)
PROC: 06HY33Z Insertion of Infusion Device into Lower Vein, Percutaneous Approach (ICD-10-PCS; 2021-11-24)
PROC: 2W15X6Z Compression of Back using Pressure Dressing (ICD-10-PCS; 2021-11-27)
PROC: 05HM33Z Insertion of Infusion Device into Right Internal Jugular Vein, Percutaneous Approach (ICD-10-PCS; 2021-11-30)
PROC: B513ZZA Fluoroscopy of Right Jugular Veins, Guidance (ICD-10-PCS; 2021-11-30)
PROC: 0Y900ZZ Drainage of Right Buttock, Open Approach (ICD-10-PCS; 2021-12-07)
PROC: 05HM33Z Insertion of Infusion Device into Right Internal Jugular Vein, Percutaneous Approach (ICD-10-PCS; 2022-01-04)
PROC: B513ZZA Fluoroscopy of Right Jugular Veins, Guidance (ICD-10-PCS; 2022-01-04)
PROC: XW033E5 Introduction of Remdesivir Anti-infective into Peripheral Vein, Percutaneous Approach, New Technology Group 5 (ICD-10-PCS; 2022-01-11)
PROC: 5A1D70Z Performance of Urinary Filtration, Intermittent, Less than 6 Hours Per Day (ICD-10-PCS; 2022-02-01)
DX: L02.212 Cutaneous abscess of back [any part, except buttock and flank] (principal); U07.1 COVID-19; G93.49 Other encephalopathy; I47.20 Ventricular tachycardia, unspecified; I96 Gangrene, not elsewhere classified; N17.9 Acute kidney failure, unspecified; I12.0 Hypertensive chronic kidney disease with stage 5 chronic kidney disease or end stage renal disease; D61.818 Other pancytopenia; I82.C11 Acute embolism and thrombosis of right internal jugular vein; E83.51 Hypocalcemia; E87.21 Acute metabolic acidosis; E88.09 Other disorders of plasma-protein metabolism, not elsewhere classified; F13.20 Sedative, hypnotic or anxiolytic dependence, uncomplicated; G25.3 Myoclonus; G45.9 Transient cerebral ischemic attack, unspecified; I47.1 Supraventricular tachycardia; I48.0 Paroxysmal atrial fibrillation; R18.8 Other ascites; D50.0 Iron deficiency anemia secondary to blood loss (chronic); D53.9 Nutritional anemia, unspecified; D63.1 Anemia in chronic kidney disease; D72.829 Elevated white blood cell count, unspecified; E78.5 Hyperlipidemia, unspecified; F13.239 Sedative, hypnotic or anxiolytic dependence with withdrawal, unspecified; F17.210 Nicotine dependence, cigarettes, uncomplicated; I12.9 Hypertensive chronic kidney disease with stage 1 through stage 4 chronic kidney disease, or unspecified chronic kidney disease; K21.9 Gastro-esophageal reflux disease without esophagitis; L02.414 Cutaneous abscess of left upper limb; N18.9 Chronic kidney disease, unspecified; N40.0 Benign prostatic hyperplasia without lower urinary tract symptoms; R25.3 Fasciculation; R41.0 Disorientation, unspecified; R44.3 Hallucinations, unspecified; R45.1 Restlessness and agitation; I25.119 Atherosclerotic heart disease of native coronary artery with unspecified angina pectoris
CPT/HCPCS: 0241U-QW; 36415; 36430; 70450-TC; 70496-TC; 70498-TC; 71045-TC-FY; 71046-TC-FY; 73070-TC-LT-FY; 76000-TC-FY; 76775-TC; 76856-TC; 80048; 80053; 80307; 81003; 82272; 82310; 82436; 82550; 82553; 82570; 82607; 82728; 82746; 82962; 83010; 83520; 83540; 83550; 83605; 83615; 83735; 83883; 83970; 84100; 84133; 84155; 84165; 84300; 84484; 85025; 85027; 85045; 85384; 85610; 85651; 85730; 86038; 86140; 86160; 86225; 86256; 86705; 86708; 86803; 86850; 86880; 86900; 86901; 86922; 87040; 87070; 87086; 87186; 87205; 87340; 87389; 87517; 87522; 88305-TC; 93005; 93010; 93306-TC; 93880-TC; 93971; 93986; 94010; 94640; 94760; 97116-GP; 97161-GP; 99285-25; C1750; C9399; C9803-CS; G0480; J0878; J1644; J1756; P9058; Q5106; U0003; U0005

== ENCOUNTER 2022-10-05 10:54 | Inpatient (IN) | payer OTHER ==
[2022-10-05] MEDS ORDERED: PIPERACILLIN/TAZOB 4.5 GM 4.5 GM in DEXTROSE 5%-WATER - 100 ML IVPB ONE (11:42)
[2022-10-05] MEDS ORDERED: VANCOMYCIN 1,000 MG in DEXTROSE 5%-WATER - 250 ML IVPB ONE (11:42)
[2022-10-05] MEDS ORDERED: PIPERACILLIN/TAZOB 4.5 GM 4.5 GM/100 ML BAG IVPB ONE (12:00)
[2022-10-05] MEDS ORDERED: VANCOMYCIN/WATER FOR INJ (PEG) 1,000 MG/200 ML BAG IVPB ONE ×2 (12:00)
[2022-10-05 12:06] LABS: HEMATOCRIT 36.5 % (35.4-49); MCH 30.5 pg (25.7-33.7); MCHC 32.8 g/dl (32.0-35.9); MEAN PLT VOLUME 10.1 fl (7.5-11.1); PLATELET COUNT 98 10^3/uL (134-434); RBC 3.92 M/mm3 (4.00-5.60); RDW 15.8 % (11.9-15.9); VENOUS BASE EXCESS -6.5 mmol/L (-2-2); VENOUS O2 SATURATION 82.4 % (70-80); VENOUS PCO2 33.9 mmHg (38-52); VENOUS PH 7.346 (7.310-7.410); WHITE BLOOD COUNT 17.9 K/mm3 (4.0-10.0)
[2022-10-05 12:16] LABS: INR 1.16 (0.83-1.09); PROTHROMBIN TIME (PATIENT) 13.4 SEC (9.7-13.0)
[2022-10-05 12:20] LABS: POTASSIUM 4.5 mmol/L (3.5-5.1)
[2022-10-05 12:24] LABS: ALBUMIN 3.4 g/dl (3.4-5.0); BLOOD UREA NITROGEN 53.5 mg/dL (7-18)
[2022-10-05 12:27] LABS: CREATININE 7.1 mg/dL (0.55-1.3); PHOSPHOROUS 5.7 mg/dL (2.5-4.9)
[2022-10-05 12:28] LABS: TOT PROT 7.4 g/dl (6.4-8.2)
[2022-10-05 13:22] LABS: ANISOCYTOSIS 2+; MACROCYTOSIS 0; OVALOCYTE 2+; TEAR DROP CELLS 1+
[2022-10-05 18:16] VITALS: BMI 23.4
[2022-10-05] MEDS: PIPERACILLIN/TAZOB 2.25 GM 2.25 GM in DEXTROSE 5%-WATER - 50 ML IVPB SCH (18:55)
[2022-10-05] MEDS: HEPARIN NA (PORCINE) 5,000 UNITS/ML 1ML VIAL SQ SCH (22:47)
[2022-10-06] MEDS: PIPERACILLIN/TAZOB 2.25 GM 2.25 GM in DEXTROSE 5%-WATER - 50 ML IVPB SCH ×2 (02:41→09:55)
[2022-10-06 08:15] LABS: CHLORIDE 101 mmol/L (98-107); POTASSIUM 4.1 mmol/L (3.5-5.1); SODIUM 137 mmol/L (136-145)
[2022-10-06 08:16] LABS: CALCIUM 8.9 mg/dL (8.5-10.1)
[2022-10-06 08:17] LABS: ANION GAP 20 MMOL/L (8-16); BASO % 0.4 % (0-2.0); CO2 17 mmol/L (21-32); EOS % 1.5 % (0-4.5); GLUCOSE,RANDOM 150 mg/dL (74-106); HEMATOCRIT 36.8 % (35.4-49); MAGNESIUM 2.1 mg/dL (1.8-2.4); MCHC 32.5 g/dl (32.0-35.9); MEAN CELL VOLUME 92.3 fl (80-96); MONO % 6.8 % (3.8-10.2); NEUT % 86.3 % (42.8-82.8); PLATELET COUNT 79 10^3/uL (134-434); RBC 3.99 M/mm3 (4.00-5.60); WHITE BLOOD COUNT 11.1 K/mm3 (4.0-10.0)
[2022-10-06 08:19] LABS: PHOSPHOROUS 6.8 mg/dL (2.5-4.9); SGOT/AST 22 U/L (15-37); SGPT/ALT 28 U/L (13-61)
[2022-10-06 08:22] LABS: BILIRUBIN,TOTAL 0.8 mg/dL (0.2-1); TOT PROT 6.6 g/dl (6.4-8.2)
[2022-10-06 08:23] LABS: ALK PHOS 53 U/L (45-117); BLOOD UREA NITROGEN 81.3 mg/dL (7-18); CREATININE 8.8 mg/dL (0.55-1.3)
[2022-10-06] MEDS: HEPARIN NA (PORCINE) 5,000 UNITS/ML 1ML VIAL SQ SCH ×2 (09:57→22:28)
[2022-10-06] MEDS ORDERED: VANCOMYCIN/WATER FOR INJ (PEG) 1,000 MG/200 ML BAG IVPB ONE (12:00)
[2022-10-06] MEDS: CEFAZOLIN 1 GM in DEXTROSE 5%-WATER - 50 ML IVPB SCH (13:33)
[2022-10-06 20:12] LABS: EPI CELLS >36 /uL (0-25.1); HYALINE CASTS 5 /uL (0-3.1); URINE APPEARANCE CLEAR; URINE BACTERIA 15 /uL (0-1359); URINE BILIRUBIN NEGATIVE (NEGATIVE); URINE COLOR YELLOW; URINE GLUCOSE (UA) 1+ (NEGATIVE); URINE KETONE NEGATIVE (NEGATIVE); URINE LEUK ESTERASE 1+ (NEGATIVE); URINE NITRITE NEGATIVE (NEGATIVE); URINE PROTEIN 3+ (NEGATIVE); URINE RBC 15 /uL (0-23.9); URINE UROBILINOGEN 0.2 mg/dL (0.2-1.0); URINE WBC 322 /uL (0-25.8)
[2022-10-07] MEDS: CEFAZOLIN 1 GM in DEXTROSE 5%-WATER - 50 ML IVPB SCH (09:20)
[2022-10-07] MEDS: HEPARIN NA (PORCINE) 5,000 UNITS/ML 1ML VIAL SQ SCH ×2 (09:20→21:18)
[2022-10-08 07:52] LABS: HEMATOCRIT 32.3 % (35.4-49); HEMOGLOBIN 10.8 GM/dL (11.7-16.9); MCH 30.7 pg (25.7-33.7); MCHC 33.5 g/dl (32.0-35.9); MEAN CELL VOLUME 91.5 fl (80-96); MEAN PLT VOLUME 10.5 fl (7.5-11.1); PLATELET COUNT 85 10^3/uL (134-434); RBC 3.53 M/mm3 (4.00-5.60); RDW 15.8 % (11.9-15.9); WHITE BLOOD COUNT 5.5 K/mm3 (4.0-10.0)
[2022-10-08 08:02] LABS: INR 0.92 (0.83-1.09); PROTHROMBIN TIME (PATIENT) 10.7 SEC (9.7-13.0)
[2022-10-08 08:03] LABS: ACTIVATED PTT 31.2 SECONDS (25.2-36.5)
[2022-10-08 08:09] LABS: CHLORIDE 98 mmol/L (98-107); POTASSIUM 4.8 mmol/L (3.5-5.1); SODIUM 133 mmol/L (136-145)
[2022-10-08 08:16] LABS: ALBUMIN 2.8 g/dl (3.4-5.0); ANION GAP 22 MMOL/L (8-16); CALCIUM 8.6 mg/dL (8.5-10.1); CO2 13 mmol/L (21-32); GLUCOSE,RANDOM 183 mg/dL (74-106)
[2022-10-08 08:19] LABS: SGOT/AST 28 U/L (15-37); SGPT/ALT 21 U/L (13-61)
[2022-10-08 08:21] LABS: BILIRUBIN,TOTAL 0.6 mg/dL (0.2-1); TOT PROT 6.4 g/dl (6.4-8.2)
[2022-10-08 08:22] LABS: ALK PHOS 60 U/L (45-117)
[2022-10-08 08:23] LABS: BLOOD UREA NITROGEN 113.9 mg/dL (7-18); CREATININE 12.5 mg/dL (0.55-1.3)
[2022-10-08] MEDS: HEPARIN NA (PORCINE) 5,000 UNITS/ML 1ML VIAL SQ SCH ×2 (09:04→22:37)
[2022-10-08 10:42] LABS: ANISOCYTOSIS 2+; MACROCYTOSIS 0; OVALOCYTE 1+
[2022-10-08] MEDS ORDERED: SODIUM CHLORIDE 250 ML IV PRN (16:55)
[2022-10-08] MEDS ORDERED: EPOETIN ALFA-EPBX 10,000 UNIT/ML VIAL SQ ONE (17:00)
[2022-10-08] MEDS ORDERED: HEPARIN NA (PORCINE) 5,000 UNITS/ML 1ML VIAL IVPUSH ONE (17:00)
[2022-10-08] MEDS: DAPTOMYCIN 500 MG in SODIUM CHLORIDE 50 ML IVPB SCH (17:43)
[2022-10-08 19:27] LABS: HEPATITIS B SURFACE AG CONFIRM CONFIRMED (NONREACTIVE)
[2022-10-09] MEDS ORDERED: HEPARIN NA (PORCINE) 5,000 UNITS/ML 1ML VIAL IVPUSH ONE (00:37)
[2022-10-09] MEDS ORDERED: SODIUM CHLORIDE 250 ML IV PRN (00:37)
[2022-10-09 08:44] LABS: HEMATOCRIT 35.9 % (35.4-49); HEMOGLOBIN 11.9 GM/dL (11.7-16.9); MCH 29.6 pg (25.7-33.7); MCHC 33.2 g/dl (32.0-35.9); MEAN CELL VOLUME 89.3 fl (80-96); MEAN PLT VOLUME 9.4 fl (7.5-11.1); PLATELET COUNT 91 10^3/uL (134-434); RBC 4.02 M/mm3 (4.00-5.60); RDW 15.6 % (11.9-15.9); WHITE BLOOD COUNT 6.2 K/mm3 (4.0-10.0)
[2022-10-09 09:11] LABS: CHLORIDE 99 mmol/L (98-107); POTASSIUM 4.5 mmol/L (3.5-5.1); SODIUM 139 mmol/L (136-145)
[2022-10-09 09:14] LABS: ANION GAP 18 MMOL/L (8-16); CALCIUM 8.3 mg/dL (8.5-10.1); CO2 22 mmol/L (21-32); GLUCOSE,RANDOM 267 mg/dL (74-106)
[2022-10-09 09:17] LABS: SGOT/AST 44 U/L (15-37); SGPT/ALT 25 U/L (13-61)
[2022-10-09 09:19] LABS: BILIRUBIN,TOTAL 1.1 mg/dL (0.2-1); TOT PROT 7.1 g/dl (6.4-8.2)
[2022-10-09 09:20] LABS: ALK PHOS 88 U/L (45-117)
[2022-10-09 09:21] LABS: BLOOD UREA NITROGEN 83.6 mg/dL (7-18); CREATININE 10.2 mg/dL (0.55-1.3)
[2022-10-09] MEDS: metoPROLOL SUCCINATE 25 MG TAB.SR.24H (FP) PO SCH (10:01)
[2022-10-09] MEDS: HEPARIN NA (PORCINE) 5,000 UNITS/ML 1ML VIAL SQ SCH ×2 (10:02→21:25)
[2022-10-09] MEDS ORDERED: ACETAMINOPHEN 325 MG TABLET (FP) PO PRN (13:39)
[2022-10-09] MEDS: ATORVASTATIN CA 80 MG TABLET (FP) PO SCH (21:25)
[2022-10-10] MEDS: HEPARIN NA (PORCINE) 5,000 UNITS/ML 1ML VIAL SQ SCH ×2 (10:27→23:08)
[2022-10-10] MEDS: metoPROLOL SUCCINATE 25 MG TAB.SR.24H (FP) PO SCH (10:27)
[2022-10-10] MEDS: DAPTOMYCIN 500 MG in SODIUM CHLORIDE 50 ML IVPB SCH (19:03)
[2022-10-10] MEDS: ATORVASTATIN CA 80 MG TABLET (FP) PO SCH (23:06)
[2022-10-11] MEDS: metoPROLOL SUCCINATE 25 MG TAB.SR.24H (FP) PO SCH (09:30)
[2022-10-11] MEDS: HEPARIN NA (PORCINE) 5,000 UNITS/ML 1ML VIAL SQ SCH ×2 (09:30→21:21)
[2022-10-11 09:51] LABS: INR 1.01 (0.83-1.09); PROTHROMBIN TIME (PATIENT) 11.7 SEC (9.7-13.0)
[2022-10-11 09:55] LABS: HEMATOCRIT 33.4 % (35.4-49); HEMOGLOBIN 11.4 GM/dL (11.7-16.9); MCH 30.7 pg (25.7-33.7); MCHC 34.1 g/dl (32.0-35.9); MEAN CELL VOLUME 89.9 fl (80-96); MEAN PLT VOLUME 9.4 fl (7.5-11.1); PLATELET COUNT 113 10^3/uL (134-434); RBC 3.72 M/mm3 (4.00-5.60); RDW 15.4 % (11.9-15.9); WHITE BLOOD COUNT 9.3 K/mm3 (4.0-10.0)
[2022-10-11] MEDS ORDERED: NIFEdipine E.R. 90 MG TABLET PO SCH (10:00)
[2022-10-11 10:01] LABS: CHLORIDE 96 mmol/L (98-107); POTASSIUM 4.6 mmol/L (3.5-5.1); SODIUM 134 mmol/L (136-145)
[2022-10-11 10:05] LABS: ALBUMIN 3.2 g/dl (3.4-5.0)
[2022-10-11 10:06] LABS: ANION GAP 16 MMOL/L (8-16); CALCIUM 8.7 mg/dL (8.5-10.1); CO2 22 mmol/L (21-32); GLUCOSE,RANDOM 203 mg/dL (74-106)
[2022-10-11 10:07] LABS: BLOOD UREA NITROGEN 64.8 mg/dL (7-18)
[2022-10-11 10:09] LABS: SGOT/AST 67 U/L (15-37); SGPT/ALT 40 U/L (13-61)
[2022-10-11 10:11] LABS: BILIRUBIN,TOTAL 0.7 mg/dL (0.2-1); TOT PROT 6.7 g/dl (6.4-8.2)
[2022-10-11 10:12] LABS: ALK PHOS 105 U/L (45-117)
[2022-10-11 10:17] LABS: CREATININE 9.2 mg/dL (0.55-1.3)
[2022-10-11] MEDS ORDERED: SODIUM CHLORIDE 250 ML IV PRN (15:19)
[2022-10-11] MEDS: ATORVASTATIN CA 80 MG TABLET (FP) PO SCH (21:21)
[2022-10-12] MEDS ORDERED: ONDANSETRON 4 MG/2 ML VIAL IVPUSH PRN ×2 (07:51→09:09)
[2022-10-12] MEDS ORDERED: PROPOFOL 20 ML ONE (07:59)
[2022-10-12] MEDS ORDERED: MIDAZOLAM HCL 2 MG/2 ML SINGLE DOSE VIAL ONE (07:59)
[2022-10-12] MEDS ORDERED: ceFAZolin SODIUM 1 GM VIAL ONE (07:59)
[2022-10-12] MEDS ORDERED: SODIUM CHLORIDE 1,000 ML IV SCH ×2 (08:00→09:09)
[2022-10-12] MEDS ORDERED: ceFAZolin SODIUM 1 GM VIAL IVPB ONE (08:10)
[2022-10-12] MEDS ORDERED: LIDOCAINE HCL 1%, 10 MG/ML (20ML VIAL) INF ONE ×2 (08:16)
[2022-10-12] MEDS ORDERED: SODIUM CHLORIDE 250 ML IV PRN (09:09)
[2022-10-12] MEDS ORDERED: ACETAMINOPHEN 325 MG TABLET (FP) PO PRN (09:09)
[2022-10-12] MEDS ORDERED: NIFEdipine E.R. 90 MG TABLET PO SCH (10:00)
[2022-10-12] MEDS ORDERED: HEPARIN NA (PORCINE) 5,000 UNITS/ML 1ML VIAL SQ SCH (10:00)
[2022-10-12 11:00] VITALS: RESP 18
[2022-10-12] MEDS ORDERED: VANCOMYCIN/WATER 1,250 MG/250 ML BAG (RESTRICTED TO ID ONLY) IVPB ONE (12:15)
[2022-10-12] MEDS ORDERED: DAPTOMYCIN 500 MG in SODIUM CHLORIDE 50 ML IVPB SCH (16:00)
[2022-10-12 17:09] VITALS: TEMP 98.2
[2022-10-12 17:29] LABS: HEMATOCRIT 29.5 % (35.4-49); HEMOGLOBIN 9.5 GM/dL (11.7-16.9); MCHC 32.3 g/dl (32.0-35.9); MEAN CELL VOLUME 92.8 fl (80-96); MEAN PLT VOLUME 10.1 fl (7.5-11.1); PLATELET COUNT 131 10^3/uL (134-434); RBC 3.18 M/mm3 (4.00-5.60); RDW 15.5 % (11.9-15.9); WHITE BLOOD COUNT 5.9 K/mm3 (4.0-10.0)
[2022-10-12 17:36] LABS: INR 0.99 (0.83-1.09); PROTHROMBIN TIME (PATIENT) 11.5 SEC (9.7-13.0)
[2022-10-12 17:45] LABS: CHLORIDE 93 mmol/L (98-107); POTASSIUM 4.4 mmol/L (3.5-5.1); SODIUM 133 mmol/L (136-145)
[2022-10-12 17:47] LABS: ANION GAP 18 MMOL/L (8-16); BLOOD UREA NITROGEN 81.7 mg/dL (7-18); CO2 22 mmol/L (21-32); GLUCOSE,RANDOM 361 mg/dL (74-106)
[2022-10-12 17:56] LABS: CREATININE 11.1 mg/dL (0.55-1.3)
[2022-10-12 20:13] VITALS: BP 132/62; PULSE 60
[2022-10-12] MEDS ORDERED: ATORVASTATIN CA 80 MG TABLET (FP) PO SCH (22:00)
[2022-10-12] MEDS ORDERED: ATORVASTATIN CA 20 MG TABLET (FP) PO SCH (22:00)
== END 2022-10-12 21:06 | disposition home or self-care (01) | DRG 466 ==
LOC: JER 10:54 → JERBED 11:22 → J7W 18:05 → J5S 10-09 10:54 → J6S 10-10 21:39
PROVIDERS: ADMIT Internal Medicine; ATTEND Internal Medicine
PROC: 05HY33Z Insertion of Infusion Device into Upper Vein, Percutaneous Approach (ICD-10-PCS; 2022-10-08)
PROC: B516ZZA Fluoroscopy of Right Subclavian Vein, Guidance (ICD-10-PCS; 2022-10-12)
PROC: 5A1D70Z Performance of Urinary Filtration, Intermittent, Less than 6 Hours Per Day (ICD-10-PCS; 2022-10-12)
PROC: 0JH63XZ Insertion of Tunneled Vascular Access Device into Chest Subcutaneous Tissue and Fascia, Percutaneous Approach (ICD-10-PCS; principal; 2022-10-12 13:00)
DX: T82.7XXA Infection and inflammatory reaction due to other cardiac and vascular devices, implants and grafts, initial encounter (principal); N18.6 End stage renal disease; D69.6 Thrombocytopenia, unspecified; I12.0 Hypertensive chronic kidney disease with stage 5 chronic kidney disease or end stage renal disease; I48.91 Unspecified atrial fibrillation; R78.81 Bacteremia; B19.20 Unspecified viral hepatitis C without hepatic coma; B95.62 Methicillin resistant Staphylococcus aureus infection as the cause of diseases classified elsewhere; E78.5 Hyperlipidemia, unspecified; Y83.9 Surgical procedure, unspecified as the cause of abnormal reaction of the patient, or of later complication, without mention of misadventure at the time of the procedure; Z99.2 Dependence on renal dialysis
CPT/HCPCS: 0241U-QW; 36415; 71045-TC-FY; 76000-TC-FY; 76700-TC; 80048; 80053; 81003; 82105; 82550; 82803; 83605; 83735; 84100; 85025; 85027; 85610; 85730; 86704; 86705; 86803; 86850; 86900; 86901; 87040; 87070; 87086; 87186; 87340; 87516; 87522; 93005; 93010; 93306-TC; 94760; 99285-25; C1750; G0480; J0878; J1644; Q5106

== ENCOUNTER 2024-03-28 11:25 | Inpatient (IN) | payer OTHER ==
[2024-03-28 12:13] VITALS: BMI 22.6
[2024-03-28 12:42] LABS: BASO % 0.4 % (0-2.0); HEMATOCRIT 37.7 % (35.4-49); HEMOGLOBIN 12.3 GM/dL (11.7-16.9); LYMPH % 3.7 % (8-40); MCH 29.2 pg (25.7-33.7); MCHC 32.5 g/dl (32.0-35.9); MEAN CELL VOLUME 90.1 fl (80-96); MEAN PLT VOLUME 8.2 fl (7.5-11.1); NEUT % 90.9 % (42.8-82.8); PLATELET COUNT 166 10^3/uL (134-434); RBC 4.19 M/mm3 (4.00-5.60); VENOUS BASE EXCESS -3.9 mmol/L (-2-2); VENOUS O2 SATURATION 56.6 % (70-80); VENOUS PCO2 37.8 mmHg (38-52); VENOUS PH 7.363 (7.310-7.410); WHITE BLOOD COUNT 16.2 K/mm3 (4.0-10.0)
[2024-03-28] MEDS ORDERED: ACETAMINOPHEN INJECTION 100 ML ONE (12:45)
[2024-03-28] MEDS ORDERED: VANCOMYCIN 1 GM PREMIX (F) 1 GM/200 ML BAG ONE (12:46)
[2024-03-28] MEDS ORDERED: PIPERACILLIN/TAZOB 4.5 GM 4.5 GM/100 ML BAG IVPB ONE (12:46)
[2024-03-28 12:51] LABS: INR 1.01 (0.83-1.09); PROTHROMBIN TIME (PATIENT) 11.6 SEC (9.7-13.0)
[2024-03-28 12:53] LABS: ACTIVATED PTT 34.6 SECONDS (25.2-36.5)
[2024-03-28] MEDS: ACETAMINOPHEN 1000 MG/100 ML BAG IVPB ONE (12:55)
[2024-03-28] MEDS: SODIUM CHLORIDE 0.9% 500 ML INFUS.BAG IV ONE (12:55)
[2024-03-28 13:06] LABS: POTASSIUM 4.2 mmol/L (3.5-5.1)
[2024-03-28 13:09] LABS: BLOOD UREA NITROGEN 72.3 mg/dL (7-18); CALCIUM 9.3 mg/dL (8.5-10.1)
[2024-03-28 13:12] LABS: CREATININE 6.5 mg/dL (0.55-1.3)
[2024-03-28 13:15] LABS: BILIRUBIN,TOTAL 0.8 mg/dL (0.2-1); TOT PROT 7.1 g/dl (6.4-8.2)
[2024-03-28] MEDS ORDERED: CEFEPIME HCL/D5W 2 GM/50 ML BAG IVPB ONE (13:24)
[2024-03-28 13:25] LABS: EPI CELLS 13 /uL (0-25.1); HYALINE CASTS 0 /uL (0-3.1); PH,URINE 7.5 (5.0-8.0); URINE APPEARANCE CLEAR; URINE BACTERIA 20 /uL (0-1359); URINE BILIRUBIN NEGATIVE (NEGATIVE); URINE COLOR YELLOW; URINE GLUCOSE (UA) 2+ (NEGATIVE); URINE KETONE NEGATIVE (NEGATIVE); URINE LEUK ESTERASE NEGATIVE (NEGATIVE); URINE NITRITE NEGATIVE (NEGATIVE); URINE PROTEIN 3+ (NEGATIVE); URINE RBC 34 /uL (0-23.9); URINE UROBILINOGEN 0.2 mg/dL (0.2-1.0); URINE WBC 23 /uL (0-25.8)
[2024-03-28 13:25] LABS: ERYTHROCYTE SEDIMENTATION RATE 51 mm/hr (0-20)
[2024-03-28] MEDS: PIPERACILLIN/TAZOB 3.375 GM 3.375 GM in DEXTROSE 5%-WATER - 50 ML IVPB ONE (13:27)
[2024-03-28] MEDS: VANCOMYCIN 1,000 MG in DEXTROSE 5%-WATER - 250 ML IVPB ONE (13:48)
[2024-03-28] MEDS: CEFEPIME HCL 2 GM VIAL (RESTRICTED TO ID) IVPB ONE (13:48)
[2024-03-28] MEDS: VANCOMYCIN 1 GM PREMIX (F) 1 GM/200 ML BAG IVPB ONE (14:19)
[2024-03-28] MEDS ORDERED: PIPERACILLIN/TAZOB 2.25 GM 2.25 GM/50 ML BAG IVPB SCH ×3 (14:30→21:00)
[2024-03-28] MEDS: ACETAMINOPHEN 1000 MG/100 ML BAG IVPB PRN (20:48)
[2024-03-28] MEDS: LACTATED RINGERS SOLUTION 1,000 ML/1,000 ML INFUS.BAG IV SCH (22:29)
[2024-03-28] MEDS: PIPERACILLIN/TAZOB 4.5 GM 4.5 GM/100 ML BAG IVPB SCH (22:29)
[2024-03-29] MEDS: LABETALOL HCL 5 MG/1 ML (100MG/20 ML VIAL) IVPUSH PRN (05:27)
[2024-03-29 09:30] LABS: BASO % 0.2 % (0-2.0); EOS % 2.5 % (0-4.5); HEMOGLOBIN 11.1 GM/dL (11.7-16.9); LYMPH % 7.5 % (8-40); MCH 29.3 pg (25.7-33.7); MCHC 32.6 g/dl (32.0-35.9); MEAN PLT VOLUME 8.9 fl (7.5-11.1); MONO % 4.5 % (3.8-10.2); NEUT % 85.3 % (42.8-82.8); PLATELET COUNT 139 10^3/uL (134-434); RBC 3.78 M/mm3 (4.00-5.60); RDW 14.7 % (11.9-15.9); WHITE BLOOD COUNT 12.7 K/mm3 (4.0-10.0)
[2024-03-29 09:47] LABS: POTASSIUM 3.9 mmol/L (3.5-5.1)
[2024-03-29 09:51] LABS: BLOOD UREA NITROGEN 76.3 mg/dL (7-18); CALCIUM 8.4 mg/dL (8.5-10.1)
[2024-03-29 09:55] LABS: CREATININE 7.4 mg/dL (0.55-1.3)
[2024-03-29] MEDS: NIFEdipine E.R 60 MG TABLET PO SCH (09:59)
[2024-03-29] MEDS: HEPARIN NA (PORCINE) 5,000 UNITS/ML 1ML VIAL SQ SCH (21:17)
[2024-03-29] MEDS: hydrALAZINE HCL 10 MG TABLET PO SCH (21:17)
[2024-03-29] MEDS: ATORVASTATIN CA 80 MG TABLET (FP) PO SCH (21:17)
[2024-03-30] MEDS: NIFEdipine E.R. 90 MG TABLET PO SCH (09:49)
[2024-03-30] MEDS: COLLAGENASE CLOSTRIDIUM HIST. 30 GRAMS TUBE TP SCH (13:34)
[2024-03-30] MEDS ORDERED: SODIUM CHLORIDE 250 ML IV PRN (14:18)
[2024-03-31 08:57] LABS: BASO % 0.4 % (0-2.0); HEMATOCRIT 34.2 % (35.4-49); HEMOGLOBIN 11.6 GM/dL (11.7-16.9); LYMPH % 6.9 % (8-40); MCH 30.1 pg (25.7-33.7); MCHC 33.9 g/dl (32.0-35.9); MEAN CELL VOLUME 88.9 fl (80-96); MEAN PLT VOLUME 9.2 fl (7.5-11.1); MONO % 5.7 % (3.8-10.2); PLATELET COUNT 149 10^3/uL (134-434); RBC 3.85 M/mm3 (4.00-5.60); RDW 14.6 % (11.9-15.9)
[2024-03-31 08:58] LABS: INR 1.09 (0.83-1.09); PROTHROMBIN TIME (PATIENT) 12.3 SEC (9.7-13.0)
[2024-03-31 09:10] LABS: CHLORIDE 100 mmol/L (98-107); POTASSIUM 4.7 mmol/L (3.5-5.1); SODIUM 134 mmol/L (136-145)
[2024-03-31 09:13] LABS: ALBUMIN 2.4 g/dl (3.4-5.0); ANION GAP 17 mmol/L (4-13); BLOOD UREA NITROGEN 95.1 mg/dL (7-18); CALCIUM 8.5 mg/dL (8.5-10.1); CO2 17 mmol/L (21-32); MAGNESIUM 2.3 mg/dL (1.8-2.4)
[2024-03-31 09:14] LABS: GLUCOSE,RANDOM 222 mg/dL (74-106)
[2024-03-31 09:16] LABS: SGPT/ALT 41 U/L (13-61)
[2024-03-31 09:17] LABS: SGOT/AST 28 U/L (15-37)
[2024-03-31 09:18] LABS: BILIRUBIN,TOTAL 1.2 mg/dL (0.2-1); TOT PROT 6.5 g/dl (6.4-8.2)
[2024-03-31 09:22] LABS: ALK PHOS 122 U/L (45-117); CREATININE 10.2 mg/dL (0.55-1.3)
[2024-03-31] MEDS ORDERED: HEPARIN NA (PORCINE) 5,000 UNITS/ML 1ML VIAL ONE ×3 (10:42→12:17)
[2024-03-31] MEDS ORDERED: LIDOCAINE HCL 1%, 10 MG/ML (20ML VIAL) ONE ×2 (10:42→10:45)
[2024-03-31] MEDS ORDERED: NITROGLYCERIN 50 MG/10 ML VIAL IVPB ONE (10:45)
[2024-03-31] MEDS ORDERED: ACETAMINOPHEN 500 MG TABLET (FP) PO PRN (11:30)
[2024-03-31] MEDS ORDERED: ONDANSETRON 4 MG/2 ML VIAL IVPUSH PRN ×2 (11:30→13:50)
[2024-03-31] MEDS ORDERED: PROPOFOL 20 ML ONE ×2 (11:35→13:08)
[2024-03-31] MEDS ORDERED: LIDOCAINE HCL 2% 100 MG/5 ML DISP.SYRIN ONE (11:35)
[2024-03-31] MEDS: PIPERACILLIN/TAZOBACTAM 3.375 GM VIAL IVPB ONE ×2 (11:40)
[2024-03-31] MEDS ORDERED: PIPERACILLIN/TAZOBACTAM 3.375 GM VIAL IVPB ONE (11:48)
[2024-03-31] MEDS: LIDOCAINE HCL 1%, 10 MG/ML (20ML VIAL) NR ONE ×2 (11:50)
[2024-03-31] MEDS: HEPARIN NA (PORCINE) 5,000 UNITS/ML 1ML VIAL SQ ONE (12:20)
[2024-03-31] MEDS ORDERED: SODIUM CHLORIDE 250 ML IV PRN (13:50)
[2024-03-31] MEDS ORDERED: LABETALOL HCL 5 MG/1 ML (100MG/20 ML VIAL) IVPUSH PRN (13:50)
[2024-03-31] MEDS: CLOPIDOGREL BISULFATE 75 MG TABLET (FP) PO SCH (17:45)
[2024-03-31] MEDS: ASPIRIN 81 MG CHEWABLE TABLETS PO SCH (17:45)
[2024-03-31] MEDS: ATORVASTATIN CA 80 MG TABLET (FP) PO SCH (21:47)
[2024-03-31] MEDS: hydrALAZINE HCL 10 MG TABLET PO SCH (21:47)
[2024-03-31] MEDS: PIPERACILLIN/TAZOB 4.5 GM 4.5 GM/100 ML BAG IVPB SCH (21:48)
[2024-03-31] MEDS: HEPARIN NA (PORCINE) 5,000 UNITS/ML 1ML VIAL SQ SCH (21:48)
[2024-04-01 09:13] LABS: BASO % 0.8 % (0-2.0); EOS % 2.9 % (0-4.5); HEMATOCRIT 34.9 % (35.4-49); HEMOGLOBIN 11.4 GM/dL (11.7-16.9); LYMPH % 7.1 % (8-40); MCH 29.7 pg (25.7-33.7); MCHC 32.8 g/dl (32.0-35.9); MEAN CELL VOLUME 90.6 fl (80-96); MEAN PLT VOLUME 9.8 fl (7.5-11.1); MONO % 7.2 % (3.8-10.2); PLATELET COUNT 147 10^3/uL (134-434); RBC 3.85 M/mm3 (4.00-5.60); WHITE BLOOD COUNT 9.8 K/mm3 (4.0-10.0)
[2024-04-01] MEDS: NIFEdipine E.R. 90 MG TABLET PO SCH (09:15)
[2024-04-01] MEDS: COLLAGENASE CLOSTRIDIUM HIST. 30 GRAMS TUBE TP SCH (09:26)
[2024-04-01 09:28] LABS: POTASSIUM 3.5 mmol/L (3.5-5.1)
[2024-04-01 09:31] LABS: CALCIUM 8.5 mg/dL (8.5-10.1)
[2024-04-01 09:32] LABS: ALBUMIN 2.3 g/dl (3.4-5.0)
[2024-04-01 09:35] LABS: CREATININE 6.4 mg/dL (0.55-1.3)
[2024-04-01 09:37] LABS: BILIRUBIN,TOTAL 0.6 mg/dL (0.2-1); BLOOD UREA NITROGEN 46.8 mg/dL (7-18); TOT PROT 6.2 g/dl (6.4-8.2)
[2024-04-01] MEDS ORDERED: SODIUM CHLORIDE 250 ML IV PRN (12:34)
[2024-04-01] MEDS: INSULIN ASPART SLIDING SCALE (NOVOLOG) 1 VIAL SQ SCH (17:04)
[2024-04-02] MEDS ORDERED: LABETALOL HCL 20 MG/4 ML VIAL IVPUSH PRN (05:54)
[2024-04-02 09:31] LABS: BASO % 0.3 % (0-2.0); EOS % 2.3 % (0-4.5); HEMATOCRIT 33.4 % (35.4-49); HEMOGLOBIN 10.8 GM/dL (11.7-16.9); LYMPH % 6.8 % (8-40); MCH 29.1 pg (25.7-33.7); MCHC 32.5 g/dl (32.0-35.9); MEAN CELL VOLUME 89.8 fl (80-96); MEAN PLT VOLUME 9.6 fl (7.5-11.1); MONO % 5.9 % (3.8-10.2); NEUT % 84.7 % (42.8-82.8); PLATELET COUNT 143 10^3/uL (134-434); RBC 3.71 M/mm3 (4.00-5.60); RDW 14.8 % (11.9-15.9); WHITE BLOOD COUNT 10.7 K/mm3 (4.0-10.0)
[2024-04-02 09:33] LABS: INR 1.07 (0.83-1.09); PROTHROMBIN TIME (PATIENT) 12.1 SEC (9.7-13.0)
[2024-04-02 11:36] LABS: CHLORIDE 100 mmol/L (98-107); POTASSIUM 3.6 mmol/L (3.5-5.1); SODIUM 136 mmol/L (136-145)
[2024-04-02 11:47] LABS: CALCIUM 8.6 mg/dL (8.5-10.1)
[2024-04-02 11:48] LABS: ALBUMIN 2.2 g/dl (3.4-5.0); ANION GAP 14 mmol/L (4-13); BLOOD UREA NITROGEN 61.2 mg/dL (7-18); CO2 22 mmol/L (21-32); GLUCOSE,RANDOM 126 mg/dL (74-106); MAGNESIUM 2.1 mg/dL (1.8-2.4)
[2024-04-02 11:50] LABS: SGOT/AST 36 U/L (15-37); SGPT/ALT 35 U/L (13-61)
[2024-04-02 11:52] LABS: BILIRUBIN,TOTAL 0.6 mg/dL (0.2-1); TOT PROT 6.2 g/dl (6.4-8.2)
[2024-04-02 11:53] LABS: ALK PHOS 112 U/L (45-117)
[2024-04-02 11:56] LABS: CREATININE 7.8 mg/dL (0.55-1.3)
[2024-04-02] MEDS: HEPARIN NA (PORCINE) 5,000 UNITS/ML 1ML VIAL IVPUSH ONE (13:49)
[2024-04-02] MEDS: ACETAMINOPHEN 500 MG TABLET (FP) PO PRN (21:57)
[2024-04-03 10:12] LABS: POTASSIUM 3.6 mmol/L (3.5-5.1)
[2024-04-03 10:14] LABS: CALCIUM 8.9 mg/dL (8.5-10.1)
[2024-04-03 10:16] LABS: BLOOD UREA NITROGEN 30.3 mg/dL (7-18)
[2024-04-03 10:18] LABS: ALBUMIN 2.3 g/dl (3.4-5.0)
[2024-04-03 10:21] LABS: CREATININE 5.1 mg/dL (0.55-1.3)
[2024-04-03 10:22] LABS: BILIRUBIN,TOTAL 0.5 mg/dL (0.2-1); TOT PROT 6.5 g/dl (6.4-8.2)
[2024-04-03] MEDS ORDERED: LIDOCAINE HCL 1%, 10 MG/ML (20ML VIAL) ONE (11:08)
[2024-04-03] MEDS ORDERED: DEXAMETHASONE SOD PHOSPHATE 4 MG/1 ML VIAL ONE (11:08)
[2024-04-03] MEDS ORDERED: BUPIVACAINE HCL/PF 0.5% (5MG/ML) 10 ML VIAL ONE (11:09)
[2024-04-03] MEDS ORDERED: GENTAMICIN SO4 80 MG/2 ML VIAL ONE (11:19)
[2024-04-03] MEDS ORDERED: MIDAZOLAM HCL 2 MG/2 ML SINGLE DOSE VIAL ONE (11:37)
[2024-04-03] MEDS ORDERED: PROPOFOL 20 ML ONE (11:40)
[2024-04-03] MEDS: LIDOCAINE HCL 1%, 10 MG/ML (20ML VIAL) INF ONE ×2 (11:54)
[2024-04-03] MEDS: BUPIVACAINE HCL/PF 0.5% (5 MG/ML) 30 ML VIAL IJ ONE ×2 (11:54)
[2024-04-03] MEDS ORDERED: VANCOMYCIN 1,000 MG VIAL (RESTRICTED TO ID ONLY) ONE (11:59)
[2024-04-03] MEDS: VANCOMYCIN 1,000 MG VIAL (RESTRICTED TO ID ONLY) IVPB ONE (12:28)
[2024-04-03] MEDS ORDERED: LABETALOL HCL 20 MG/4 ML VIAL IVPUSH PRN (12:48)
[2024-04-03] MEDS: INSULIN ASPART SLIDING SCALE (NOVOLOG) 1 VIAL SQ SCH (17:25)
[2024-04-03] MEDS ORDERED: SODIUM CHLORIDE 250 ML IV PRN (17:46)
[2024-04-03] MEDS: ATORVASTATIN CA 80 MG TABLET (FP) PO SCH (22:25)
[2024-04-03] MEDS: hydrALAZINE HCL 10 MG TABLET PO SCH (22:25)
[2024-04-03] MEDS: ACETAMINOPHEN 500 MG TABLET (FP) PO PRN (22:26)
[2024-04-03] MEDS: PIPERACILLIN/TAZOB 4.5 GM 4.5 GM/100 ML BAG IVPB SCH (22:26)
[2024-04-04] MEDS: ACETAMINOPHEN 1000 MG/100 ML BAG IVPB ONE (06:39)
[2024-04-04] MEDS: oxyCODONE HCL 5 MG TABLET PO PRN (07:49)
[2024-04-04] MEDS: ACETAMINOPHEN 325 MG TABLET (FP) PO PRN (07:50)
[2024-04-04 08:54] LABS: BASO % 0.5 % (0-2.0); HEMATOCRIT 31.6 % (35.4-49); HEMOGLOBIN 10.4 GM/dL (11.7-16.9); MCH 29.4 pg (25.7-33.7); MCHC 32.8 g/dl (32.0-35.9); MEAN CELL VOLUME 89.7 fl (80-96); MEAN PLT VOLUME 9.1 fl (7.5-11.1); MONO % 6.9 % (3.8-10.2); NEUT % 76.6 % (42.8-82.8); PLATELET COUNT 146 10^3/uL (134-434); RBC 3.53 M/mm3 (4.00-5.60); WHITE BLOOD COUNT 10.3 K/mm3 (4.0-10.0)
[2024-04-04 09:13] LABS: POTASSIUM 3.6 mmol/L (3.5-5.1)
[2024-04-04 09:18] LABS: ALBUMIN 2.2 g/dl (3.4-5.0); CALCIUM 8.3 mg/dL (8.5-10.1)
[2024-04-04 09:19] LABS: BLOOD UREA NITROGEN 45.6 mg/dL (7-18)
[2024-04-04 09:22] LABS: CREATININE 6.5 mg/dL (0.55-1.3)
[2024-04-04 09:23] LABS: BILIRUBIN,TOTAL 0.5 mg/dL (0.2-1); TOT PROT 5.9 g/dl (6.4-8.2)
[2024-04-04 09:47] LABS: HEMATOCRIT 30.4 % (35.4-49); HEMOGLOBIN 10.2 GM/dL (11.7-16.9); MCH 29.4 pg (25.7-33.7); MCHC 33.6 g/dl (32.0-35.9); MEAN CELL VOLUME 87.6 fl (80-96); MEAN PLT VOLUME 8.9 fl (7.5-11.1); PLATELET COUNT 140 10^3/uL (134-434); RBC 3.47 M/mm3 (4.00-5.60); RDW 14.3 % (11.9-15.9); WHITE BLOOD COUNT 10.4 K/mm3 (4.0-10.0)
[2024-04-04 09:59] LABS: POTASSIUM 3.7 mmol/L (3.5-5.1)
[2024-04-04 10:02] LABS: ALBUMIN 2.1 g/dl (3.4-5.0); CALCIUM 8.5 mg/dL (8.5-10.1)
[2024-04-04 10:03] LABS: BLOOD UREA NITROGEN 50.8 mg/dL (7-18)
[2024-04-04 10:06] LABS: CREATININE 6.5 mg/dL (0.55-1.3)
[2024-04-04 10:07] LABS: BILIRUBIN,TOTAL 0.5 mg/dL (0.2-1); TOT PROT 5.9 g/dl (6.4-8.2)
[2024-04-04] MEDS: EPOETIN ALFA-EPBX 10,000 UNIT/ML VIAL SQ ONE (11:04)
[2024-04-04] MEDS: NIFEdipine E.R. 90 MG TABLET PO SCH (12:58)
[2024-04-04] MEDS: CLOPIDOGREL BISULFATE 75 MG TABLET (FP) PO SCH (12:58)
[2024-04-04] MEDS: COLLAGENASE CLOSTRIDIUM HIST. 30 GRAMS TUBE TP SCH (14:20)
[2024-04-04] MEDS: HEPARIN NA (PORCINE) 5,000 UNITS/ML 1ML VIAL SQ SCH (21:43)
[2024-04-05] MEDS: ASPIRIN 81 MG CHEWABLE TABLETS PO SCH (09:10)
[2024-04-05 09:46] LABS: BASO % 0.7 % (0-2.0); EOS % 5.2 % (0-4.5); HEMATOCRIT 34.1 % (35.4-49); HEMOGLOBIN 11.4 GM/dL (11.7-16.9); LYMPH % 12.1 % (8-40); MCH 29.7 pg (25.7-33.7); MCHC 33.4 g/dl (32.0-35.9); MEAN CELL VOLUME 89.1 fl (80-96); MONO % 5.7 % (3.8-10.2); NEUT % 76.3 % (42.8-82.8); PLATELET COUNT 158 10^3/uL (134-434); RBC 3.83 M/mm3 (4.00-5.60); RDW 14.9 % (11.9-15.9)
[2024-04-05 10:03] LABS: POTASSIUM 3.8 mmol/L (3.5-5.1)
[2024-04-05 10:15] LABS: BLOOD UREA NITROGEN 29.6 mg/dL (7-18); CALCIUM 8.6 mg/dL (8.5-10.1)
[2024-04-05 10:18] LABS: ALBUMIN 2.3 g/dl (3.4-5.0); CREATININE 5.3 mg/dL (0.55-1.3)
[2024-04-05 10:20] LABS: BILIRUBIN,TOTAL 0.5 mg/dL (0.2-1); TOT PROT 6.4 g/dl (6.4-8.2)
[2024-04-06 09:22] LABS: BASO % 0.6 % (0-2.0); HEMATOCRIT 31.3 % (35.4-49); HEMOGLOBIN 10.2 GM/dL (11.7-16.9); LYMPH % 13.2 % (8-40); MCH 29.1 pg (25.7-33.7); MCHC 32.7 g/dl (32.0-35.9); MEAN PLT VOLUME 9.4 fl (7.5-11.1); MONO % 5.8 % (3.8-10.2); NEUT % 74.4 % (42.8-82.8); PLATELET COUNT 161 10^3/uL (134-434); RBC 3.52 M/mm3 (4.00-5.60); RDW 14.8 % (11.9-15.9); WHITE BLOOD COUNT 10.5 K/mm3 (4.0-10.0)
[2024-04-06 09:47] LABS: POTASSIUM 3.9 mmol/L (3.5-5.1)
[2024-04-06 10:03] LABS: CALCIUM 8.7 mg/dL (8.5-10.1)
[2024-04-06 10:04] LABS: ALBUMIN 2.2 g/dl (3.4-5.0)
[2024-04-06 10:07] LABS: CREATININE 7.3 mg/dL (0.55-1.3)
[2024-04-06 10:08] LABS: BLOOD UREA NITROGEN 40.8 mg/dL (7-18)
[2024-04-06 10:10] LABS: BILIRUBIN,TOTAL 0.6 mg/dL (0.2-1); TOT PROT 6.3 g/dl (6.4-8.2)
[2024-04-06] MEDS ORDERED: SODIUM CHLORIDE 250 ML IV PRN (14:36)
[2024-04-06] MEDS: DOXYCYCLINE HYCLATE 100 MG CAPSULE PO SCH (17:49)
[2024-04-07 09:46] LABS: HEMATOCRIT 30.7 % (35.4-49); HEMOGLOBIN 10.4 GM/dL (11.7-16.9); MCH 30.2 pg (25.7-33.7); MCHC 33.9 g/dl (32.0-35.9); MEAN CELL VOLUME 88.8 fl (80-96); MEAN PLT VOLUME 9.2 fl (7.5-11.1); PLATELET COUNT 158 10^3/uL (134-434); RBC 3.46 M/mm3 (4.00-5.60); RDW 14.8 % (11.9-15.9); WHITE BLOOD COUNT 10.7 K/mm3 (4.0-10.0)
[2024-04-07 10:02] LABS: CHLORIDE 97 mmol/L (98-107); POTASSIUM 4.2 mmol/L (3.5-5.1); SODIUM 134 mmol/L (136-145)
[2024-04-07 10:13] LABS: CALCIUM 8.7 mg/dL (8.5-10.1)
[2024-04-07 10:14] LABS: ALBUMIN 2.2 g/dl (3.4-5.0); ANION GAP 15 mmol/L (4-13); BLOOD UREA NITROGEN 50.8 mg/dL (7-18); CO2 21 mmol/L (21-32); GLUCOSE,RANDOM 106 mg/dL (74-106)
[2024-04-07 10:16] LABS: SGOT/AST 24 U/L (15-37); SGPT/ALT 26 U/L (13-61)
[2024-04-07 10:17] LABS: BILIRUBIN,TOTAL 0.7 mg/dL (0.2-1)
[2024-04-07 10:18] LABS: TOT PROT 6.4 g/dl (6.4-8.2)
[2024-04-07 10:19] LABS: ALK PHOS 92 U/L (45-117)
[2024-04-07 10:21] LABS: CREATININE 8.8 mg/dL (0.55-1.3)
[2024-04-07 11:29] LABS: ANISOCYTOSIS 1+; MACROCYTOSIS 0
[2024-04-07] MEDS: HEPARIN NA (PORCINE) 5,000 UNITS/ML 1ML VIAL IVPUSH ONE (14:26)
[2024-04-07] MEDS: EPOETIN ALFA-EPBX 4,000 UNIT/ML VIAL IVPUSH ONE (14:26)
[2024-04-08 08:39] LABS: POTASSIUM 3.6 mmol/L (3.5-5.1)
[2024-04-08 08:42] LABS: BASO % 0.6 % (0-2.0); EOS % 4.6 % (0-4.5); HEMATOCRIT 30.5 % (35.4-49); HEMOGLOBIN 10.2 GM/dL (11.7-16.9); MCHC 33.4 g/dl (32.0-35.9); MEAN PLT VOLUME 9.3 fl (7.5-11.1); MONO % 6.3 % (3.8-10.2); NEUT % 77.5 % (42.8-82.8); PLATELET COUNT 174 10^3/uL (134-434); RBC 3.39 M/mm3 (4.00-5.60); RDW 14.9 % (11.9-15.9); WHITE BLOOD COUNT 10.2 K/mm3 (4.0-10.0)
[2024-04-08 08:47] LABS: CALCIUM 8.4 mg/dL (8.5-10.1)
[2024-04-08 08:48] LABS: ALBUMIN 2.1 g/dl (3.4-5.0); BLOOD UREA NITROGEN 31.1 mg/dL (7-18)
[2024-04-08 08:50] LABS: CREATININE 5.8 mg/dL (0.55-1.3)
[2024-04-08 08:52] LABS: BILIRUBIN,TOTAL 0.5 mg/dL (0.2-1)
[2024-04-08] MEDS ORDERED: SODIUM CHLORIDE 250 ML IV PRN (19:36)
[2024-04-09] MEDS: HEPARIN NA (PORCINE) 5,000 UNITS/ML 1ML VIAL IVPUSH ONE (09:30)
[2024-04-09 10:06] LABS: INR 1.15 (0.83-1.09); PROTHROMBIN TIME (PATIENT) 13.2 SEC (9.7-13.0)
[2024-04-09 10:17] LABS: POTASSIUM 3.9 mmol/L (3.5-5.1)
[2024-04-09 10:21] LABS: CALCIUM 8.5 mg/dL (8.5-10.1)
[2024-04-09 10:22] LABS: BLOOD UREA NITROGEN 42.1 mg/dL (7-18); MAGNESIUM 1.7 mg/dL (1.8-2.4)
[2024-04-09 10:25] LABS: CREATININE 7.4 mg/dL (0.55-1.3)
[2024-04-09 10:26] LABS: BILIRUBIN,TOTAL 0.5 mg/dL (0.2-1); TOT PROT 5.9 g/dl (6.4-8.2)
[2024-04-09] MEDS: EPOETIN ALFA-EPBX 4,000 UNIT/ML VIAL IVPUSH ONE (10:54)
[2024-04-10] MEDS ORDERED: MIDAZOLAM HCL 2 MG/2 ML SINGLE DOSE VIAL ONE (10:07)
[2024-04-10] MEDS ORDERED: PROPOFOL 40 ML ONE (10:07)
[2024-04-10] MEDS ORDERED: SUCCINYLCHOLINE CHLORIDE 200 MG/10 ML SYRINGE ONE (10:07)
[2024-04-10] MEDS ORDERED: LIDOCAINE HCL 1%, 10 MG/ML (20ML VIAL) ONE (10:08)
[2024-04-10] MEDS ORDERED: BUPIVACAINE HCL/PF 0.5% (5MG/ML) 10 ML VIAL ONE (10:09)
[2024-04-10] MEDS ORDERED: THROMBIN (BOVINE) 5,000 UNIT VIAL TP ONE (10:22)
[2024-04-10] MEDS ORDERED: LIDOCAINE 1%/EPI 1:100000 (20 ML MULTI DOSE VIAL) ONE (10:22)
[2024-04-10] MEDS: PIPERACILLIN/TAZOBACTAM 3.375 GM VIAL IVPB ONE (10:23)
[2024-04-10] MEDS ORDERED: VANCOMYCIN 1,000 MG VIAL (RESTRICTED TO ID ONLY) ONE (10:51)
[2024-04-10] MEDS ORDERED: LACTATED RINGERS SOLUTION 1,000 ML IV SCH ×2 (11:30→11:40)
[2024-04-10] MEDS ORDERED: LABETALOL HCL 20 MG/4 ML VIAL IVPUSH PRN (11:40)
[2024-04-10] MEDS: hydrALAZINE HCL 10 MG TABLET PO SCH (13:00)
[2024-04-10] MEDS: NIFEdipine E.R. 90 MG TABLET PO SCH (13:00)
[2024-04-10] MEDS: DOXYCYCLINE HYCLATE 100 MG CAPSULE PO SCH (13:00)
[2024-04-10 15:12] LABS: INR 1.16 (0.83-1.09)
[2024-04-10 15:15] LABS: ACTIVATED PTT 40.7 SECONDS (25.2-36.5)
[2024-04-10 15:22] LABS: BASO % 0.9 % (0-2.0); EOS % 5.2 % (0-4.5); HEMATOCRIT 31.2 % (35.4-49); HEMOGLOBIN 10.1 GM/dL (11.7-16.9); LYMPH % 12.1 % (8-40); MCH 29.8 pg (25.7-33.7); MCHC 32.4 g/dl (32.0-35.9); MEAN CELL VOLUME 91.9 fl (80-96); MEAN PLT VOLUME 9.2 fl (7.5-11.1); MONO % 6.4 % (3.8-10.2); NEUT % 75.4 % (42.8-82.8); PLATELET COUNT 183 10^3/uL (134-434); RBC 3.39 M/mm3 (4.00-5.60); RDW 15.7 % (11.9-15.9); WHITE BLOOD COUNT 8.2 K/mm3 (4.0-10.0)
[2024-04-10 15:49] LABS: BLOOD UREA NITROGEN 29.9 mg/dL (7-18)
[2024-04-10 15:50] LABS: CALCIUM 8.2 mg/dL (8.5-10.1); MAGNESIUM 1.6 mg/dL (1.8-2.4)
[2024-04-10 15:52] LABS: CREATININE 5.5 mg/dL (0.55-1.3)
[2024-04-10 15:54] LABS: BILIRUBIN,TOTAL 0.5 mg/dL (0.2-1); TOT PROT 5.8 g/dl (6.4-8.2)
[2024-04-10] MEDS: INSULIN ASPART SLIDING SCALE (NOVOLOG) 1 VIAL SQ SCH (18:02)
[2024-04-10] MEDS: ACETAMINOPHEN 325 MG TABLET (FP) PO PRN (19:56)
[2024-04-10] MEDS: ATORVASTATIN CA 80 MG TABLET (FP) PO SCH (22:01)
[2024-04-10] MEDS: PIPERACILLIN/TAZOB 4.5 GM 4.5 GM/100 ML BAG IVPB SCH (22:02)
[2024-04-10] MEDS: HEPARIN NA (PORCINE) 5,000 UNITS/ML 1ML VIAL SQ SCH (22:02)
[2024-04-10] MEDS: morphine CARPU-JECT 2 MG/1 ML DISP.SYRIN IVPUSH ONE (23:52)
[2024-04-11] MEDS: CLOPIDOGREL BISULFATE 75 MG TABLET (FP) PO SCH (09:12)
[2024-04-11] MEDS: ASPIRIN 81 MG CHEWABLE TABLETS PO SCH (09:12)
[2024-04-11 09:40] LABS: POTASSIUM 3.8 mmol/L (3.5-5.1)
[2024-04-11 09:50] LABS: CALCIUM 8.6 mg/dL (8.5-10.1)
[2024-04-11 09:51] LABS: ALBUMIN 2.1 g/dl (3.4-5.0); BLOOD UREA NITROGEN 40.8 mg/dL (7-18); MAGNESIUM 1.7 mg/dL (1.8-2.4)
[2024-04-11 09:54] LABS: CREATININE 6.7 mg/dL (0.55-1.3)
[2024-04-11 09:55] LABS: BILIRUBIN,TOTAL 0.5 mg/dL (0.2-1); TOT PROT 6.1 g/dl (6.4-8.2)
[2024-04-11] MEDS ORDERED: SODIUM CHLORIDE 250 ML IV PRN (12:28)
[2024-04-12 09:15] LABS: HEMOGLOBIN 9.7 GM/dL (11.7-16.9); MCH 30.7 pg (25.7-33.7); MCHC 33.3 g/dl (32.0-35.9); MEAN CELL VOLUME 92.2 fl (80-96); MEAN PLT VOLUME 9.1 fl (7.5-11.1); PLATELET COUNT 174 10^3/uL (134-434); RBC 3.15 M/mm3 (4.00-5.60); WHITE BLOOD COUNT 7.9 K/mm3 (4.0-10.0)
[2024-04-12 09:27] LABS: POTASSIUM 3.8 mmol/L (3.5-5.1)
[2024-04-12 09:33] LABS: ALBUMIN 2.1 g/dl (3.4-5.0); BLOOD UREA NITROGEN 24.3 mg/dL (7-18); CALCIUM 8.9 mg/dL (8.5-10.1)
[2024-04-12 09:38] LABS: BILIRUBIN,TOTAL 0.6 mg/dL (0.2-1); TOT PROT 6.3 g/dl (6.4-8.2)
[2024-04-12] MEDS: MAGNESIUM OXIDE 400 MG TABLET (FP) PO ONE (12:10)
[2024-04-13 08:39] LABS: HEMATOCRIT 29.3 % (35.4-49); HEMOGLOBIN 9.5 GM/dL (11.7-16.9); MCH 29.5 pg (25.7-33.7); MCHC 32.4 g/dl (32.0-35.9); MEAN PLT VOLUME 9.2 fl (7.5-11.1); PLATELET COUNT 165 10^3/uL (134-434); RBC 3.22 M/mm3 (4.00-5.60); WHITE BLOOD COUNT 8.3 K/mm3 (4.0-10.0)
[2024-04-13 09:02] LABS: POTASSIUM 4.2 mmol/L (3.5-5.1)
[2024-04-13 09:06] LABS: CALCIUM 8.6 mg/dL (8.5-10.1)
[2024-04-13 09:07] LABS: ALBUMIN 2.1 g/dl (3.4-5.0); BLOOD UREA NITROGEN 37.9 mg/dL (7-18); MAGNESIUM 1.8 mg/dL (1.8-2.4)
[2024-04-13 09:10] LABS: CREATININE 6.5 mg/dL (0.55-1.3)
[2024-04-13 09:11] LABS: BILIRUBIN,TOTAL 0.6 mg/dL (0.2-1); TOT PROT 6.3 g/dl (6.4-8.2)
[2024-04-14 13:48] LABS: EOS % 5.2 % (0-4.5); HEMATOCRIT 23.4 % (35.4-49); HEMOGLOBIN 7.8 GM/dL (11.7-16.9); LYMPH % 14.7 % (8-40); MCH 29.8 pg (25.7-33.7); MCHC 33.4 g/dl (32.0-35.9); MEAN CELL VOLUME 89.1 fl (80-96); MEAN PLT VOLUME 9.2 fl (7.5-11.1); MONO % 7.2 % (3.8-10.2); NEUT % 71.9 % (42.8-82.8); PLATELET COUNT 147 10^3/uL (134-434); RBC 2.63 M/mm3 (4.00-5.60); RDW 15.8 % (11.9-15.9); WHITE BLOOD COUNT 6.7 K/mm3 (4.0-10.0)
[2024-04-14] MEDS ORDERED: SODIUM CHLORIDE 250 ML IV PRN (14:16)
[2024-04-14 14:18] LABS: POTASSIUM 4.1 mmol/L (3.5-5.1)
[2024-04-14 14:20] LABS: ALBUMIN 1.8 g/dl (3.4-5.0); CALCIUM 8.5 mg/dL (8.5-10.1)
[2024-04-14 14:23] LABS: CREATININE 7.3 mg/dL (0.55-1.3)
[2024-04-14 14:25] LABS: BILIRUBIN,TOTAL 0.4 mg/dL (0.2-1); TOT PROT 5.5 g/dl (6.4-8.2)
[2024-04-14] MEDS: EPOETIN ALFA-EPBX 10,000 UNIT/ML VIAL IVPUSH ONE (15:07)
[2024-04-15 08:32] LABS: BASO % 0.9 % (0-2.0); HEMATOCRIT 26.2 % (35.4-49); HEMOGLOBIN 8.8 GM/dL (11.7-16.9); LYMPH % 10.5 % (8-40); MCH 30.1 pg (25.7-33.7); MCHC 33.6 g/dl (32.0-35.9); MEAN CELL VOLUME 89.4 fl (80-96); MEAN PLT VOLUME 9.1 fl (7.5-11.1); MONO % 6.6 % (3.8-10.2); PLATELET COUNT 140 10^3/uL (134-434); RBC 2.93 M/mm3 (4.00-5.60); RDW 16.1 % (11.9-15.9); WHITE BLOOD COUNT 7.2 K/mm3 (4.0-10.0)
[2024-04-15 08:42] LABS: POTASSIUM 3.8 mmol/L (3.5-5.1)
[2024-04-15 08:44] LABS: ALBUMIN 1.9 g/dl (3.4-5.0); CALCIUM 8.2 mg/dL (8.5-10.1)
[2024-04-15 08:47] LABS: BLOOD UREA NITROGEN 39.7 mg/dL (7-18); CREATININE 4.8 mg/dL (0.55-1.3)
[2024-04-15 08:49] LABS: BILIRUBIN,TOTAL 0.5 mg/dL (0.2-1); TOT PROT 5.9 g/dl (6.4-8.2)
[2024-04-15 10:01] LABS: IRON SERUM 68 ug/dL (50-175); TOTAL IRON BINDING CAPACITY 137 ug/dL (250-450)
[2024-04-15] MEDS: AMOX TR/POT CLAV 500MG/125MG TABLETS (FP) PO ONE (17:30)
[2024-04-16 08:35] LABS: BASO % 1.1 % (0-2.0); EOS % 5.2 % (0-4.5); HEMATOCRIT 24.3 % (35.4-49); HEMOGLOBIN 7.9 GM/dL (11.7-16.9); LYMPH % 16.6 % (8-40); MCH 29.6 pg (25.7-33.7); MCHC 32.6 g/dl (32.0-35.9); MEAN CELL VOLUME 90.9 fl (80-96); MEAN PLT VOLUME 9.5 fl (7.5-11.1); MONO % 7.5 % (3.8-10.2); NEUT % 69.6 % (42.8-82.8); PLATELET COUNT 142 10^3/uL (134-434); RBC 2.67 M/mm3 (4.00-5.60); RDW 16.3 % (11.9-15.9); WHITE BLOOD COUNT 6.7 K/mm3 (4.0-10.0)
[2024-04-16 08:55] LABS: POTASSIUM 3.8 mmol/L (3.5-5.1)
[2024-04-16 09:02] LABS: BLOOD UREA NITROGEN 53.5 mg/dL (7-18); CALCIUM 8.6 mg/dL (8.5-10.1)
[2024-04-16 09:07] LABS: BILIRUBIN,TOTAL 0.4 mg/dL (0.2-1); TOT PROT 5.7 g/dl (6.4-8.2)
[2024-04-16] MEDS ORDERED: SODIUM CHLORIDE 250 ML IV PRN (15:11)
[2024-04-16] MEDS: EPOETIN ALFA-EPBX 10,000 UNIT/ML VIAL SQ ONE (16:00)
[2024-04-16 21:51] VITALS: RESP 18
[2024-04-17 09:47] LABS: HEMATOCRIT 25.7 % (35.4-49); HEMOGLOBIN 8.5 GM/dL (11.7-16.9); MEAN CELL VOLUME 90.9 fl (80-96); MEAN PLT VOLUME 9.6 fl (7.5-11.1); PLATELET COUNT 157 10^3/uL (134-434); RBC 2.83 M/mm3 (4.00-5.60); RDW 16.3 % (11.9-15.9); WHITE BLOOD COUNT 6.5 K/mm3 (4.0-10.0)
[2024-04-17 10:03] LABS: POTASSIUM 4.2 mmol/L (3.5-5.1)
[2024-04-17 10:27] LABS: CALCIUM 9.1 mg/dL (8.5-10.1)
[2024-04-17 10:28] LABS: ALBUMIN 2.3 g/dl (3.4-5.0)
[2024-04-17 10:30] LABS: BLOOD UREA NITROGEN 26.6 mg/dL (7-18)
[2024-04-17 10:32] LABS: BILIRUBIN,TOTAL 0.4 mg/dL (0.2-1); TOT PROT 6.4 g/dl (6.4-8.2)
[2024-04-17 11:00] VITALS: BP 113/59; PULSE 70; TEMP 97.7
== END 2024-04-17 11:16 | disposition home or self-care (01) | DRG 710 ==
LOC: JER 11:25 → JERBED 12:49 → J8W 15:07
PROVIDERS: ADMIT Internal Medicine; ATTEND Nurse Practitioner Family
PROC: 047Q3ZZ Dilation of Left Anterior Tibial Artery, Percutaneous Approach (ICD-10-PCS; 2024-03-31)
PROC: 047L3ZZ Dilation of Left Femoral Artery, Percutaneous Approach (ICD-10-PCS; 2024-03-31)
PROC: 3E03317 Introduction of Other Thrombolytic into Peripheral Vein, Percutaneous Approach (ICD-10-PCS; 2024-03-31)
PROC: 04CQ3ZZ Extirpation of Matter from Left Anterior Tibial Artery, Percutaneous Approach (ICD-10-PCS; principal; 2024-03-31 11:30)
PROC: 0Y6Y0Z1 Detachment at Left 5th Toe, High, Open Approach (ICD-10-PCS; 2024-04-03)
PROC: 0JBQ0ZZ Excision of Right Foot Subcutaneous Tissue and Fascia, Open Approach (ICD-10-PCS; 2024-04-10)
PROC: 0QBN0ZZ Excision of Right Metatarsal, Open Approach (ICD-10-PCS; 2024-04-10)
PROC: 5A1D70Z Performance of Urinary Filtration, Intermittent, Less than 6 Hours Per Day (ICD-10-PCS; 2024-04-16)
DX: A41.9 Sepsis, unspecified organism (principal); I12.0 Hypertensive chronic kidney disease with stage 5 chronic kidney disease or end stage renal disease; I96 Gangrene, not elsewhere classified; N18.6 End stage renal disease; L03.115 Cellulitis of right lower limb; M86.171 Other acute osteomyelitis, right ankle and foot; E11.52 Type 2 diabetes mellitus with diabetic peripheral angiopathy with gangrene; I48.91 Unspecified atrial fibrillation; L03.116 Cellulitis of left lower limb; L97.519 Non-pressure chronic ulcer of other part of right foot with unspecified severity; L97.529 Non-pressure chronic ulcer of other part of left foot with unspecified severity; E78.5 Hyperlipidemia, unspecified; M86.672 Other chronic osteomyelitis, left ankle and foot; M86.671 Other chronic osteomyelitis, right ankle and foot; Z59.01 Sheltered homelessness; E11.65 Type 2 diabetes mellitus with hyperglycemia; Z99.2 Dependence on renal dialysis
CPT/HCPCS: 0241U-QW; 36415; 71045-TC-FY; 73630-TC-LT; 73630-TC-RT-FY; 73660-TC-FY; 73660-TC-LT-FY; 73718-TC-LT; 73718-TC-RT; 76000-TC-FY; 80048; 80053; 81003; 82803; 82962; 83036; 83540; 83550; 83605; 83735; 84484; 85025; 85027; 85610; 85651; 85730; 86140; 86704; 86803; 86850; 86900; 86901; 87040; 87070; 87075; 87077; 87086; 87186; 87205; 87340; 87517; 87522; 88304-TC; 88305-TC; 88311-TC; 93005; 93010; 93925-TC; 94760; 97116-GP; 97161-GP; 99285-25; C1713; C1760; C1769; C1894; G0480; J0131; J1644; Q5106

== ENCOUNTER 2024-07-22 10:46 | Inpatient (IN) | payer OTHER ==
[2024-07-22 13:11] LABS: ABSOLUTE IMMATURE GRANULOCYTES 0.04 x10^3/uL (0.0-0.031); BASOPHILS # 0.05 x10^3/uL (0.01-0.08); EOSINOPHIL % 5.2 % (0.8-7.0); EOSINOPHILS # 0.42 x10^3/uL (0.04-0.54); HEMATOCRIT 40.5 % (40.1-51.0); HEMOGLOBIN 13.2 g/dL (13.7-17.5); MCHC 32.6 g/dl (32.3-36.5); MEAN CELL VOLUME 88.6 fl (79.0-92.2); MONOCYTE # 0.51 x10^3/uL (0.30-0.82); MONOCYTE % 6.3 % (5.3-12.2); RDW 14.8 % (12.2-16.4)
[2024-07-22 13:46] LABS: POTASSIUM 4.2 mmol/L (3.5-5.1)
[2024-07-22 13:49] LABS: CALCIUM 8.7 mg/dL (8.5-10.1)
[2024-07-22 13:50] LABS: ALBUMIN 3.1 g/dl (3.4-5.0); BLOOD UREA NITROGEN 44.1 mg/dL (7-18)
[2024-07-22 13:53] LABS: CREATININE 5.6 mg/dL (0.55-1.3)
[2024-07-22 13:54] LABS: BILIRUBIN,TOTAL 0.4 mg/dL (0.2-1); TOT PROT 7.1 g/dl (6.4-8.2)
[2024-07-22 14:19] LABS: ERYTHROCYTE SEDIMENTATION RATE 68 mm/hr (0-20)
[2024-07-22] MEDS ORDERED: PIPERACILLIN/TAZOB 4.5 GM 4.5 GM/100 ML BAG IVPB ONE (15:12)
[2024-07-22] MEDS: PIPERACILLIN/TAZOB 4.5 GM 4.5 GM/100 ML BAG IVPB ONE (15:16)
[2024-07-22] MEDS ORDERED: VANCOMYCIN 1 GM PREMIX (F) 1 GM/200 ML BAG ONE (15:21)
[2024-07-22] MEDS: VANCOMYCIN 1,000 MG in DEXTROSE 5%-WATER - 250 ML IVPB ONE (15:27)
[2024-07-22 15:37] LABS: MEAN PLT VOLUME 11.3 fl (9.4-12.4); PLATELET COUNT 128 x10^3/uL (163-337)
[2024-07-22] MEDS: SEVELAMER CARBONATE 800 MG TAB (FP) PO SCH (17:38)
[2024-07-22 19:09] VITALS: BMI 23.3
[2024-07-22] MEDS: SODIUM CHLORIDE 1,000 ML IV SCH (21:57)
[2024-07-22] MEDS: HEPARIN NA (PORCINE) 5,000 UNITS/ML 1ML VIAL SQ SCH (21:58)
[2024-07-22] MEDS: PIPERACILLIN/TAZOB 2.25 GM 2.25 GM/50 ML BAG IVPB SCH (21:58)
[2024-07-23 09:18] LABS: HEMOGLOBIN 12.9 g/dL (13.7-17.5); MCHC 32.3 g/dl (32.3-36.5); MEAN CELL VOLUME 86.8 fl (79.0-92.2); MEAN PLT VOLUME 10.8 fl (9.4-12.4); PLATELET COUNT 122 x10^3/uL (163-337); RDW 14.8 % (12.2-16.4)
[2024-07-23 09:44] LABS: POTASSIUM 4.4 mmol/L (3.5-5.1)
[2024-07-23] MEDS: NICOTINE 7 MG/24 HOURS TOPICAL PATCH TD SCH (09:59)
[2024-07-23 10:13] LABS: BLOOD UREA NITROGEN 57.7 mg/dL (7-18); CALCIUM 8.5 mg/dL (8.5-10.1)
[2024-07-23 10:14] LABS: MAGNESIUM 2.3 mg/dL (1.8-2.4)
[2024-07-23 10:17] LABS: CREATININE 6.8 mg/dL (0.55-1.3)
[2024-07-23] MEDS: HEPARIN NA (PORCINE) 5,000 UNITS/ML 1ML VIAL IVPUSH ONE (14:14)
[2024-07-23] MEDS ORDERED: SODIUM CHLORIDE 250 ML IV PRN (15:00)
[2024-07-23] MEDS: PIPERACILLIN/TAZOB 2.25 GM 2.25 GM in DEXTROSE 5%-WATER - 50 ML IVPB SCH (16:46)
[2024-07-23] MEDS: PIPERACILLIN/TAZOB 2.25 GM 2.25 GM/50 ML BAG IVPB SCH (17:39)
[2024-07-23] MEDS: INSULIN ASPART SLIDING SCALE (NOVOLOG) 1 VIAL SQ SCH (22:05)
[2024-07-24] MEDS ORDERED: SODIUM CHLORIDE 250 ML IV PRN (11:32)
[2024-07-24 11:44] LABS: ABSOLUTE IMMATURE GRANULOCYTES 0.04 x10^3/uL (0.0-0.031); BASOPHILS # 0.03 x10^3/uL (0.01-0.08); EOSINOPHIL % 5.8 % (0.8-7.0); HEMATOCRIT 39.1 % (40.1-51.0); HEMOGLOBIN 12.6 g/dL (13.7-17.5); MCHC 32.2 g/dl (32.3-36.5); MEAN CELL VOLUME 86.1 fl (79.0-92.2); MEAN PLT VOLUME 10.5 fl (9.4-12.4); MONOCYTE # 0.55 x10^3/uL (0.30-0.82); MONOCYTE % 7.9 % (5.3-12.2); PLATELET COUNT 123 x10^3/uL (163-337); RDW 14.8 % (12.2-16.4)
[2024-07-24 11:51] LABS: INR 1.12 (0.83-1.09); PROTHROMBIN TIME (PATIENT) 12.3 SEC (9.7-13.0)
[2024-07-24 12:02] LABS: POTASSIUM 3.8 mmol/L (3.5-5.1)
[2024-07-24 12:19] LABS: CALCIUM 8.2 mg/dL (8.5-10.1)
[2024-07-24 12:22] LABS: CREATININE 4.8 mg/dL (0.55-1.3)
[2024-07-24 12:23] LABS: BILIRUBIN,TOTAL 0.4 mg/dL (0.2-1)
[2024-07-24 12:37] LABS: ALBUMIN 2.4 g/dl (3.4-5.0)
[2024-07-24] MEDS: DOXYCYCLINE HYCLATE 100 MG CAPSULE PO SCH (17:42)
[2024-07-24 17:58] LABS: POTASSIUM 3.9 mmol/L (3.5-5.1)
[2024-07-24 18:01] LABS: ALBUMIN 2.6 g/dl (3.4-5.0); BLOOD UREA NITROGEN 45.9 mg/dL (7-18); CALCIUM 8.5 mg/dL (8.5-10.1)
[2024-07-24 18:05] LABS: CREATININE 5.3 mg/dL (0.55-1.3)
[2024-07-24 18:06] LABS: TOT PROT 6.3 g/dl (6.4-8.2)
[2024-07-24 18:08] LABS: BILIRUBIN,TOTAL 0.5 mg/dL (0.2-1)
[2024-07-25 21:51] VITALS: RESP 18
[2024-07-26 07:41] LABS: ABSOLUTE IMMATURE GRANULOCYTES 0.04 x10^3/uL (0.0-0.031); BASOPHILS # 0.04 x10^3/uL (0.01-0.08); EOSINOPHILS # 0.77 x10^3/uL (0.04-0.54); HEMATOCRIT 39.4 % (40.1-51.0); HEMOGLOBIN 12.8 g/dL (13.7-17.5); MCHC 32.5 g/dl (32.3-36.5); MEAN CELL VOLUME 87.4 fl (79.0-92.2); MEAN PLT VOLUME 10.8 fl (9.4-12.4); MONOCYTE # 0.56 x10^3/uL (0.30-0.82); PLATELET COUNT 127 x10^3/uL (163-337); RDW 14.6 % (12.2-16.4)
[2024-07-26 08:02] LABS: POTASSIUM 3.8 mmol/L (3.5-5.1)
[2024-07-26 08:10] LABS: BLOOD UREA NITROGEN 34.8 mg/dL (7-18); CALCIUM 8.5 mg/dL (8.5-10.1)
[2024-07-26 08:11] LABS: ALBUMIN 2.5 g/dl (3.4-5.0)
[2024-07-26 08:13] LABS: BILIRUBIN,TOTAL 0.8 mg/dL (0.2-1)
[2024-07-26 08:14] LABS: CREATININE 4.6 mg/dL (0.55-1.3); TOT PROT 6.2 g/dl (6.4-8.2)
[2024-07-26] MEDS: LINEZOLID 600 MG TABLET (RESTRICTED TO ID) PO SCH (13:24)
[2024-07-26] MEDS: CEFTRIAXONE 1 G/50 ML PREMIX 50 ML IVPB SCH (13:25)
[2024-07-27 07:54] LABS: ABSOLUTE IMMATURE GRANULOCYTES 0.06 x10^3/uL (0.0-0.031); BASOPHILS # 0.06 x10^3/uL (0.01-0.08); EOSINOPHIL % 11.3 % (0.8-7.0); EOSINOPHILS # 0.85 x10^3/uL (0.04-0.54); HEMATOCRIT 39.4 % (40.1-51.0); HEMOGLOBIN 12.5 g/dL (13.7-17.5); MCHC 31.7 g/dl (32.3-36.5); MEAN CELL VOLUME 87.2 fl (79.0-92.2); MONOCYTE # 0.57 x10^3/uL (0.30-0.82); MONOCYTE % 7.6 % (5.3-12.2); PLATELET COUNT 125 x10^3/uL (163-337); RDW 14.5 % (12.2-16.4)
[2024-07-27 08:11] LABS: POTASSIUM 4.3 mmol/L (3.5-5.1)
[2024-07-27 08:15] LABS: CALCIUM 8.5 mg/dL (8.5-10.1)
[2024-07-27 08:16] LABS: ALBUMIN 2.5 g/dl (3.4-5.0); BLOOD UREA NITROGEN 50.1 mg/dL (7-18)
[2024-07-27 08:20] LABS: BILIRUBIN,TOTAL 0.6 mg/dL (0.2-1); TOT PROT 6.2 g/dl (6.4-8.2)
[2024-07-27 08:22] LABS: CREATININE 6.2 mg/dL (0.55-1.3)
[2024-07-28] MEDS ORDERED: SODIUM CHLORIDE 250 ML IV PRN (08:09)
[2024-07-28] MEDS ORDERED: HEPARIN NA (PORCINE) 5,000 UNITS/ML 1ML VIAL IVPUSH ONE (08:15)
[2024-07-28] MEDS: HEPARIN NA (PORCINE) 5,000 UNITS/ML 1ML VIAL IVPUSH ONE (09:00)
[2024-07-28 09:39] LABS: ABSOLUTE IMMATURE GRANULOCYTES 0.06 x10^3/uL (0.0-0.031); BASOPHILS # 0.06 x10^3/uL (0.01-0.08); EOSINOPHIL % 13.4 % (0.8-7.0); EOSINOPHILS # 0.89 x10^3/uL (0.04-0.54); HEMATOCRIT 37.1 % (40.1-51.0); HEMOGLOBIN 12.1 g/dL (13.7-17.5); MCHC 32.6 g/dl (32.3-36.5); MEAN CELL VOLUME 86.1 fl (79.0-92.2); MEAN PLT VOLUME 11.2 fl (9.4-12.4); MONOCYTE # 0.43 x10^3/uL (0.30-0.82); MONOCYTE % 6.5 % (5.3-12.2); PLATELET COUNT 140 x10^3/uL (163-337); RDW 14.2 % (12.2-16.4)
[2024-07-28 10:05] LABS: CHLORIDE 96 mmol/L (98-107); SODIUM 133 mmol/L (136-145)
[2024-07-28 10:07] LABS: CALCIUM 8.2 mg/dL (8.5-10.1)
[2024-07-28 10:08] LABS: ALBUMIN 2.4 g/dl (3.4-5.0); ANION GAP 10 mmol/L (4-13); BLOOD UREA NITROGEN 60.6 mg/dL (7-18); CO2 26 mmol/L (21-32); GLUCOSE,RANDOM 148 mg/dL (74-106)
[2024-07-28 10:11] LABS: CREATININE 7.7 mg/dL (0.55-1.3); SGOT/AST 36 U/L (15-37); SGPT/ALT 19 U/L (13-61)
[2024-07-28 10:12] LABS: BILIRUBIN,TOTAL 0.5 mg/dL (0.2-1)
[2024-07-28 10:13] LABS: TOT PROT 6.2 g/dl (6.4-8.2)
[2024-07-28 10:14] LABS: ALK PHOS 115 U/L (45-117)
[2024-07-28 12:41] VITALS: BP 153/62; PULSE 92; TEMP 99.3
== END 2024-07-28 13:46 | disposition home or self-care (01) | DRG 380 ==
LOC: JER 10:46 → JERBED 14:40 → J8W 15:48
PROVIDERS: ADMIT Internal Medicine; ATTEND Nurse Practitioner Acute Care
PROC: 5A1D70Z Performance of Urinary Filtration, Intermittent, Less than 6 Hours Per Day (ICD-10-PCS; principal; 2024-07-28)
DX: L97.529 Non-pressure chronic ulcer of other part of left foot with unspecified severity (principal); N18.6 End stage renal disease; I12.0 Hypertensive chronic kidney disease with stage 5 chronic kidney disease or end stage renal disease; L03.314 Cellulitis of groin; E78.5 Hyperlipidemia, unspecified; F17.200 Nicotine dependence, unspecified, uncomplicated; L03.116 Cellulitis of left lower limb; Z99.2 Dependence on renal dialysis; E11.9 Type 2 diabetes mellitus without complications
CPT/HCPCS: 36415; 73630-TC-LT; 73630-TC-RT-FY; 76882-TC-RT-FY; 80048; 80053; 82962; 83036; 83735; 84100; 85025; 85027; 85610; 85651; 86140; 86803; 87070; 87186; 87205; 87340; 87522; 99285-25; J1644